=== PATIENT | female | born 1960 | race Caucasian/White ===

== ENCOUNTER → 2018-04-23 13:09 | Outpatient (CLI) | payer OTHER, SELFPAY ==
--- NOTE | 2018-04-23 | DI.US.S_ITS ---
PROCEDURE: US RENAL COMPLETE INDICATIONS: KIDNEY STONES TECHNIQUE: Real-time scanning was performed of the kidneys and bladder, with image documentation. COMPARISON: [facility], CR, XR ABDOMEN 1 VIEW, 04/17/2018, 13:38. [facility], CR, KUB XRAY (1 VIEW ABDOMEN), 11/27/2015, 13:47. [facility], US, RENAL COMPLETE, 01/15/2013, 8:43. FINDINGS: Kidneys: Kidneys are normal in size. Right kidney measures 10.6 cm long; left kidney measures 11.2 cm long. Right renal cortical thickness is 1.3 cm; left renal cortical thickness is 1.2 cm. Renal cortical echotexture is normal. No hydronephrosis. 3 mm left inferior pole nonobstructing stone. Bladder: Pre-void bladder volume is 23 mL. Post-void residual is unable to be evaluated. Pre-void images demonstrate no intraluminal masses or stones. On pre-void images, neither ureteral jets are noted with color Doppler interrogation. (Of note, ureteral jets may not be detectable in up to 25% of cases due to insufficient differences in specific gravity between ureteral and bladder urine). Miscellaneous: No free pelvic fluid. IMPRESSION: 1. 3 mm nonobstructing left renal calcification. Dictated by: Joe Renae Karthik Interpreted: Rubén Rojas MD on 04/23/2018 at 14:25 Approved by: Rubén Rojas M.D. on 04/23/2018 at 17:03
== END ==
PROVIDERS: Family Provider Student in an Organized Health Care Education/Training Program; PCP Physician Assistant Medical; Visit Provider Urology
DX: N20.0 Calculus of kidney (principal)
CPT/HCPCS: 76770

== ENCOUNTER → 2018-07-25 11:44 | Outpatient (CLI) | payer OTHER, SELFPAY ==
--- NOTE | 2018-07-25 | DI.MG.S_ITS ---
BILATERAL DIGITAL SCREENING MAMMOGRAM 3D/2D WITH CAD: 07/25/2018 CLINICAL: Routine screening. Family history of breast cancer. Comparison is made to exams dated: 12/21/2016 mammogram - [facility], 01/12/2016 mammogram, and 01/14/2014 mammogram - [facility]. The tissue of both breasts is heterogeneously dense. This may lower the sensitivity of mammography. Current study was also evaluated with a Computer Aided Detection (CAD) system. No significant masses, calcifications, or other findings are seen in either breast. There has been no significant interval change. IMPRESSION: NEGATIVE There is no mammographic evidence of malignancy. A 1 year screening mammogram is recommended. This exam was interpreted at Station ID: [id number]. NOTE: For mammograms, a report in lay terms will be sent to the patient. Approximately 15% of breast malignancies will not be visualized mammographically. In the management of a palpable breast mass, a negative mammogram must not discourage biopsy of a clinically suspicious lesion. Electronically Signed By: Reny major/arlette:07/25/2018 20:03:30 copy to: EILEEN POSEY letter sent: Normal Exam ACR BI-RADS Category 1: Negative [id number]
== END ==
PROVIDERS: PCP Naturopath; Visit Provider Physician Assistant Medical
DX: Z12.31 Encounter for screening mammogram for malignant neoplasm of breast (principal); Z80.3 Family history of malignant neoplasm of breast
CPT/HCPCS: 77063; 77067

== ENCOUNTER → 2019-01-18 14:19 | Outpatient (CLI) | payer OTHER, SELFPAY ==
--- NOTE | 2019-01-18 | DI.US.S_ITS ---
PROCEDURE: US PELVIC COMPLETE INDICATIONS: OTHER SPECIFIED ABNORMAL UTERINE AND VAGINAL BLEEDING TECHNIQUE: Real-time scanning was performed of the pelvic organs, with image documentation. Additional endovaginal scanning was necessary due to incomplete visualization of the adnexal and endometrial structures by transabdominal scanning. COMPARISON: [facility], US, US RENAL COMPLETE, 04/23/2018, 13:42. [facility], CT, IVP (ABD & PEL WWO CONTRAST), 06/26/2013, 9:58. FINDINGS: Transabdominal scanning: Limited scanning through the kidneys demonstrates normal right kidney measuring 1.0 cm in length. Left kidney measures 11.9 cm in length and there is questionable inferior calculus and mild hydronephrosis, which appear slightly progressed since 04/23/18. No pathologic free abdominal or pelvic fluid. Endovaginal scanning: Uterus: Uterus is normal in size at 4.6 x 2.2 x 3.2 cm. The endometrium measures 2 mm in combined thickness. Ovaries: Right ovary measures 1.5 x 0.8 x 1.1 cm and is unremarkable although only seen transabdominally. Left ovary measures 1.6 x 0.9 x 1.1 cm unremarkable also only seen transabdominally. IMPRESSION: No definite evidence of endometrial thickening. Mildly increased left hydronephrosis and redemonstrated left nephrolithiasis . This could be further assessed with dedicated CT KUB if clinically warranted. Dictated by: Wong Juarez M.D. on 01/18/2019 at 17:16 Approved by: Wong Juarez M.D. on 01/18/2019 at 17:20
[2019-01-18 16:04] LABS: Add Manual Diff / Slide Review NO; Basophils Absolute Auto 100 /uL (0-100); Eosinophils Absolute Auto 100 /uL (0-450); Eosinophils Percent Auto 1.7 % (2-4); Hematocrit 43.8 % (36-46); Hemoglobin 14.8 g/dL (12.0-16.0); Lymphocytes Absolute Auto 1900 /uL (1100-4500); Lymphocytes Percent Auto 31.5 % (25-40); Mean Corpuscular HGB Conc 33.9 % (30-36); Mean Corpuscular Hemoglobin 29.5 PG (26-34); Mean Corpuscular Volume 87.1 fL (80-100); Monocytes Absolute Auto 500 /uL (0-900); Monocytes Percent Auto 8.5 % (3-14); Neutrophils Absolute Auto 3400 /uL (1500-7000); Neutrophils Percent Auto 57.3 % (50-75); Platelet Count 234 X10^3/uL (150-400); Red Blood Cell Count 5.02 X10^6/uL (4.0-5.2)
[2019-01-18 16:57] LABS: Alanine Aminotransferase 21 IU/L (9-52); Albumin 4.7 g/dL (3.5-5.0); Albumin Globulin Ratio 1.7 (1.0-2.8); Alkaline Phosphatase 83 U/L (38-126); Aspartate Aminotransferase 48 IU/L (14-36); BUN Creatinine Ratio 17.5 (6-22); Bilirubin Total 0.3 mg/dL (0.2-1.3); Blood Urea Nitrogen 14 mg/dL (7-17); Calcium 10.3 mg/dL (8.4-10.2); Carbon Dioxide 32 mmol/L (22-32); Chloride 99 mmol/L (98-107); Estimated Glomerular Filt Rate > 60.0 mL/min (>60); Globulin 2.8 g/dL (1.7-4.1); Glucose 89 mg/dL (70-100); HEMOLYSIS < 15 (0-50); Potassium 4.2 mmol/L (3.4-5.1); Sodium 139 mmol/L (137-145); Total Protein 7.5 g/dL (6.3-8.2)
[2019-01-18 17:27] LABS: TSH w/ Reflex to FT4 0.52 uIU/mL (0.47-4.68)
== END ==
PROVIDERS: PCP Internal Medicine; Visit Provider Internal Medicine
DX: N93.8 Other specified abnormal uterine and vaginal bleeding (principal); N13.2 Hydronephrosis with renal and ureteral calculous obstruction; E78.00 Pure hypercholesterolemia, unspecified; I10 Essential (primary) hypertension; R39.89 Other symptoms and signs involving the genitourinary system
CPT/HCPCS: 36415; 76830; 76856; 80053; 84443; 85025

== ENCOUNTER → 2019-02-02 12:13 | Outpatient (CLI) | payer OTHER, SELFPAY ==
[2019-02-02 13:55] LABS: Alanine Aminotransferase 26 IU/L (<35); Albumin 4.8 g/dL (3.5-5.0); Aspartate Aminotransferase 46 IU/L (14-36); Calcium 10.2 mg/dL (8.4-10.2); Gamma Glutamyl Transpeptidase 23 U/L (12-43)
[2019-02-02 14:31] LABS: Ferritin 42.8 ng/mL (11.1-264)
[2019-02-02 14:32] LABS: Hepatitis B Surface Antigen NEGATIVE s/c (NEGATIVE)
[2019-02-02 14:49] LABS: Hep C Virus Ab w/Reflex Quant NEGATIVE s/c (NEGATIVE)
[2019-02-05 15:31] LABS: Hepatitis B Core Antibody Nonreactive (Nonreactive)
[2019-02-05 16:42] LABS: Parathyroid Hormone Int 19 pg/mL (14-64)
[2019-02-06 07:46] LABS: Hepatitis B Surf AB Imm QUANT < 5 mIU/mL (> 9)
== END ==
PROVIDERS: PCP Internal Medicine; Visit Provider Internal Medicine
DX: R74.0 Nonspecific elevation of levels of transaminase and lactic acid dehydrogenase [LDH] (principal); E83.52 Hypercalcemia
CPT/HCPCS: 36415; 82040; 82310; 82728; 82977; 83970; 84450; 84460; 86704; 86706; 86803; 87340

== ENCOUNTER → 2019-02-16 11:39 | Outpatient (CLI) | payer OTHER, SELFPAY ==
[2019-02-16 12:31] LABS: BUN Creatinine Ratio 15.6 (6-22); Blood Urea Nitrogen 14 mg/dL (7-17); Estimated Glomerular Filt Rate > 60.0 mL/min (>60)
== END ==
PROVIDERS: PCP Internal Medicine; Visit Provider Internal Medicine
DX: N13.30 Unspecified hydronephrosis (principal)
CPT/HCPCS: 36415; 82565; 84520

== ENCOUNTER → 2019-02-18 14:16 | Outpatient (CLI) | payer OTHER, SELFPAY ==
--- NOTE | 2019-02-18 14:23 | DI.CT.S_ITS ---
PROCEDURE: CT ABDOMEN PELVIS WO/W CON INDICATIONS: Unspecified hydronephrosis TECHNIQUE: After the administration of oral contrast, 5 mm thick sections acquired from the diaphragms to the iliac crests. After the administration of intravenous contrast, 5 mm thick sections acquired from the diaphragms to the symphysis. 5 mm thick coronal and sagittal reformats were acquired. For radiation dose reduction, the following was used: automated exposure control, adjustment of mA and/or kV according to patient size. COMPARISON: [facility], CT, IVP (ABD & PEL WWO CONTRAST), 06/26/2013, 9:58. [facility], US, US RENAL COMPLETE, 04/23/2018, 13:42. [facility], US, US PELVIC COMPLETE, 01/18/2019, 14:48. FINDINGS: Image quality: Excellent. ABDOMEN: Lung bases: Lung bases are clear. Heart size is normal. Solid organs: Liver is normal in size and enhancement. Gallbladder appears normal. Biliary system is non-dilated. Pancreas enhances normally. Spleen is normal in size and enhancement. No adrenal nodules. Both kidneys are normal in size. No right-sided hydronephrosis or nephrolithiasis. Left lower third collecting system nephrolithiasis is seen on precontrast imaging, with the largest calculus in this area measuring up to 5 mm, nonobstructive. An extrarenal pelvis and chronic hydronephrosis is present at the left kidney, chronically present and also well visualized and are very similar degree 06/26/13. 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 Bowel and peritoneum: Stomach, small and large bowel loops are normal in caliber and wall thickness. No free fluid or air. Nodes and vessels: No retroperitoneal or mesenteric adenopathy by size criteria. Aorta and inferior vena are normal in caliber. Miscellaneous: No ventral hernias. PELVIS: Genitourinary: Bladder wall thickness is normal. Miscellaneous: No inguinal hernias or adenopathy. Bones: No suspicious bony lesions. No vertebral body compression fractures. IMPRESSION: 1. Chronic mild to moderate hydronephrosis at the left kidney, with several renal calculi present within the lower third left renal collecting system each of which appears nonobstructive and the largest of which is 5 mm in diameter. The appearance given its stability over time from 06/26/[address] scanning is considered almost certainly to be a reflection of chronic congenital ureteropelvic junction stenosis. As noted, there is symmetric renal cortical enhancement both in 2014 and in the current study, and no renal cortical atrophy. 2. There are several pelvic phleboliths separate from the course of the distal ureters bilaterally. No bladder abnormality seen. Dictated by: Duane Morales M.D. on 02/18/2019 at 16:49 Approved by: Duane Morales M.D. on 02/18/2019 at 16:55
== END ==
PROVIDERS: PCP Internal Medicine; Visit Provider Internal Medicine
DX: N13.2 Hydronephrosis with renal and ureteral calculous obstruction (principal)
CPT/HCPCS: 74178; Q9967

== ENCOUNTER → 2019-05-16 15:08 | Outpatient (CLI) | payer OTHER, SELFPAY ==
--- NOTE | 2019-05-16 | DI.RAD.S_ITS ---
PROCEDURE: XR LUMBAR SPINE 2-3V INDICATIONS: coccydynia TECHNIQUE: 2 views of the lumbar spine were acquired. COMPARISON: [facility], CT, CT ABDOMEN PELVIS WO/W CON, 02/18/2019, 14:19. FINDINGS: Bones: 5 [id number] vertebrae are present. There is normal bony alignment. No vertebral body compression fractures. No suspicious bony lesions. There is degenerative disc disease, [id number] at L5-S1, and mild to moderate at L2-L3, L3-L4 and L4-L5. Moderate facet arthropathy at L4-L5 and L5-S1. Soft tissues: Overlying bowel gas pattern is normal. Calcific densities projecting to the hips bilaterally are soft tissue in origin I see on CT. IMPRESSION: Degenerative disc and facet disease in lumbar spine as described. Dictated by: Shanw Benitez M.D. on 05/16/2019 at 17:17 Approved by: Shawn Benitez M.D. on 05/16/2019 at 17:20
--- NOTE | 2019-05-16 | DI.RAD.S_ITS ---
PROCEDURE: XR SACRUM COCCYX MIN 2V INDICATIONS: FALL LANDED ON COCCYX TECHNIQUE: 3 views of the sacrum and coccyx acquired. COMPARISON: None. FINDINGS: Bones: No fractures or dislocations. No suspicious bony lesions. Soft tissues: Visualized bowel gas pattern is normal. No suspicious soft tissue densities. IMPRESSION: Normal for age, source of current pain after trauma symptoms is not seen. Please note that MR scanning provides the most accurate method for detection of nondisplaced sacral fractures or additional pelvic injuries related to sacral trauma. Dictated by: Duane Morales M.D. on 05/16/2019 at 17:07 Approved by: Daune Morales M.D. on 05/16/2019 at 17:08
== END ==
PROVIDERS: PCP Internal Medicine; Referring Provider Internal Medicine; Visit Provider Internal Medicine
DX: S30.0XXA Contusion of lower back and pelvis, initial encounter (principal); M53.3 Sacrococcygeal disorders, not elsewhere classified; M51.36 Other intervertebral disc degeneration, lumbar region; M51.37 Other intervertebral disc degeneration, lumbosacral region; M47.816 Spondylosis without myelopathy or radiculopathy, lumbar region; M47.817 Spondylosis without myelopathy or radiculopathy, lumbosacral region; W19.XXXA Unspecified fall, initial encounter
CPT/HCPCS: 72100; 72220

== ENCOUNTER → 2019-05-20 06:15 | Outpatient (CLI) | payer OTHER, SELFPAY ==
--- NOTE | 2019-05-20 | DI.MRI.S_ITS ---
PROCEDURE: MR ANGIO HEAD WO CON INDICATIONS: INJURY OF HEAD TECHNIQUE: Noncontrast axial 3-D [id number] MR angiogram, with 3-dimensional maximum intensity projection (MIP) reformats of the internal carotid arteries and posterior circulation then performed. COMPARISON: None. FINDINGS: Image quality: Excellent. Anterior circulation: Intracranial internal carotid arteries demonstrate normal size and intraluminal flow signal. The flow within the paired anterior cerebral arteries is normal and symmetric. The flow within the middle cerebral arteries is normal and symmetric. The anterior communicating artery is seen. No stenoses, occlusions, or aneurysms. Posterior circulation: Visualized portions of the vertebral arteries demonstrate normal caliber, and join to form a normal appearing basilar artery. There is a prominent right posterior communicating artery seen, with an accompanying diminutive right P1 segment. 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 The flow within the posterior cerebral arteries is normal and symmetric. No stenoses, occlusions, or aneurysms. IMPRESSION: No significant intracranial arterial abnormality is seen. 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 Dictated by: Gumaro Del Angel M.D. on 05/20/2019 at 8:19 Approved by: Gumaro Del Angel M.D. on 05/20/2019 at 8:22
--- NOTE | 2019-05-20 | DI.MRI.S_ITS ---
PROCEDURE: MR CERVICAL SPINE WO CON INDICATIONS: INJURY OF HEAD TECHNIQUE: Noncontrast sagittal T1 spin echo and T2 fast spin echo, sagittal STIR, foraminal oblique sagittal T2 fast spin echo, and axial gradient echo or T2 fast spin echo through the cervical spine. COMPARISON: None. FINDINGS: Image quality: Excellent. Alignment and Curvature: There is normal bony alignment. Bone Marrow: Marrow demonstrates normal overall signal. Spinal Cord: Visualized spinal cord has normal size and signal. No cerebellar tonsillar herniation. Paraspinous Soft Tissues: No paravertebral masses. Prevertebral soft tissues are normal in thickness. C2-C3: No canal stenosis or foraminal stenosis C3-C4: Disc desiccation and mild disc height loss. Mild uncovertebral joint hypertrophy. Mild left facet hypertrophy. No canal stenosis or significant foraminal stenosis. C4-C5: Disc desiccation and moderate disc height loss. Minimal disc bulge. No canal stenosis. Mild bilateral uncovertebral joint hypertrophy. Mild bilateral facet hypertrophy. Moderate left foraminal narrowing with mild flattening deformity of the exiting left L5 nerve root. C5-C6: Mild disc of loss. Mild posterior disc bulge. Bilateral uncovertebral joint hypertrophy. Mild bilateral facet hypertrophy. Moderate bilateral foraminal narrowing with mild flattening deformity of the exiting C6 nerve roots. C6-C7: Disc bulge. No canal stenosis or foraminal stenosis. C7-T1: No canal stenosis or foraminal stenosis. IMPRESSION: 1. Multilevel disc bulges. No canal stenosis. 2. Multilevel foraminal narrowing as described above. Dictated by: Cristo Leahy M.D. on 05/20/2019 at 8:59 Approved by: Cristo Leahy M.D. on 05/20/2019 at 9:06
== END ==
PROVIDERS: PCP Internal Medicine; Referring Provider Internal Medicine; Visit Provider Internal Medicine
DX: S09.90XA Unspecified injury of head, initial encounter (principal); M50.222 Other cervical disc displacement at C5-C6 level; M48.02 Spinal stenosis, cervical region; X58.XXXA Exposure to other specified factors, initial encounter
CPT/HCPCS: 70544; 72141

== ENCOUNTER 2020-04-06 15:37 | Emergency (ER) | payer OTHER, SELFPAY ==
[2020-04-06 15:55] VITALS: BP 131/71; PULSE 80; RESP 20; TEMP 36.8; O2SAT 98
[2020-04-06 16:40] LABS: Bacteria Urine None Seen
[2020-04-06 16:45] LABS: Add Manual Diff / Slide Review NO; Basophils Absolute Auto 0 /uL (0-100); Basophils Percent Auto 0.1 % (0-2); Eosinophils Absolute Auto 0 /uL (0-450); Hematocrit 45.1 % (36-46); Hemoglobin 15.1 g/dL (12.0-16.0); Lymphocytes Absolute Auto 600 /uL (1100-4500); Lymphocytes Percent Auto 5.6 % (25-40); Mean Corpuscular HGB Conc 33.5 % (30-36); Mean Corpuscular Hemoglobin 29.1 PG (26-34); Mean Corpuscular Volume 86.9 fL (80-100); Monocytes Absolute Auto 300 /uL (0-900); Neutrophils Absolute Auto 9600 /uL (1500-7000); Neutrophils Percent Auto 91.3 % (50-75); Platelet Count 234 X10^3/uL (150-400); Red Blood Cell Count 5.19 X10^6/uL (4.0-5.2); Red Cell Distribution Width 13.6 % (11.6-14.8); White Blood Cell Count 10.6 X10^3/uL (4.5-11.0)
[2020-04-06 16:59] LABS: Alanine Aminotransferase 27 IU/L (<35); Albumin 4.8 g/dL (3.5-5.0); Albumin Globulin Ratio 1.6 (1.0-2.8); Alkaline Phosphatase 71 U/L (38-126); Aspartate Aminotransferase 50 IU/L (14-36); BUN Creatinine Ratio 18.6 (6-22); Bilirubin Total 0.4 mg/dL (0.2-1.3); Blood Urea Nitrogen 18 mg/dL (7-17); Calcium 9.9 mg/dL (8.4-10.2); Carbon Dioxide 31 mmol/L (22-32); Chloride 99 mmol/L (98-107); Estimated Glomerular Filt Rate 58.4 mL/min (>60); Glucose 121 mg/dL (80-110); HEMOLYSIS < 15 (0-50); Lipase 120 U/L (23-300); Potassium 3.3 mmol/L (3.4-5.1); Sodium 137 mmol/L (137-145); Total Protein 7.8 g/dL (6.3-8.2)
[2020-04-06 17:08] LABS: Amorphous Sediment Urine 1+; Culture Indicated Urine Cult Not Indicated; RBC Urine 5-10/HPF (0-5/HPF); Squamous Epithelial Cell Urine 0-1 /HPF (0-5/HPF); WBC Urine 0-1/HPF (0-5/HPF)
[2020-04-06 17:13] LABS: Prothrombin Time 11.6 SECONDS (10.1-12.7)
[2020-04-06 17:15] LABS: PTT Partial Thromboplastin Tim 27 SECONDS (26.4-36.2)
[2020-04-06] MEDS: KETOROLAC 60 MG/2 ML VIAL 30 MG IV (17:27)
--- NOTE | 2020-04-06 17:30 | DI.RAD.S_ITS ---
PROCEDURE: XR KUB INDICATIONS: flank pain hx kidney stone TECHNIQUE: One view of the abdomen acquired. COMPARISON: [facility], CT, CT ABDOMEN PELVIS WO/W CON, 02/18/2019, 14:19. [facility], CR, XR LUMBAR SPINE 2-3V, 05/16/2019, 15:32. [facility], CR, KUB XRAY (1 VIEW ABDOMEN), 11/27/2015, 13:47. FINDINGS: Surgical changes and devices: None. Bowel: Bowel gas pattern is normal. Soft tissues: There are nonobstructing left-sided kidney stones, which measure up to 4 mm. No definite ureteral stones are seen. There is a left-sided pelvic phlebolith, which is stable compared to the prior plain film dated 05/16/2019. Bones: No suspicious bony lesions. IMPRESSION: No suspicious stones are seen by plain film. If clinically appropriate, please consider a dedicated follow-up noncontrast CT of the abdomen and pelvis for further evaluation. Dictated by: Gumaro Del Angel M.D. on 04/06/2020 at 16:43 Approved by: Gumaro Del Angel M.D. on 04/06/2020 at 16:44
--- NOTE | 2020-04-06 19:03 | ED.GENADULT ---
HPI - General Adult General Chief complaint: Abdominal Pain Stated complaint: Not Feeling Good, Flank/Back Pain,HX Kidney Stones Time Seen by Provider: 04/06/20 18:07 Source: patient Mode of arrival: Ambulatory Related Data Home Medications Medication Instructions Recorded Confirmed cholecalciferol (vitamin D3) 125 5,000 unit PO DAILY 07/27/18 01/17/20 mcg (5,000 unit) capsule hydrochlorothiazide 12.5 mg tablet 12.5 mg PO BID tab 07/27/18 01/17/20 melatonin 3 mg tablet 3 mg PO BEDTIME PRN 07/27/18 01/17/20 omega-3 fatty acids PO 07/27/18 01/17/20 coenzyme Q10 10 mg capsule 10 mg PO ONCE 12/10/19 01/17/20 multivitamin with minerals 1 tab PO DAILY 12/10/19 01/17/20 potassium citrate 10 mEq (1,080 10 meq PO DAILY PRN tab 12/10/19 01/17/20 mg) tablet,extended release Previous Rx's Medication Instructions Recorded triamcinolone acetonide 0.1 % 1 applictn TOP BID #15 gram 12/10/19 topical ointment Allergies Allergy/AdvReac Type Severity Reaction Status Date / Time Penicillins [PENICILLINS] Allergy Unknown Unverified 04/06/20 18:32 Patient History Medical History (Updated 01/14/20 @ 14:52 by Emilee Arizmendi) Colon polyps (~2011) Eczema Headache Hemorrhoid Herpes (~1981) Hx of renal calculi (~2009) Measles (~1965) Osteopenia (~2006) Osteoporosis (~2018) Wears glasses Surgical History (Updated 01/14/20 @ 14:52 by Emilee Arizmendi) Anesthesia History of lithotripsy Family History (Updated 01/14/20 @ 15:03 by Emilee Arizmendi) Father Prostate cancer Diabetes mellitus Mother Atrial fibrillation Cancer Dupuytren's contracture Brother History of heart transplant Diabetes mellitus Brother Dupuytren's contracture Grandfather History of heart disease Grandmother Stroke Grandfather Cancer Social History Smoking Status: Never smoker Smoking Status: Never smoker Exam Initial Vital Signs Initial Vital Signs: Vital Signs Temperature 98.3 F 04/06/20 15:55 Pulse Rate 80 04/06/20 15:55 Respiratory Rate 20 04/06/20 15:55 Blood Pressure 131/71 01/11/21 15:55 Pulse Oximetry 98 04/06/20 15:55 Course Orders Ordered: ED Orders 04/06/20 15:59 EKG-12 Lead Stat 04/06/20 16:30 Complete Blood Count AUTO DIFF Stat Comprehensive Metabolic Panel Stat Lipase Stat Partial Thromboplastin Time Stat Prothrombin Time INR Stat Urine Microscopic Stat 04/06/20 17:30 XR KUB Stat Discontinued Medications Sodium Chloride (Normal Saline 0.9%) 1,000 mls @ 1,000 mls/hr IV BOLUS ONE Stop: 04/06/20 18:10 Last Admin: 04/06/20 18:32 Dose: Not Given Documented by: GREGG Ketorolac Tromethamine (Ketorolac 60 Mg/2 Ml Vial) 30 mg IV NOW ONE Stop: 04/06/20 17:12 Last Admin: 04/06/20 17:27 Dose: 30 mg Documented by: GREGG Ondansetron HCl (Ondansetron 4 Mg/2 Ml Inj) 4 mg IV NOW ONE Stop: 04/06/20 17:12 Last Admin: 04/06/20 18:32 Dose: Not Given Documented by: GREGG Vital Signs Vital signs: Vital Signs - 8 hr 04/06/20 15:55 Temperature 98.3 F Pulse Rate 80 Respiratory Rate 20 Blood Pressure 131/71 Pulse Oximetry 98 Medical Decision Making Lab Data Result diagrams: 04/06/20 16:30 04/06/20 16:30 Labs: Lab Results 04/06/20 04/06/20 04/06/20 Range/Units 16:30 16:30 16:30 WBC 10.6 (4.5-11.0) X10^3/uL RBC 5.19 (4.0-5.2) X10^6/uL Hgb 15.1 (12.0-16.0) g/dL Hct 45.1 (36-46) % MCV 86.9 (80-100) fL MCH 29.1 (26-34) PG MCHC 33.5 (30-36) % RDW 13.6 (11.6-14.8) % Plt Count 234 (150-400) X10^3/uL Neut % (Auto) 91.3 H (50-75) % Lymph % (Auto) 5.6 L (25-40) % [place] % (Auto) 3.0 (3-14) % Eos % (Auto) 0.0 L (2-4) % Baso % (Auto) 0.1 (0-2) % Neut # (Auto) 9600 H (2874-9704) /uL Lymph # (Auto) 600 L (5607-3726) /uL [place] # (Auto) 300 (0-900) /uL Eos # (Auto) 0 (0-450) /uL Baso # (Auto) 0 (0-100) /uL PT 11.6 (10.1-12.7) SECONDS INR 1.0 (0.9-1.3) APTT 27 (26.4-36.2) SECONDS Sodium 137 (137-145) mmol/L Potassium 3.3 L (3.4-5.1) mmol/L Chloride 99 (98-107) mmol/L Carbon Dioxide 31 (22-32) mmol/L BUN 18 H (7-17) mg/dL Creatinine 0.97 (0.52-1.04) mg/dL Estimated GFR 58.4 L (>60) mL/min BUN/Creatinine Ratio 18.6 (6-22) Glucose 121 H (80-110) mg/dL Calcium 9.9 (8.4-10.2) mg/dL Total Bilirubin 0.4 (0.2-1.3) mg/dL AST 50 H (14-36) IU/L ALT 27 (<35) IU/L Alkaline Phosphatase 71 (38-126) U/L Total Protein 7.8 (6.3-8.2) g/dL Albumin 4.8 (3.5-5.0) g/dL Globulin 3.0 (1.7-4.1) g/dL Albumin/Globulin Ratio 1.6 (1.0-2.8) Lipase 120 (23-300) U/L Urine RBC (0-5/HPF) Urine WBC (0-5/HPF) Ur Squamous Epith Cells (0-5/HPF) Amorphous Sediment Urine Bacteria (None) Ur Culture Indicated? 04/06/20 Range/Units 16:30 WBC (4.5-11.0) X10^3/uL RBC (4.0-5.2) X10^6/uL Hgb (12.0-16.0) g/dL Hct (36-46) % MCV (80-100) fL MCH (26-34) PG MCHC (30-36) % RDW (11.6-14.8) % Plt Count (150-400) X10^3/uL Neut % (Auto) (50-75) % Lymph % (Auto) (25-40) % [place] % (Auto) (3-14) % Eos % (Auto) (2-4) % Baso % (Auto) (0-2) % Neut # (Auto) (0535-9962) /uL Lymph # (Auto) (2407-6559) /uL [place] # (Auto) (0-900) /uL Eos # (Auto) (0-450) /uL Baso # (Auto) (0-100) /uL PT (10.1-12.7) SECONDS INR (0.9-1.3) APTT (26.4-36.2) SECONDS Sodium (137-145) mmol/L Potassium (3.4-5.1) mmol/L Chloride (98-107) mmol/L Carbon Dioxide (22-32) mmol/L BUN (7-17) mg/dL Creatinine (0.52-1.04) mg/dL Estimated GFR (>60) mL/min BUN/Creatinine Ratio (6-22) Glucose (80-110) mg/dL Calcium (8.4-10.2) mg/dL Total Bilirubin (0.2-1.3) mg/dL AST (14-36) IU/L ALT (<35) IU/L Alkaline Phosphatase (38-126) U/L Total Protein (6.3-8.2) g/dL Albumin (3.5-5.0) g/dL Globulin (1.7-4.1) g/dL Albumin/Globulin Ratio (1.0-2.8) Lipase (23-300) U/L Urine RBC 5-10/hpf H (0-5/HPF) Urine WBC 0-1/hpf (0-5/HPF) Ur Squamous Epith Cells 0-1 /hpf (0-5/HPF) Amorphous Sediment 1+ Urine Bacteria None seen (None) Ur Culture Indicated? Cult not indicated Urine Dip Bedside Urine Glucose Negative Bedside Urine Bilirubin - Negative Bedside Urine Ketone - Negative Urine Specific [place] 1.020 Bedside Urine Occult Blood ++ Bedside Urine pH 7.0 Bedside Urine Protein - Negative Bedside Urine Urobilinogen - Negative Bedside Urine Nitrite - Negative Bedside Urine Leukocytes - Negative Esterase Point of care testing: Urine Dip Bedside Urine Glucose Negative Bedside Urine Bilirubin - Negative Bedside Urine Ketone - Negative Urine Specific [place] 1.020 Bedside Urine Occult Blood ++ Bedside Urine pH 7.0 Bedside Urine Protein - Negative Bedside Urine Urobilinogen - Negative Bedside Urine Nitrite - Negative Bedside Urine Leukocytes - Negative Esterase Discharge Plan Departure Prescriptions: No Action potassium citrate 10 mEq (1,080 mg) tablet extended release 10 meq PO DAILY PRNRF: 0 multivitamin with minerals [Hair,Skin and Nails] Tablet 1 tab PO DAILY RF: 0 coenzyme Q10 [Co Q-10] 10 mg capsule 10 mg PO ONCE RF: 0 triamcinolone acetonide 0.1 % ointment 1 applictn TOP BID Qty: 15 RF: 2 hydrochlorothiazide 12.5 mg tablet 12.5 mg PO BID RF: 0 cholecalciferol (vitamin D3) 5,000 unit capsule 5,000 unit PO DAILY RF: 0 melatonin 3 mg tablet 3 mg PO BEDTIME PRNRF: 0 omega-3 fatty acids PO RF: 0
--- NOTE | 2020-04-06 19:03 | ED.GENADULT ---
HPI - General Adult General Chief complaint: Abdominal Pain Stated complaint: Not Feeling Good, Flank/Back Pain,HX Kidney Stones Time Seen by Provider: 04/06/20 18:07 Source: patient Mode of arrival: Ambulatory Limitations: no limitations History of Present Illness HPI narrative: Patient is a 60-year-old female here for evaluation of chills and fatigue and left-sided flank pain. The chills and fatigue been for the past 24 hours. She has not had no objective fevers. No nausea vomiting. No change in urine habits. No change in bowel habits. She does have a history of kidney stones. Is followed by urology. She denies any rashes. Related Data Home Medications Medication Instructions Recorded Confirmed cholecalciferol (vitamin D3) 125 5,000 unit PO DAILY 07/27/18 01/17/20 mcg (5,000 unit) capsule hydrochlorothiazide 12.5 mg tablet 12.5 mg PO BID tab 07/27/18 01/17/20 melatonin 3 mg tablet 3 mg PO BEDTIME PRN 07/27/18 01/17/20 omega-3 fatty acids PO 07/27/18 01/17/20 coenzyme Q10 10 mg capsule 10 mg PO ONCE 12/10/19 01/17/20 multivitamin with minerals 1 tab PO DAILY 12/10/19 01/17/20 potassium citrate 10 mEq (1,080 10 meq PO DAILY PRN tab 12/10/19 01/17/20 mg) tablet,extended release Previous Rx's Medication Instructions Recorded triamcinolone acetonide 0.1 % 1 applictn TOP BID #15 gram 12/10/19 topical ointment Allergies Allergy/AdvReac Type Severity Reaction Status Date / Time Penicillins [PENICILLINS] Allergy Unknown Unverified 04/06/20 18:32 Review of Systems Constitutional Constitutional: Reports chills, Reports fatigue and Denies fever(s) Cardiovascular Cardiovascular: Denies chest pain and Denies dyspnea Respiratory Respiratory: Denies dyspnea Gastrointestinal Gastrointestinal: Denies change in bowel habits, Denies nausea and Denies vomiting Comments: Left-sided flank pain Genitourinary Genitourinary: Denies hematuria, Denies dysuria and Reports flank pain Genitourinary: Denies hematuria, Denies dysuria and Reports flank pain Musculoskeletal Musculoskeletal: Denies arthralgias and Denies myalgias Integumentary/Breasts Skin/Breast: Denies lesions and Denies rash Neurologic Neurologic: Denies behavioral changes Psychiatric Psychiatric: Denies behavioral changes Endocrine Endocrine: Reports fatigue Hematologic/Lymphatic Hematologic/Lymphatic: Denies easy bleeding and Denies easy bruising Allergic/Immunologic Allergic/Immunologic: Denies urticaria Patient History Medical History Colon polyps (~2011) Eczema Headache Hemorrhoid Herpes (~1981) Hx of renal calculi (~2009) Measles (~1965) Osteopenia (~2006) Osteoporosis (~2019) Wears glasses Surgical History (Updated 01/14/20 @ 14:52 by Emilee Arizmendi) Anesthesia History of lithotripsy Family History (Updated 01/14/20 @ 15:03 by mEilee Arizmendi) Father Prostate cancer Diabetes mellitus Mother Atrial fibrillation Cancer Dupuytren's contracture Brother History of heart transplant Diabetes mellitus Brother Dupuytren's contracture Grandfather History of heart disease Grandmother Stroke Grandfather Cancer Social History Smoking Status: Never smoker Smoking Status: Never smoker Exam Initial Vital Signs Initial Vital Signs: Vital Signs Temperature 98.3 F 04/06/20 15:55 Pulse Rate 80 04/06/20 15:55 Respiratory Rate 20 04/06/20 15:55 Blood Pressure 131/71 04/06/20 15:55 Pulse Oximetry 98 04/06/20 15:55 Const General: cooperative and comfortable Limitations: mental status not altered HENMT Head: normal to inspection and normocephalic Resp Effort & Inspection: normal respiratory effort Auscultation: clear to auscultation bilaterally Cardio Rate: regular rate Rhythm: regular rhythm GI Inspection: non-distended Palpation: soft Back/Spine/Pelvis Back: CVA tenderness left Skin Lesions: no lesions Rashes: no rashes Extrem General: capillary refill normal Psych Appearance: grossly normal and well kempt Course Orders Ordered: ED Orders 04/06/20 15:59 EKG-12 Lead Stat 04/06/20 16:30 Complete Blood Count AUTO DIFF Stat Comprehensive Metabolic Panel Stat Lipase Stat Partial Thromboplastin Time Stat Prothrombin Time INR Stat Urine Microscopic Stat 04/06/20 17:30 XR KUB Stat Discontinued Medications Sodium Chloride (Normal Saline 0.9%) 1,000 mls @ 1,000 mls/hr IV BOLUS ONE Stop: 04/06/20 18:10 Last Admin: 04/06/20 18:32 Dose: Not Given Documented by: SIERRAONER Ketorolac Tromethamine (Ketorolac 60 Mg/2 Ml Vial) 30 mg IV NOW ONE Stop: 04/06/20 17:12 Last Admin: 04/06/20 17:27 Dose: 30 mg Documented by: SIERRAONER Ondansetron HCl (Ondansetron 4 Mg/2 Ml Inj) 4 mg IV NOW ONE Stop: 04/06/20 17:12 Last Admin: 04/06/20 18:32 Dose: Not Given Documented by: SIERRAONER Vital Signs Vital signs: Vital Signs - 8 hr 04/06/20 15:55 Temperature 98.3 F Pulse Rate 80 Respiratory Rate 20 Blood Pressure 131/71 Pulse Oximetry 98 Medical Decision Making Lab Data Lab results reviewed: Yes I reviewed the patient's lab results. Result diagrams: 04/06/20 16:30 04/06/20 16:30 Labs: Lab Results 04/06/20 04/06/20 04/06/20 Range/Units 16:30 16:30 16:30 WBC 10.6 (4.5-11.0) X10^3/uL RBC 5.19 (4.0-5.2) X10^6/uL Hgb 15.1 (12.0-16.0) g/dL Hct 45.1 (36-46) % MCV 86.9 (80-100) fL MCH 29.1 (26-34) PG MCHC 33.5 (30-36) % RDW 13.6 (11.6-14.8) % Plt Count 234 (150-400) X10^3/uL Neut % (Auto) 91.3 H (50-75) % Lymph % (Auto) 5.6 L (25-40) % Harding % (Auto) 3.0 (3-14) % Eos % (Auto) 0.0 L (2-4) % Baso % (Auto) 0.1 (0-2) % Neut # (Auto) 9600 H (5181-1447) /uL Lymph # (Auto) 600 L (8843-5390) /uL Harding # (Auto) 300 (0-900) /uL Eos # (Auto) 0 (0-450) /uL Baso # (Auto) 0 (0-100) /uL PT 11.6 (10.1-12.7) SECONDS INR 1.0 (0.9-1.3) APTT 27 (26.4-36.2) SECONDS Sodium 137 (137-145) mmol/L Potassium 3.3 L (3.4-5.1) mmol/L Chloride 99 (98-107) mmol/L Carbon Dioxide 31 (22-32) mmol/L BUN 18 H (7-17) mg/dL Creatinine 0.97 (0.52-1.04) mg/dL Estimated GFR 58.4 L (>60) mL/min BUN/Creatinine Ratio 18.6 (6-22) Glucose 121 H (80-110) mg/dL Calcium 9.9 (8.4-10.2) mg/dL Total Bilirubin 0.4 (0.2-1.3) mg/dL AST 50 H (14-36) IU/L ALT 27 (<35) IU/L Alkaline Phosphatase 71 (38-126) U/L Total Protein 7.8 (6.3-8.2) g/dL Albumin 4.8 (3.5-5.0) g/dL Globulin 3.0 (1.7-4.1) g/dL Albumin/Globulin Ratio 1.6 (1.0-2.8) Lipase 120 (23-300) U/L Urine RBC (0-5/HPF) Urine WBC (0-5/HPF) Ur Squamous Epith Cells (0-5/HPF) Amorphous Sediment Urine Bacteria (None) Ur Culture Indicated? 04/06/20 Range/Units 16:30 WBC (4.5-11.0) X10^3/uL RBC (4.0-5.2) X10^6/uL Hgb (12.0-16.0) g/dL Hct (36-46) % MCV (80-100) fL MCH (26-34) PG MCHC (30-36) % RDW (11.6-14.8) % Plt Count (150-400) X10^3/uL Neut % (Auto) (50-75) % Lymph % (Auto) (25-40) % Harding % (Auto) (3-14) % Eos % (Auto) (2-4) % Baso % (Auto) (0-2) % Neut # (Auto) (3391-6375) /uL Lymph # (Auto) (9272-9787) /uL Harding # (Auto) (0-900) /uL Eos # (Auto) (0-450) /uL Baso # (Auto) (0-100) /uL PT (10.1-12.7) SECONDS INR (0.9-1.3) APTT (26.4-36.2) SECONDS Sodium (137-145) mmol/L Potassium (3.4-5.1) mmol/L Chloride (98-107) mmol/L Carbon Dioxide (22-32) mmol/L BUN (7-17) mg/dL Creatinine (0.52-1.04) mg/dL Estimated GFR (>60) mL/min BUN/Creatinine Ratio (6-22) Glucose (80-110) mg/dL Calcium (8.4-10.2) mg/dL Total Bilirubin (0.2-1.3) mg/dL AST (14-36) IU/L ALT (<35) IU/L Alkaline Phosphatase (38-126) U/L Total Protein (6.3-8.2) g/dL Albumin (3.5-5.0) g/dL Globulin (1.7-4.1) g/dL Albumin/Globulin Ratio (1.0-2.8) Lipase (23-300) U/L Urine RBC 5-10/hpf H (0-5/HPF) Urine WBC 0-1/hpf (0-5/HPF) Ur Squamous Epith Cells 0-1 /hpf (0-5/HPF) Amorphous Sediment 1+ Urine Bacteria None seen (None) Ur Culture Indicated? Cult not indicated Urine Dip Bedside Urine Glucose Negative Bedside Urine Bilirubin - Negative Bedside Urine Ketone - Negative Urine Specific Sheldon 1.020 Bedside Urine Occult Blood ++ Bedside Urine pH 7.0 Bedside Urine Protein - Negative Bedside Urine Urobilinogen - Negative Bedside Urine Nitrite - Negative Bedside Urine Leukocytes - Negative Esterase Point of care testing: Urine Dip Bedside Urine Glucose Negative Bedside Urine Bilirubin - Negative Bedside Urine Ketone - Negative Urine Specific Sheldon 1.020 Bedside Urine Occult Blood ++ Bedside Urine pH 7.0 Bedside Urine Protein - Negative Bedside Urine Urobilinogen - Negative Bedside Urine Nitrite - Negative Bedside Urine Leukocytes - Negative Esterase Imaging Data Chest x-ray: Radiologist's Impression: [facility] [place] [id number] ReportSigned Patient: Shalonda Lennon LMR#: [id number]: 9Acct:[id number]/Sex: 60 / FDate of Service: 04/06/20Loc: EDAccession Number: [id number] Procedure: XR KUB Ordering Provider: Nancy Weldon D.O. PROCEDURE: XR KUB INDICATIONS: flank pain hx kidney stone TECHNIQUE: One view of the abdomen acquired. COMPARISON: [facility], CT, CT ABDOMEN PELVIS WO/W CON, 02/18/2019, 14:19. [facility], CR, XR LUMBAR SPINE 2-3V, 05/16/2019, 15:32. [facility], CR, KUB XRAY (1 VIEW ABDOMEN), 11/27/2015, 13:47. FINDINGS: Surgical changes and devices: None. Bowel: Bowel gas pattern is normal. Soft tissues: There are nonobstructing left-sided kidney stones, which measure up to 4 mm. No definite ureteral stones are seen. There is a left-sided pelvic phlebolith, which is stable compared to the prior plain film dated 05/16/2019. Bones: No suspicious bony lesions. IMPRESSION: No suspicious stones are seen by plain film. If clinically appropriate, please consider a dedicated follow-up noncontrast CT of the abdomen and pelvis for further evaluation. Dictated by: Gumaro Del Angel M.D. on 04/06/2020 at 16:43 Approved by: Gumaro Del Angel M.D. on 04/06/2020 at 16:44 MDM Narrative Medical decision making narrative: Urinalysis has blood however no signs of an infection. The x-rays do show 4 mm left-sided kidney stone without any other urgent or surgical issues. Her kidney functions unremarkable. No indication for antibiotics. We will hold on a CT scan for now as she states that she is scheduled to see her urologist to discuss further CT scanning here in the next couple days. Feel patient is safe for discharge home. She was given return precautions and follow-up instructions. She expressed understanding and agreement. Discharge Plan Departure Patient Disposition: Home Clinical Impression: Acute left flank pain, Hematuria Instructions: DI for Hematuria Activity Restrictions/Additional Instructions: Continue all of your medications as directed. Also recommend you contact your urologist for a follow-up. Return to the emergency department for any new or worsening symptoms Prescriptions: No Action potassium citrate 10 mEq (1,080 mg) tablet extended release 10 meq PO DAILY PRNRF: 0 multivitamin with minerals [Hair,Skin and Nails] Tablet 1 tab PO DAILY RF: 0 coenzyme Q10 [Co Q-10] 10 mg capsule 10 mg PO ONCE RF: 0 triamcinolone acetonide 0.1 % ointment 1 applictn TOP BID Qty: 15 RF: 2 hydrochlorothiazide 12.5 mg tablet 12.5 mg PO BID RF: 0 cholecalciferol (vitamin D3) 5,000 unit capsule 5,000 unit PO DAILY RF: 0 melatonin 3 mg tablet 3 mg PO BEDTIME PRNRF: 0 omega-3 fatty acids PO RF: 0 Referrals: Kiley Boles MD [Primary Care Provider] -
== END 2020-04-06 19:29 | disposition home or self-care (01) ==
PROVIDERS: Emergency Medicine; Emergency Provider Emergency Medicine; PCP Family Medicine
DX: R10.9 Unspecified abdominal pain (principal); R31.9 Hematuria, unspecified; Z87.442 Personal history of urinary calculi
CPT/HCPCS: 36415; 74018; 80053; 81003; 81015; 83690; 85025; 85610; 85730; 93005; 96374; 99283; 99284; J1885

== ENCOUNTER → 2020-06-02 17:19 | Outpatient (CLI) | payer OTHER, SELFPAY ==
--- NOTE | 2020-06-02 17:20 | DI.MG.S_ITS ---
BILATERAL DIGITAL SCREENING MAMMOGRAM 3D/2D WITH CAD: 06/02/2020 CLINICAL: Routine screening. Family history of breast cancer. Comparison is made to exams dated: 07/25/2018 mammogram - [facility], 12/21/2016 mammogram - [facility], 01/19/2016 mammogram, and 01/12/2016 mammogram - [facility]. The tissue of both breasts is heterogeneously dense. This may lower the sensitivity of mammography. Current study was also evaluated with a Computer Aided Detection (CAD) system. There are benign calcifications in both breasts. There also is a biopsy clip in the left breast. No significant masses, calcifications, or other findings are seen in either breast. There has been no significant interval change. IMPRESSION: BENIGN There is no mammographic evidence of malignancy. A 1 year screening mammogram is recommended. This exam was interpreted at Station ID: [id number]. NOTE: For mammograms, a report in lay terms will be sent to the patient. Approximately 15% of breast malignancies will not be visualized mammographically. In the management of a palpable breast mass, a negative mammogram must not discourage biopsy of a clinically suspicious lesion. Electronically Signed By: Kameron levy/arlette:06/03/2020 07:50:31 copy to: EILEEN POSEY letter sent: Normal Exam ACR BI-RADS Category 2: Benign Finding(s) 3342F
== END ==
PROVIDERS: PCP Family Medicine; Referring Provider Family Medicine; Visit Provider Family Medicine
DX: Z12.31 Encounter for screening mammogram for malignant neoplasm of breast (principal); Z80.3 Family history of malignant neoplasm of breast
CPT/HCPCS: 77063; 77067

== ENCOUNTER → 2021-02-26 10:31 | Outpatient (CLI) | payer OTHER, SELFPAY ==
[2021-02-26 11:52] LABS: Add Manual Diff / Slide Review NO; Basophils Absolute Auto 0 /uL (0-100); Basophils Percent Auto 0.9 % (0-2); Eosinophils Absolute Auto 200 /uL (0-450); Eosinophils Percent Auto 4.4 % (2-4); Hematocrit 43.2 % (36-46); Hemoglobin 14.8 g/dL (12.0-16.0); Lymphocytes Absolute Auto 1200 /uL (1100-4500); Mean Corpuscular HGB Conc 34.2 % (30-36); Mean Corpuscular Hemoglobin 29.5 PG (26-34); Mean Corpuscular Volume 86.2 fL (80-100); Monocytes Absolute Auto 300 /uL (0-900); Monocytes Percent Auto 8.1 % (3-14); Neutrophils Absolute Auto 2100 /uL (1500-7000); Neutrophils Percent Auto 54.6 % (50-75); Platelet Count 215 X10^3/uL (150-400); Red Blood Cell Count 5.02 X10^6/uL (4.0-5.2); Red Cell Distribution Width 13.4 % (11.6-14.8); White Blood Cell Count 3.8 X10^3/uL (4.5-11.0)
[2021-02-26 12:03] LABS: Alanine Aminotransferase 21 IU/L (<35); Albumin 4.4 g/dL (3.5-5.0); Albumin Globulin Ratio 1.6 (1.0-2.8); Alkaline Phosphatase 56 U/L (38-126); Aspartate Aminotransferase 41 IU/L (14-36); BUN Creatinine Ratio 18.1 (6-22); Bilirubin Total 0.6 mg/dL (0.2-1.3); Blood Urea Nitrogen 15 mg/dL (7-17); Calcium 10.1 mg/dL (8.4-10.2); Carbon Dioxide 34 mmol/L (22-32); Chloride 100 mmol/L (98-107); Cholesterol 206 mg/dL (140-199); Estimated Glomerular Filt Rate > 60.0 mL/min (>60); Globulin 2.7 g/dL (1.7-4.1); Glucose 94 mg/dL (80-110); HDL Cholesterol 55 mg/dL (40-60); HEMOLYSIS < 15 (0-50); LDL Cholesterol Calculated 127 mg/dL (<100); Sodium 141 mmol/L (137-145); Total Protein 7.1 g/dL (6.3-8.2); Triglycerides 118 mg/dL (35-150)
[2021-02-26 12:15] LABS: Potassium 3.3 mmol/L (3.4-5.1)
[2021-02-26 12:32] LABS: Thyroid Stimulating Hormone 2.56 uIU/mL (0.47-4.68)
[2021-02-28 09:04] LABS: Insulin Level Total 12.5 uIU/mL (2.6-24.9)
== END ==
PROVIDERS: PCP Naturopath; Referring Provider Naturopath; Visit Provider Naturopath
DX: Z00.00 Encounter for general adult medical examination without abnormal findings (principal); R94.5 Abnormal results of liver function studies; R53.83 Other fatigue
CPT/HCPCS: 36415; 80053; 80061; 83525; 84443; 85025

== ENCOUNTER → 2021-06-08 10:13 | Outpatient (CLI) | payer OTHER, SELFPAY ==
[2021-06-08 11:35] LABS: Add Manual Diff / Slide Review NO; Basophils Absolute Auto 0 /uL (0-100); Basophils Percent Auto 0.7 % (0-2); Eosinophils Absolute Auto 100 /uL (0-450); Eosinophils Percent Auto 2.7 % (2-4); Hematocrit 43.9 % (36-46); Hemoglobin 14.9 g/dL (12.0-16.0); Lymphocytes Absolute Auto 1500 /uL (1100-4500); Lymphocytes Percent Auto 35.7 % (25-40); Mean Corpuscular Hemoglobin 29.2 PG (26-34); Monocytes Absolute Auto 300 /uL (0-900); Monocytes Percent Auto 6.1 % (3-14); Neutrophils Absolute Auto 2400 /uL (1500-7000); Neutrophils Percent Auto 54.8 % (50-75); Platelet Count 201 X10^3/uL (150-400); Red Cell Distribution Width 13.6 % (11.6-14.8); White Blood Cell Count 4.3 X10^3/uL (4.5-11.0)
[2021-06-08 13:16] LABS: Free T3, Triiodothyronine Free 3.24 pg/mL (2.77-5.27); Free T4, Direct Thyroxine 1.15 ng/dL (0.78-2.19)
[2021-06-08 13:30] LABS: Thyroid Stimulating Hormone 2.48 uIU/mL (0.47-4.68)
[2021-06-09 10:51] LABS: Thyroid Peroxidase Antibodies <8 IU/mL (0-34)
== END ==
PROVIDERS: PCP Naturopath; Referring Provider Naturopath; Visit Provider Naturopath
DX: D72.818 Other decreased white blood cell count (principal); R53.83 Other fatigue
CPT/HCPCS: 36415; 84439; 84443; 84481; 85025; 86376

== ENCOUNTER → 2021-07-13 11:06 | Outpatient (CLI) | payer OTHER, SELFPAY ==
--- NOTE | 2021-07-13 11:07 | DI.RAD.S_ITS ---
PROCEDURE: XR KNEE LT 3V INDICATIONS: left knee pain TECHNIQUE: 3 views of the knee were acquired. COMPARISON: None. FINDINGS: Bones: No fractures or dislocations. No suspicious bony lesions. Mild osteoarthritic degenerative changes noted in all 3 compartments of the left knee. Soft tissues: No joint effusion. No suspicious soft tissue calcifications. IMPRESSION: Mild left knee tricompartmental osteoarthritis. Dictated by: Natalie Davey MD, PhD on 07/13/2021 at 14:54 Approved by: Natalie Davey MD, PhD on 07/13/2021 at 14:54
== END ==
PROVIDERS: PCP Naturopath; Referring Provider Family Medicine; Visit Provider Family Medicine
DX: M25.562 Pain in left knee (principal); M17.12 Unilateral primary osteoarthritis, left knee
CPT/HCPCS: 73562

== ENCOUNTER → 2021-09-28 15:05 | Outpatient (CLI) | payer OTHER, SELFPAY ==
--- NOTE | 2021-09-28 | DI.MG.S_ITS ---
BILATERAL DIGITAL SCREENING MAMMOGRAM 3D/2D WITH CAD: 09/28/2021 CLINICAL: Routine screening. Family history of breast cancer. Comparison is made to exams dated: 06/02/2020 mammogram, 07/25/2018 mammogram, 01/12/2016 mammogram - [facility], and 12/21/2016 mammogram - [facility]. The tissue of both breasts is heterogeneously dense. This may lower the sensitivity of mammography. Current study was also evaluated with a Computer Aided Detection (CAD) system. There are benign calcifications in both breasts. There also is a biopsy clip in the left breast. No significant masses, calcifications, or other findings are seen in either breast. There has been no significant interval change. IMPRESSION: BENIGN There is no mammographic evidence of malignancy. A 1 year screening mammogram is recommended. Based on Tyrer-Cuzick model (a risk assessment model), the patient's lifetime risk is 23.0% and her 10 year risk is 10.5%. If a patient has an elevated risk, a more comprehensive evaluation should be considered and/or a referral to a genetic counselor. The [place] [employer], [employer], and NCCN Guidelines advise the consideration of Breast MRI as an adjunct to screening mammography in patients whose Lifetime risk to develop breast cancer is 20% or higher. This exam was interpreted at Station ID: [id number]. NOTE: For mammograms, a report in lay terms will be sent to the patient. Approximately 15% of breast malignancies will not be visualized mammographically. In the management of a palpable breast mass, a negative mammogram must not discourage biopsy of a clinically suspicious lesion. Electronically Signed By: Jose Roberto sinclair/arlette:09/29/2021 08:36:19 copy to: EILEEN POSEY letter sent: Normal Exam ACR BI-RADS Category 2: Benign Finding(s) 3342F
== END ==
PROVIDERS: PCP Family Medicine; Referring Provider Naturopath; Visit Provider Naturopath
DX: Z12.31 Encounter for screening mammogram for malignant neoplasm of breast (principal); Z80.3 Family history of malignant neoplasm of breast
CPT/HCPCS: 77063; 77067

== ENCOUNTER → 2021-10-13 11:45 | Outpatient (CLI) | payer OTHER, SELFPAY ==
[2021-10-13 12:48] LABS: COVID19 -Nasal RAPID Negative (Negative)
== END ==
PROVIDERS: PCP Family Medicine; Visit Provider Surgery
DX: Z01.812 Encounter for preprocedural laboratory examination (principal); Z20.822 Contact with and (suspected) exposure to COVID-19
CPT/HCPCS: 87635; C9803

== ENCOUNTER 2021-10-14 11:29 | Day surgery (SDC) | payer OTHER, SELFPAY ==
[2021-10-14 12:04] VITALS: BP 131/83; PULSE 77; RESP 16; TEMP 36.6; O2SAT 97
[2021-10-14 12:13] VITALS: BP 131/83; TEMP 36.6
[2021-10-14] MEDS: LACTATED RINGERS 1,000 ML 200 ML IV (12:22)
--- NOTE | 2021-10-14 13:02 | PM.HP.1 ---
History of Present Illness History of Present Illness Date Patient Seen: 10/14/21 Time Patient Seen: 13:02 Chief complaint: SDC Narrative: The patient presents for colorectal screening. Most recent colonoscopy 7 years ago demonstrated benign polyps. No personal or family history of colon cancer. On further history denies any recent gastrointestinal symptoms. No nausea, vomiting, abdominal pain, loss of appetite, unexplained weight loss, change in bowel habits, diarrhea, or melena. She does have hemorrhoids and has had a few episodes painless bright red blood per rectum which she attributes to this. Patient History Medical History Colon polyps (~2011) Eczema Headache Hemorrhoid Herpes (~1981) Hx of renal calculi (~2009) Measles (~1965) Osteopenia (~2006) Osteoporosis (~2018) Wears glasses Surgical History Anesthesia History of lithotripsy Family & Social History Family History Father Prostate cancer Diabetes mellitus Mother Atrial fibrillation Cancer Dupuytren's contracture Brother History of heart transplant Diabetes mellitus Brother Dupuytren's contracture Grandfather History of heart disease Grandmother Stroke Grandfather Cancer Social History: household members spouse Tobacco & Substance use: Smoking Status Never smoker alcohol intake frequency a few times a month Substance Use Type does not use Meds Home Medications and Allergies Home Medications Medication Instructions Recorded Confirmed Type cholecalciferol (vitamin D3) 125 5,000 unit PO DAILY 07/27/18 10/14/21 History mcg (5,000 unit) capsule hydrochlorothiazide 12.5 mg tablet 25 mg PO DAILY 07/27/18 10/14/21 History melatonin 3 mg tablet 3 mg PO BEDTIME PRN Sleep 07/27/18 10/14/21 History omega-3 fatty acids [Fish Oil 1 tab PO DAILY 07/27/18 10/14/21 History Concentrate] coenzyme Q10 10 mg capsule (Co 10 mg PO ONCE 12/10/19 10/14/21 History Q-10) multivitamin with minerals 1 tab PO DAILY 12/10/19 10/14/21 History (Hair,Skin and Nails tablet) potassium citrate 10 mEq (1,080 10 meq PO DAILY 12/10/19 10/14/21 History mg) tablet,extended release triamcinolone acetonide 0.1 % 1 applictn topical BID #15 grams 12/10/19 10/14/21 Rx topical ointment sodium,potassium,mag sulfates 17.5 See Rx Instructions PO .COMPLEX 09/15/21 10/14/21 Rx gram-3.13 gram-1.6 gram oral soln #354 mL (Suprep Bowel Prep Kit) Allergies Allergy/AdvReac Type Severity Reaction Status Date / Time Penicillins [PENICILLINS] Allergy Unknown Unverified 10/04/21 13:33 Exam Vital Signs (past 8 hours): - 10/14/21 12:04 10/14/21 12:13 Temperature 97.9 F 97.9 F Pulse Rate 77 Respiratory Rate 16 Blood Pressure 131/83 131/83 Pulse Oximetry 97 Oxygen Delivery Method Room Air Oxygen Delivery Method Room Air Narrative Exam Narrative: General adult woman alert oriented no acute distress Chest nonlabored respiration Abdomen soft nontender nondistended Assessment & Plan Assessment & Plan narrative: The patient requires colorectal screening and colonoscopy is recommended. Technical details were discussed. Risks, benefits, alternatives explained. Risks including but not limited to myocardial infarction, aspiration, bleeding, pain, missed lesion, incomplete examination, need for further radiographic studies, colonic perforation, and need for major abdominal surgery were discussed. All questions were answered to their satisfaction, and they are in agreement with this plan. Time Spent With Patient Critical Care time: I spent a total of [] minutes of critical care time on this patient's care today; this time is exclusive of procedural time.
[2021-10-14] MEDS: MIDAZOLAM 5 MG/5 ML VIAL IV (13:14)
[2021-10-14] MEDS: fentaNYL 250 MCG/5 ML INJ 150 MCG IV (13:14)
--- NOTE | 2021-10-14 13:26 | P.OP.COLON_ITS ---
Operative Date/Time/Diagnoses Date of procedure: 10/14/21 Time of procedure: 13:26 Pre-op diagnosis: Screening Post-op diagnosis: same Procedure & Clinicians Study performed: Colonoscopy Same procedure as scheduled: Yes Indications: Screening Surgeon: Ethan Bolanos Procedure Notes Procedure in detail: Medications: Conscious sedation using 5 mg IV midazolam and 150mcg IV of fentanyl The history and physical was performed/updated and the patient is ASA class is 2. The procedure was discussed in detail with the patient. Potential risks complications including infection, bleeding, missed diagnosis, perforation, need for surgery, and were explained. Their questions were answered and informed consent was obtained. Patient was brought to the procedure room and placed standard monitoring equipment. The patient's vital signs were monitored continuously throughout the entire procedure. Prior to starting time-out was performed. The patient was placed in the left lateral recumbent position. Procedural sedation was administ ered. Examination began with a thorough inspection of the perianal area there was no evidence of fissures, fistulae, external hemorrhoids or cutaneous malignancy. The colonoscopy scope was then placed into the anal canal and was advanced to the cecum, which was identified by the ileocecal valve, the appendiceal orifice and the confluence of the taenia. The scope was then slowly withdrawn examining colon thoroughly in all directions, irrigating it of any residual stool. FINDINGS 1. No masses polyps or inflammation 2. Internal hemorrhoids-mild The patient tolerated the procedure well. They will be discharged once criteria are met. The prep was of good/excellent quality. The withdrawl time was 6minutes. The sedation time was 17 minutes. Specimen(s): none sent Complications: none Impression: Normal colonoscopy Post-procedure Recommendations: Colonoscopy in 10 years and High fiber diet Disposition: same day surgery
[2021-10-14 13:30] VITALS: BP 119/76; PULSE 75; RESP 14; TEMP 35.7; O2SAT 98
[2021-10-14 13:35] VITALS: BP 114/71; PULSE 71; RESP 13; O2SAT 95
[2021-10-14 13:50] VITALS: BP 110/70; PULSE 80; RESP 16; TEMP 36.3; O2SAT 98
== END 2021-10-14 14:01 | disposition home or self-care (01) ==
PROVIDERS: PCP Family Medicine; Referring Provider Surgery; Visit Provider Surgery
PROC: 0DJD8ZZ Inspection of Lower Intestinal Tract, Via Natural or Artificial Opening Endoscopic (ICD-10-PCS; CPT 45378; principal; 2021-10-14 13:30)
DX: Z12.11 Encounter for screening for malignant neoplasm of colon (principal); K64.8 Other hemorrhoids; Z86.010 Personal history of colon polyps
CPT/HCPCS: G0105; 99152; J2250; J3010

== ENCOUNTER → 2022-02-14 11:02 | Outpatient (CLI) | payer OTHER, SELFPAY ==
[2022-02-14 11:55] LABS: Add Manual Diff / Slide Review NO; Basophils Absolute Auto 0 /uL (0-100); Basophils Percent Auto 0.8 % (0-2); Eosinophils Absolute Auto 100 /uL (0-450); Eosinophils Percent Auto 2.2 % (2-4); Hematocrit 41.9 % (36-46); Hemoglobin 14.5 g/dL (12.0-16.0); Lymphocytes Absolute Auto 1100 /uL (1100-4500); Lymphocytes Percent Auto 30.5 % (25-40); Mean Corpuscular HGB Conc 34.6 % (30-36); Mean Corpuscular Hemoglobin 29.8 PG (26-34); Monocytes Absolute Auto 300 /uL (0-900); Monocytes Percent Auto 8.5 % (3-14); Neutrophils Absolute Auto 2000 /uL (1500-7000); Platelet Count 188 X10^3/uL (150-400); Red Blood Cell Count 4.88 X10^6/uL (4.0-5.2); Red Cell Distribution Width 13.4 % (11.6-14.8); White Blood Cell Count 3.5 X10^3/uL (4.5-11.0)
[2022-02-14 12:16] LABS: Alanine Aminotransferase 25 IU/L (<35); Albumin 4.3 g/dL (3.5-5.0); Albumin Globulin Ratio 1.4 (1.0-2.8); Alkaline Phosphatase 68 U/L (38-126); Aspartate Aminotransferase 41 IU/L (14-36); BUN Creatinine Ratio 15.9 (6-22); Bilirubin Total 0.6 mg/dL (0.2-1.3); Blood Urea Nitrogen 14 mg/dL (7-17); Calcium 9.7 mg/dL (8.4-10.2); Carbon Dioxide 30 mmol/L (22-32); Chloride 101 mmol/L (98-107); Cholesterol 214 mg/dL (140-199); Estimated Glomerular Filt Rate > 60 mL/min (>60); Glucose 91 mg/dL (80-110); HDL Cholesterol 48 mg/dL (40-60); HEMOLYSIS < 15 (0-50); LDL Cholesterol Calculated 149 mg/dL (<100); Potassium 3.5 mmol/L (3.4-5.1); Sodium 139 mmol/L (137-145); Total Protein 7.3 g/dL (6.3-8.2); Triglycerides 87 mg/dL (35-150)
== END ==
PROVIDERS: PCP Family Medicine; Referring Provider Naturopath; Visit Provider Naturopath
DX: Z00.00 Encounter for general adult medical examination without abnormal findings (principal); L30.9 Dermatitis, unspecified; M81.0 Age-related osteoporosis without current pathological fracture; Z13.220 Encounter for screening for lipoid disorders
CPT/HCPCS: 36415; 80053; 80061; 85025

== ENCOUNTER → 2022-08-09 09:19 | Outpatient (CLI) | payer OTHER, SELFPAY ==
[2022-08-09 10:23] LABS: Add Manual Diff / Slide Review NO; Basophils Absolute Auto 0 /uL (0-100); Basophils Percent Auto 0.8 % (0-2); Eosinophils Absolute Auto 100 /uL (0-450); Eosinophils Percent Auto 2.9 % (2-4); Hematocrit 41.2 % (36-46); Lymphocytes Absolute Auto 1400 /uL (1100-4500); Lymphocytes Percent Auto 31.7 % (25-40); Mean Corpuscular HGB Conc 33.9 % (30-36); Mean Corpuscular Hemoglobin 29.2 PG (26-34); Mean Corpuscular Volume 86.1 fL (80-100); Monocytes Absolute Auto 300 /uL (0-900); Monocytes Percent Auto 7.7 % (3-14); Neutrophils Absolute Auto 2500 /uL (1500-7000); Neutrophils Percent Auto 56.9 % (50-75); Platelet Count 210 X10^3/uL (150-400); Red Blood Cell Count 4.78 X10^6/uL (4.0-5.2); Red Cell Distribution Width 13.4 % (11.6-14.8); White Blood Cell Count 4.4 X10^3/uL (4.5-11.0)
== END ==
PROVIDERS: PCP Family Medicine; Referring Provider Naturopath; Visit Provider Naturopath
DX: D72.818 Other decreased white blood cell count (principal)
CPT/HCPCS: 36415; 85025

== ENCOUNTER → 2022-09-05 15:13 | Outpatient (CLI) | payer OTHER, SELFPAY ==
--- NOTE | 2022-09-05 | DI.US.S_ITS ---
PROCEDURE: US RENAL COMPLETE INDICATIONS: CALCULUS OF KIDNEY TECHNIQUE: Real-time scanning was performed of the kidneys and bladder, with image documentation. COMPARISON: [facility], , US RENAL COMPLETE, 04/23/2018, 13:42. FINDINGS: Kidneys: Kidneys are normal in size. Right kidney measures 10.1 cm long; left kidney measures 10.8 cm long. Right renal cortical thickness is 1.8 cm; left renal cortical thickness is 2.3 cm. Renal cortical echotexture is normal. Moderate left-sided hydronephrosis In the left kidney, several echogenic foci which posterior shadowing noted, largest measures 3 mm No suspicious solid mass lesions. Bladder: Pre-void bladder volume is 264 mL. Post-void residual is 11 mL. Pre-void images demonstrate no intraluminal masses or stones. On pre-void images, bilateral ureteral jets are noted with color Doppler interrogation. (Of note, ureteral jets may not be detectable in up to 25% of cases due to insufficient differences in specific gravity between ureteral and bladder urine). Miscellaneous: No free pelvic fluid. IMPRESSION: Moderate left hydronephrosis 3 mm nonobstructing left renal calculi Approved by: Bc Bailey M.D. on 09/06/2022 at 17:09
== END ==
PROVIDERS: PCP Family Medicine; Referring Provider Physician Assistant Medical; Visit Provider Physician Assistant Medical
DX: N13.30 Unspecified hydronephrosis (principal); N20.0 Calculus of kidney
CPT/HCPCS: 76770

== ENCOUNTER → 2023-05-06 12:43 | Outpatient (CLI) | payer OTHER, SELFPAY ==
--- NOTE | 2023-05-06 12:44 | DI.MG.S_ITS ---
BILATERAL DIGITAL SCREENING MAMMOGRAM 3D/2D WITH CAD: 05/06/2023 CLINICAL: Routine screening. Family history of breast cancer. Comparison is made to exams dated: 09/28/2021 mammogram, 06/02/2020 mammogram, and 07/25/2018 mammogram - . Both breasts are heterogeneously dense, which may obscure small masses (category c / 51-75% glandular tissue). Current study was also evaluated with a Computer Aided Detection (CAD) system. There are benign calcifications in both breasts. There also is a biopsy clip in the left breast. No significant masses, calcifications, or other findings are seen in either breast. There has been no significant interval change. IMPRESSION: BENIGN There is no mammographic evidence of malignancy. A 1 year screening mammogram is recommended. Based on Tyrer-Cuzick model (a risk assessment model), the patient's lifetime risk is 21.7% and her 10 year risk is 10.5%. If a patient has an elevated risk, a more comprehensive evaluation should be considered and/or a referral to a genetic counselor. The [place], [employer], and NCCN Guidelines advise the consideration of Breast MRI as an adjunct to screening mammography in patients whose Lifetime risk to develop breast cancer is 20% or higher. This exam was interpreted at Station ID: [id number]. NOTE: For mammograms, a report in lay terms will be sent to the patient. Approximately 15% of breast malignancies will not be visualized mammographically. In the management of a palpable breast mass, a negative mammogram must not discourage biopsy of a clinically suspicious lesion. Electronically Signed By: Fransico lacy/arlette:05/08/2023 07:36:52 copy to: EILEEN POSEY letter sent: Normal Exam ACR BI-RADS Category 2: Benign Finding(s) 3342F
== END ==
LOC: MAMMO 12:43
PROVIDERS: PCP Family Medicine; Referring Provider Family Medicine; Visit Provider Family Medicine
DX: Z12.31 Encounter for screening mammogram for malignant neoplasm of breast (principal); Z80.3 Family history of malignant neoplasm of breast; R92.333 Mammographic heterogeneous density, bilateral breasts
CPT/HCPCS: 77063; 77067

== ENCOUNTER → 2024-01-04 15:49 | Outpatient (CLI) | payer MEDICARE, OTHER, SELFPAY ==
--- NOTE | 2024-01-04 15:54 | DI.US.S_ITS ---
PROCEDURE: US RENAL COMPLETE INDICATIONS: LEFT KIDNEY STONE TECHNIQUE: Real-time scanning was performed of the kidneys and bladder, with image documentation. COMPARISON: [facility], CT, CT ABDOMEN PELVIS WO/W CON, 02/18/2019, 14:19. [facility], US, US RENAL COMPLETE, 09/05/2022, 15:23. FINDINGS: Kidneys: Kidneys are normal in size. Right kidney measures 9.9 cm long; left kidney measures 11.3 cm long. Right renal cortical thickness is 1.2 cm; left renal cortical thickness is 1.2 cm. Renal cortical echotexture is normal. No suspicious solid mass lesions. On the right, there is trace hydronephrosis versus pelviectasis. On the left, there is moderate hydronephrosis, with a dilated proximal left ureter. Two stones are seen within the proximal ureter, which do not appear to be obstructing. There is a nonobstructing right-sided kidney stone, 4 mm. Nonobstructing left-sided kidney stones are seen, measuring up to 4 mm. Bladder: Pre-void bladder volume is 161 mL. Post-void residual is 8 mL. Pre-void images demonstrate no intraluminal masses or stones. On pre-void images, both ureteral jets are noted with color Doppler interrogation. (Of note, ureteral jets may not be detectable in up to 25% of cases due to insufficient differences in specific gravity between ureteral and bladder urine). Miscellaneous: No free pelvic fluid. IMPRESSION: Moderate left-sided hydronephrosis can again be seen, with nonobstructing stones seen within the dilated proximal left ureter. Bilateral nonobstructing kidney stones are seen. Trace postvoid residual, 8 cc. Dictated by: Gumaro Del Angel M.D. on 01/04/2024 at 17:48 Approved by: Gumaro Del Angel M.D. on 01/04/2024 at 17:52
== END ==
PROVIDERS: PCP Family Medicine; Referring Provider Physician Assistant Medical; Visit Provider Physician Assistant Medical
DX: N13.30 Unspecified hydronephrosis (principal); N20.0 Calculus of kidney
CPT/HCPCS: 76770

== ENCOUNTER → 2024-03-14 15:06 | Outpatient (CLI) | payer MEDICARE, OTHER, SELFPAY ==
--- NOTE | 2024-03-14 15:07 | DI.MRI.S_ITS ---
PROCEDURE: MR KNEE LT WO CON INDICATIONS: bilateral primary osteoarthritis of knee (left) TECHNIQUE: Noncontrast sagittal PD fast spin echo and T2 fast spin echo with fat saturation, sagittal 3-D FLASH with fat saturation; coronal T1 spin echo and PD fast spin echo with fat saturation, and axial PD fast spin echo with fat saturation through the knee. COMPARISON: [facility] [place], CR, XR KNEE ARTHRITIC SERIES BI, 01/04/2024, 14:47. FINDINGS: Image quality: Excellent. Bones: Re-identified 0.9 x 1.3 x 2.0 cm ovoid, well-defined metaphyseal lesion in the distal femur along the medial intercondylar notch (5/11) with internal chondroid matrix and mild endosteal scalloping (/10). No periosteal reaction or extraosseous soft tissue extension. Mild marrow edema is present at the periphery of the medial tibial plateau (01/13). There is a small subchondral cyst at the posterior-central tibial plateau (01/16). The bone marrow signal is otherwise normal. There is no acute fracture or dislocation. Joints: There is a small knee joint effusion. There is mild knee osteoarthritis, predominantly in the medial compartment. Milton's cyst: Moderate Milton's cyst measuring 11 cm in maximal dimension (01/24). No perifascial edema. Menisci: There is a complex tear of the body and posterior horn of the medial meniscus with extension toward the posterior root attachment and 4 mm of meniscal body extrusion into the medial gutter (01/10-). There is a complex tear of the posterior horn of the lateral meniscus which extends toward the posterior root attachment (01/16). There is no lateral meniscal body extrusion. Cruciate ligaments: The anterior cruciate ligament is normal. The posterior cruciate ligament is normal. Collateral ligaments: There is a high-grade partial-thickness tear of the tibial collateral ligament at the femoral attachment site (01/14) with mild periligamentous edema. The lateral collateral ligament complex is normal. Popliteus Muscle/Tendon: The popliteus muscle and tendon are normal. Extensor mechanism: There is mild intermediate signal and thickening of the quadriceps tendon. The patellar tendon is normal. The medial and lateral patellar retinacular attachments are normal. Articular cartilage: Partial thickness chondral loss is present at the lateral patellofemoral compartment (5/14). Multifocal areas of near full thickness chondral loss are present throughout the central and posterior medial compartment (10/20), as well as the nonweightbearing femoral condyles (7/24; 7/9). Partial-thickness chondral loss is present at the posterior-central lateral compartment (10/22). Other: No other acute findings. IMPRESSION: 1. Complex tear of the body and posterior horn of the medial meniscus with 4 mm of meniscal body extrusion. 2. Complex tear of the posterior horn of the lateral meniscus. 3. High-grade partial thickness tear of the tibial collateral ligament at the femoral attachment site. 4. Distal femoral 2.0 cm lesion, likely representing a low-grade chondromatous lesion such as an enchondroma. 5. Mild knee osteoarthritis with small joint effusion, associated marrow edema/subchondral cyst formation, and articular cartilage defects. 6. Moderate Milton's cyst without evidence of leakage. 7. Mild quadriceps tendinosis. Dictated by: Daniel Carrillo M.D. on 03/15/2024 at 16:57 Approved by: Daniel Carrillo M.D. on 03/15/2024 at 17:12
== END ==
LOC: MRI 15:06
PROVIDERS: Family Provider Family Medicine; PCP Family Medicine; Referring Provider Orthopaedic Surgery Adult Reconstructive Orthopaedic Surgery; Visit Provider Orthopaedic Surgery Adult Reconstructive Orthopaedic Surgery
DX: S83.232A Complex tear of medial meniscus, current injury, left knee, initial encounter (principal); S83.271A Complex tear of lateral meniscus, current injury, right knee, initial encounter; M71.22 Synovial cyst of popliteal space [Baker], left knee; M17.0 Bilateral primary osteoarthritis of knee; M25.462 Effusion, left knee; S83.412A Sprain of medial collateral ligament of left knee, initial encounter; M89.9 Disorder of bone, unspecified
CPT/HCPCS: 73721

== ENCOUNTER 2024-04-09 14:30 | Outpatient (RCR) | payer MEDICARE, OTHER, SELFPAY ==
--- NOTE | 2024-01-11 13:44 | PT.OIE ---
Current Diagnoses Pain in right knee (01/11/24) Pain in left knee (01/11/24) Soft tissue disorder, unspecified (01/11/24) Difficulty in walking, not elsewhere classified (01/11/24) Weakness (01/11/24) Past Medical History (Last Reviewed 10/14/21 @ 13:03 by Ethan Bolanos MD) Colon polyps (~2011) Eczema Headache Hemorrhoid Herpes (~1981) Hx of renal calculi (~2009) Measles (~1965) Osteopenia (~2006) Osteoporosis (~2019) Wears glasses Past Surgical History (Last Reviewed 10/14/21 @ 13:03 by Ethan Bolanos MD) Anesthesia History of lithotripsy Visit Care Team Role Provider Type Kiley Boles MD Family Provider Physician Primary Care Provider Specialty: Family Practice Address: [address] [place] [address], [id number] Email: [email or web address] Bc Barker MD Attending Provider Physician Referring Provider Specialty: Orthopedics Orthopedic Surgery Address: [address] [place] [address], [id number] Email: [email or web address] Physical Therapy Initial Evaluation PT-OP-A Visit Information Start: 01/10/24 15:52 Freq: Status: Active Protocol: Document 01/11/24 13:44 [facility] (Rec: 01/11/24 14:40 [facility] [id number]) Out-Patient Physical Therapy Visit Information Visit Information Visit Type Initial Evaluation Visit Start Time 13:44 Visit Stop Time 15:35 Visit Number 1 Number of INSTRUMENT TECHNOLOGIST Visits 0 Evaluation Information Evaluation Date 01/11/24 PT-OP-B Current Condition Start: 01/10/24 15:52 Freq: Status: Active Protocol: Document 01/11/24 13:44 [facility]AK (Rec: 01/11/24 14:40 [facility] [id number]) Current Condition History of Current Condition Onset Date August 2023 Current Complaints kathryn knee pain left greater than right History of Current Condition 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 30 years ago hurt left knee skiing downhill , wasn't treated. Now walks [address] at [place] 1 day per week 3 1/2 miles, other days walking downhill to [facility], then uphill. In August of this year was late to meet and decided to run, and it was downhill, has not felt well since then. Most recently hiking her left knee feels unstable. Now pain starts bottom of kneecap, moves around often to top of kneecap. Not able to take long walks right now due to pain and instabilityStates squatting causes the worst pain. Neighbor who is a PT gave her 45 degree wall squats and short arc quads. States she is horribly bad at stretching. Has history of plantar fascitis Prior Treatments and Tests x-rays; medial compartment Future Testing and Treatments Planned none at this time Treatment Goals Patient/Caregiver Goals minimize pain, and be able to return to walking 3 1/2 miles per day and all other distances without difficulty Current Functional Impairments (Reported) Functional Limitations- ADL's painful Functional Limitations- Mobility/Gait limited distances, feeling of instability PT-OP-C Subjective Start: 01/10/24 15:52 Freq: Status: Active Protocol: Document 01/11/24 13:44 [facility] (Rec: 01/15/24 11:08 [facility] [id number]) OP-PT Pain Assessment Location kathryn knees Intensity 6 Description Aching,Tender,Tightness Frequency Frequent Pain Aggravating Factors Activity Pain Alleviating Factors Inactivity Home Pain Medication Use Pain Medications Used Yes Pain Behaviors Pain Behaviors Facial Grimacing,Guarding, Wincing PT-OP-D Balance Start: 01/10/24 15:52 Freq: Status: Active Protocol: Document 01/11/24 13:44 [facility] (Rec: 01/15/24 11:08 [facility] [id number]) OP-PT Balance Assessment Sitting Balance Static Sitting Balance Ability Normal Dynamic Sitting Balance Ability Normal Standing Balance Static Standing Balance Ability Normal Dynamic Standing Balance Ability Normal Michel Fall Scale Copyright Permission PT-OP-G Mobility & Gait Start: 01/10/24 15:52 Freq: Status: Active Protocol: Document 01/11/24 13:44 [facility] (Rec: 01/15/24 11:08 [facility] [id number]) OP Gait Assessment Gait Gait Assistance Required: Independent Able to Maintain Weight Bearing Status Yes During Gait Assistive Devices Assistive Device None Gait Deviations General Gait Pattern Antalgic Factors Limiting Gait Function Factors Limiting Gait Function Pain Comments Gait Comments swelling Stair Climbing Evaluation Evaluation Level of Assist On Stairs Independent Devices Stair Climbing Assistive Devices Left Railing,Right Railing Technique/Endurance Stair Climbing Direction Ascend and Descend Stair Climbing Technique Step to Step PT-OP-H Neuro Start: 01/10/24 15:52 Freq: Status: Active Protocol: Document 01/11/24 13:44 [facility] (Rec: 01/15/24 11:08 [facility] [id number]) Sensation Evaluation Gross Sensation Gross Sensation WNL PT-OP-J Posture/Palpation/Skin Start: 01/10/24 15:52 Freq: Status: Active Protocol: Document 01/11/24 13:44 [facility] (Rec: 01/15/24 11:08 [facility] [id number]) Posture Evaluation Position Standing Pelvis Posture Anteriorly Tilted Knee Posture (L) Genu Valgus,(R) Genu Valgus Patellar Posture (L) Laterally Tilted,(R) Laterally Tilted Ankle/Foot Posture (L) Pronated Foot Arch (L) Low Arch PT-OP-K Range of Motion Start: 01/10/24 15:52 Freq: Status: Active Protocol: Document 01/11/24 13:44 [facility] (Rec: 01/15/24 11:08 [facility] [id number]) Knee Goniometric Range of Motion Knee Left Flexion Active (degrees) 110 Extension Active (degrees) 5 Right Knee ROM WFL Yes Knee ROM Limitations Knee ROM Limitations Pain,Swelling Ankle and Foot Goniometric Range of Motion Ankle and Foot kathryn Dorsiflexion with Knee Flexed 5 Dorsiflexion with Knee Extended 0 Ankle and Foot ROM Limitations ROM Limitations Soft Tissue Tightness PT-OP-L Special Tests Start: 01/10/24 15:52 Freq: Status: Active Protocol: Document 01/11/24 13:44 [facility] (Rec: 01/15/24 11:08 [facility] [id number]) Special Tests Knee Special Tests Patellar Grind Test Test Results positive kathryn Valgus- 25 Degrees Test Results + laxity left vs right Anterior Draw Test Results + laxity left vs right PT-OP-M Strength Start: 01/10/24 15:52 Freq: Status: Active Protocol: Document 01/11/24 13:44 [facility] (Rec: 01/15/24 11:08 [facility] [id number]) Hip Strength Hip Manual Muscle Testing kathryn Flexion (L2) 4 Good Extension (S1) 4 Good Abduction 4 Good Adduction 4 Good External Rotation 4 Good Internal Rotation 4 Good Knee Strength Knee Manual Muscle Testing Left Flexion (S2) 4- Good- Extension (L3) 4- Good- Right Flexion (S2) 4+ Good+ Extension (L3) 4+ Good+ Ankle/Foot Strength Ankle and Foot Manual Muscle Testing Right Dorsiflexion (L4) 4+ Good+ Plantarflexion (S1) 4+ Good+ Left Dorsiflexion (L4) 4 Good Plantarflexion (S1) 4- Good- PT-OP-Q Treatments Start: 01/10/24 15:52 Freq: Status: Active Protocol: Document 01/11/24 13:44 [facility] (Rec: 01/15/24 11:08 [facility] [id number]) Manual Therapy Treatment Consent Patient gave verbal consent for manual Yes treatment Taping left knee Treatment Focus patellar positioning, edema reduction Type of Tape Kinesio Tape Comments 1 Y strip base medial left knee , with tails sup and inf patella crossed lateral to patella to facil medial glide 75% stretch 2 fan strips for edema reduction left knee paper off tension Self-Care/Home Management Treatment Education Patient Education Home Exercise Program,Pain Management Other Education edema reduction PT-OP-R Modalities Start: 01/10/24 15:52 Freq: Status: Active Protocol: Document 01/11/24 13:44 [facility] (Rec: 01/15/24 11:08 [facility] [id number]) Hot Pack/Cold Pack Treatment Cold Pack Location kathryn knees Patient Position Hooklying Patient Tolerance Good Comments legs elevated. PT-OP-T Assessment and Plan Start: 01/10/24 15:52 Freq: Status: Active Protocol: Document 01/11/24 13:44 [facility] (Rec: 01/11/24 14:40 [facility] [id number]) Physical Therapy Assessment Rehab Potential Rehabilitation Potential Good Evaluation Complexity Number of Personal Factors/Comorbidities 1-2 Number of Body Systems Impaired 3 Clinical Presentation at Evaluation Evolving Impairments Impairments Activity Tolerance,Edema,Pain, ROM,Strength Goals Four Impairment strength and flexibility impairments LE's left greater than right Short Term Goal (STG) Patient to be instructed in HEP for purposes of LE strengthening and flexibility STG Duration 02/11/24 Penitentiary Goal (LTG) Patient to be independent and compliant with HEP and demonstrate flexiblity WNL and strength 5/5 kathryn LE's to allow her to return to prior level of functio LTG Duration 03/12/24 Three Impairment swelling left knee Patcher Bowling Ball Goal (LTG) decrease swelling left knee to within 1 cm circumferential measurement as compared to right to promote improved right knee function LTG Duration 03/12/24 Two Impairment LEFS (lower extremity functional scale) 76% Short Term Goal (STG) Improve LEFS to at least 85% as measure of improved knee function and activity tolerance STG Duration 02/11/24 Penitentiary Goal (LTG) Improve LEFS to at least 90% as measure of improved knee function and activity tolerance LTG Duration 03/12/24 One Impairment knee pain left greater than right as high as 7/10 Short Term Goal (STG) Decrease pain to no greater than 4/10 with all usual activities STG Duration 02/11/24 Penitentiary Goal (LTG) Decrease pain to no greater than 2/10 with all usual activities including walking on level surfaces and uneven surfaces moving from sit to stand LTG Duration 03/12/24 Assessment Summary Assessment Patient presents to PT with function-limiting pain bilateral knees left greater than right with significant swelling left knee, but no redness, numbness, or tingling . x-rays 2 1/2 years ago showed mild left knee tricompartmental arthritis. Patient reports recent x-ray showed mostly arthritis on the inside of her knee. Patient reports worst pain with moving from sit to stand, squatting, kneeling, walking on incline. Evaluation reveals excess pronation left foot, genu valgus left, swelling left knee bao sup and infrapatellar, ligamentous laxity left knee, weakness in ankle platarflexion, knee flexion, and hip extension, exess lateral patellar positioning and glide kathryn left greater than right . Feel she would benefit from physical therapy to decrease her pain and swelling, improve her strength and flexibility and help return her to her prior level of function which included walking up to 4 miles per day without pain. Physical Therapy Plan Frequency and Duration Frequency of Treatment 2x/Week Duration of treatment (weeks) 8 Plan of Care Start Date 01/11/24 Plan of Care End Date 03/12/24 Therapeutic Interventions Therapeutic Interventions Gait Training,Home Exercise Program,Manual Therapy, Neuromuscular Re-education, Patient/Caregiver Education, Self-Care/Home Management,Soft Tissue Mobilization,Taping, Therapeutic Activities, Therapeutic Exercises Modalities Cold Pack/Ice Massage,Electric Stimulation,Hot Packs, Ultrasound Next Visit Focus/Plan Next Note Type Treatment Note Next Visit Plan ASsess response to KT tape and HEP. Trial shuttle leg press , closed chain strengthening as tolerated. gastroc stretching. Continue and/or modify KT tape as indicated.
--- NOTE | 2024-01-11 13:44 | PT.OPPOC ---
Physical, Occupational & Speech Therapy At [facility] Current Diagnoses Pain in right knee (01/11/24) Pain in left knee (01/11/24) Soft tissue disorder, unspecified (01/11/24) Difficulty in walking, not elsewhere classified (01/11/24) Weakness (01/11/24) Visit Care Team Role Provider Type Kiley Boles MD Family Provider Physician Primary Care Provider Specialty: Family Practice Address: [address] [place] [address], [facility] [place], [address] Email: [email or web address] Bc Barker MD Attending Provider Physician Referring Provider Specialty: Orthopedics Orthopedic Surgery Address: [address] [place] [address], [id number] Email: [email or web address] Plan Of Care PT-OP-B Current Condition Start: 01/10/24 15:52 Freq: Status: Active Protocol: Document 01/11/24 13:44 [facility] (Rec: 01/11/24 14:40 [facility] [id number]) Current Condition History of Current Condition Onset Date August 2023 Current Complaints kathryn knee pain left greater than right History of Current Condition 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 30 years ago hurt left knee skiing downhill , wasn't treated. Now walks [address] at [place] 1 day per week 3 1/2 miles, other days walking downhill to [facility], then uphill. In August of this year was late to meet and decided to run, and it was downhill, has not felt well since then. Most recently hiking her left knee feels unstable. Now pain starts bottom of kneecap, moves around often to top of kneecap. Not able to take long walks right now due to pain and instabilityStates squatting causes the worst pain. Neighbor who is a PT gave her 45 degree wall squats and short arc quads. States she is horribly bad at stretching. Has history of plantar fascitis Prior Treatments and Tests x-rays; medial compartment Future Testing and Treatments Planned none at this time Treatment Goals Patient/Caregiver Goals minimize pain, and be able to return to walking 3 1/2 miles per day and all other distances without difficulty Current Functional Impairments (Reported) Functional Limitations- ADL's painful Functional Limitations- Mobility/Gait limited distances, feeling of instability PT-OP-T Assessment and Plan Start: 01/10/24 15:52 Freq: Status: Active Protocol: Document 01/11/24 13:44 [facility] (Rec: 01/11/24 14:40 [facility] [id number]) Physical Therapy Assessment Rehab Potential Rehabilitation Potential Good Evaluation Complexity Number of Personal Factors/Comorbidities 1-2 Number of Body Systems Impaired 3 Clinical Presentation at Evaluation Evolving Impairments Impairments Activity Tolerance,Edema,Pain, ROM,Strength Goals Four Impairment strength and flexibility impairments LE's left greater than right Short Term Goal (STG) Patient to be instructed in HEP for purposes of LE strengthening and flexibility STG Duration 02/11/24 Prosthetic Lab Technician Goal (LTG) Patient to be independent and compliant with HEP and demonstrate flexiblity WNL and strength 5/5 kathryn LE's to allow her to return to prior level of functio LTG Duration 03/12/24 Three Impairment swelling left knee Prosthetic Lab Technician Goal (LTG) decrease swelling left knee to within 1 cm circumferential measurement as compared to right to promote improved right knee function LTG Duration 03/12/24 Two Impairment LEFS (lower extremity functional scale) 76% Short Term Goal (STG) Improve LEFS to at least 85% as measure of improved knee function and activity tolerance STG Duration 02/11/24 Prosthetic Lab Technician Goal (LTG) Improve LEFS to at least 90% as measure of improved knee function and activity tolerance LTG Duration 03/12/24 One Impairment knee pain left greater than right as high as 7/10 Short Term Goal (STG) Decrease pain to no greater than 4/10 with all usual activities STG Duration 02/11/24 Prosthetic Lab Technician Goal (LTG) Decrease pain to no greater than 2/10 with all usual activities including walking on level surfaces and uneven surfaces moving from sit to stand LTG Duration 03/12/24 Assessment Summary Assessment Patient presents to PT with function-limiting pain bilateral knees left greater than right with significant swelling left knee, but no redness, numbness, or tingling . x-rays 2 1/2 years ago showed mild left knee tricompartmental arthritis. Patient reports recent x-ray showed mostly arthritis on the inside of her knee. Patient reports worst pain with moving from sit to stand, squatting, kneeling, walking on incline. Evaluation reveals excess pronation left foot, genu valgus left, swelling left knee bao sup and infrapatellar, ligamentous laxity left knee, weakness in ankle platarflexion, knee flexion, and hip extension, exess lateral patellar positioning and glide kathryn left greater than right . Feel she would benefit from physical therapy to decrease her pain and swelling, improve her strength and flexibility and help return her to her prior level of function which included walking up to 4 miles per day without pain. Physical Therapy Plan Frequency and Duration Frequency of Treatment 2x/Week Duration of treatment (weeks) 8 Plan of Care Start Date 01/11/24 Plan of Care End Date 03/12/24 Therapeutic Interventions Therapeutic Interventions Gait Training,Home Exercise Program,Manual Therapy, Neuromuscular Re-education, Patient/Caregiver Education, Self-Care/Home Management,Soft Tissue Mobilization,Taping, Therapeutic Activities, Therapeutic Exercises Modalities Cold Pack/Ice Massage,Electric Stimulation,Hot Packs, Ultrasound Next Visit Focus/Plan Next Note Type Treatment Note Next Visit Plan ASsess response to KT tape and HEP. Trial shuttle leg press , closed chain strengthening as tolerated. gastroc stretching. Continue and/or modify KT tape as indicated. Plan of Care Dates Plan of Care Start Date 01/11/24 Plan of Care End Date 03/12/24 Electronically Signed by: Nisha Sy, PT 01/15/24 [id number] If you are in agreement with this Plan of Care, please return a signed and dated copy. I have reviewed this Plan of Care and certify that the skilled therapy services above are required to meet the patient?s needs. Physician Signature Date Printed Name and Credentials Clinical Instructor Signature Printed Name and Credentials
--- NOTE | 2024-01-31 16:02 | PT.OTN ---
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 30 years ago hurt left knee skiing downhill , wasn't treated. Now walks [address] at [place] 1 day per week 3 1/2 miles, other days walking downhill to [facility], then uphill. In August of this year was late to meet and decided to run, and it was downhill, has not felt well since then. Most recently hiking her left knee feels unstable. Now pain starts bottom of kneecap, moves around often to top of kneecap. Not able to take long walks right now due to pain and instabilityStates squatting causes the worst pain. Neighbor who is a PT gave her 45 degree wall squats and short arc quads. States she is horribly bad at stretching. Has history of plantar fascitis Prior Treatments and Tests x-rays; medial compartment Future Testing and Treatments Planned none at this time PT-OP-C Subjective Start: 01/10/24 15:52 Freq: Status: Active Protocol: Document 01/31/24 13:51 SAK (Rec: 01/31/24 14:38 [facility] [id number]) OP-PT Subjective Patient Comments Patient Comments states didn't think tape helpful, but after took off could feel the difference. Has been inconsistent with HEP . Notices it feels better if doesn't walk but doesn't want to walk. PT-OP-D Balance Start: 01/10/24 15:52 Freq: Status: Active Protocol: Document 01/11/24 13:44 SAK (Rec: 01/15/24 11:08 [facility] [id number]) OP-PT Balance Assessment Sitting Balance Static Sitting Balance Ability Normal Dynamic Sitting Balance Ability Normal Standing Balance Static Standing Balance Ability Normal Dynamic Standing Balance Ability Normal Michel Fall Scale Copyright Permission PT-OP-G Mobility & Gait Start: 01/10/24 15:52 Freq: Status: Active Protocol: Document 01/11/24 13:44 SAK (Rec: 01/15/24 11:08 [facility] [id number]) OP Gait Assessment Gait Gait Assistance Required: Independent Able to Maintain Weight Bearing Status Yes During Gait Assistive Devices Assistive Device None Gait Deviations General Gait Pattern Antalgic Factors Limiting Gait Function Factors Limiting Gait Function Pain Comments Gait Comments swelling Stair Climbing Evaluation Evaluation Level of Assist On Stairs Independent Devices Stair Climbing Assistive Devices Left Railing,Right Railing Technique/Endurance Stair Climbing Direction Ascend and Descend Stair Climbing Technique Step to Step PT-OP-H Neuro Start: 01/10/24 15:52 Freq: Status: Active Protocol: Document 01/11/24 13:44 [facility] (Rec: 01/15/24 11:08 [facility] [id number]) Sensation Evaluation Gross Sensation Gross Sensation WNL PT-OP-J Posture/Palpation/Skin Start: 01/10/24 15:52 Freq: Status: Active Protocol: Document 01/11/24 13:44 [facility] (Rec: 01/15/24 11:08 [facility] [id number]) Posture Evaluation Position Standing Pelvis Posture Anteriorly Tilted Knee Posture (L) Genu Valgus,(R) Genu Valgus Patellar Posture (L) Laterally Tilted,(R) Laterally Tilted Ankle/Foot Posture (L) Pronated Foot Arch (L) Low Arch PT-OP-K Range of Motion Start: 01/10/24 15:52 Freq: Status: Active Protocol: Document 01/11/24 13:44 SAK (Rec: 01/15/24 11:08 [facility] [id number]) Knee Goniometric Range of Motion Knee Left Flexion Active (degrees) 110 Extension Active (degrees) 5 Right Knee ROM WFL Yes Knee ROM Limitations Knee ROM Limitations Pain,Swelling Ankle and Foot Goniometric Range of Motion Ankle and Foot kathryn Dorsiflexion with Knee Flexed 5 Dorsiflexion with Knee Extended 0 Ankle and Foot ROM Limitations ROM Limitations Soft Tissue Tightness PT-OP-L Special Tests Start: 01/10/24 15:52 Freq: Status: Active Protocol: Document 01/11/24 13:44 [facility] (Rec: 01/15/24 11:08 [facility] [id number]) Special Tests Knee Special Tests Patellar Grind Test Test Results positive kathryn Valgus- 25 Degrees Test Results + laxity left vs right Anterior Draw Test Results + laxity left vs right PT-OP-M Strength Start: 01/10/24 15:52 Freq: Status: Active Protocol: Document 01/11/24 13:44 [facility] (Rec: 01/15/24 11:08 [facility] [id number]) Hip Strength Hip Manual Muscle Testing kathryn Flexion (L2) 4 Good Extension (S1) 4 Good Abduction 4 Good Adduction 4 Good External Rotation 4 Good Internal Rotation 4 Good Knee Strength Knee Manual Muscle Testing Left Flexion (S2) 4- Good- Extension (L3) 4- Good- Right Flexion (S2) 4+ Good+ Extension (L3) 4+ Good+ Ankle/Foot Strength Ankle and Foot Manual Muscle Testing Right Dorsiflexion (L4) 4+ Good+ Plantarflexion (S1) 4+ Good+ Left Dorsiflexion (L4) 4 Good Plantarflexion (S1) 4- Good- PT-OP-Q Treatments Start: 01/10/24 15:52 Freq: Status: Active Protocol: Document 01/31/24 13:51 [facility] (Rec: 01/31/24 14:38 [facility] [id number]) Cardio Equipment Recumbent Bicycle Duration (Minutes) 7 Resistance 4 Seat Position 5 Therapeutic Exercises Supine Exercises ITB stretch Equipment Used strap Reps/Minutes 2x30 Comments reports felt more posteriorly SLR Reps/Minutes 10x Prone Exercises hip ext Reps/Minutes 10x Comments pillow under hips, cues for core activation, no back arching Sidelying Exercises hip ad Reps/Minutes 10x Comments option for pillow to support top leg bent forward at 90/90 hip ab Reps/Minutes 10x Comments cues for LE's parallel Sitting Exercises hamstring curl Resistance L2 TB Reps/Minutes 10x5 Standing Exercises gastroc stretch Reps/Minutes 2x30 Comments stair, lunge heel raises Reps/Minutes 10x5, eccentric lowering Gait Training Gait Activity step up Surface 4 stair, railing Distance/Duration 5x Treatment Focus gluteal activation to dec quad stress Comments c/o knee pain try next time after taping, consider box in front of mirror to assess knee alingment Manual Therapy Treatment Consent Patient gave verbal consent for manual Yes treatment Taping left knee Treatment Focus patellar positioning, edema reduction Type of Tape Kinesio Tape Comments 1 Y strip base medial left knee , with tails sup and inf patella crossed lateral to patella to facil medial glide 75% stretch 2 fan strips for edema reduction left knee paper off tension Self-Care/Home Management Treatment Education Patient Education Home Exercise Program,Pain Management Other Education self massage with rolling pin, massage sticks on quad, ITB PT-OP-R Modalities Start: 01/10/24 15:52 Freq: Status: Active Protocol: Document 01/11/24 13:44 [facility] (Rec: 01/15/24 11:08 [facility] [id number]) Hot Pack/Cold Pack Treatment Cold Pack Location kathryn knees Patient Position Hooklying Patient Tolerance Good Comments legs elevated. PT-OP-T Assessment and Plan Start: 01/10/24 15:52 Freq: Status: Active Protocol: Document 01/31/24 13:51 SAK (Rec: 01/31/24 14:38 [facility] [id number]) Physical Therapy Assessment Impairments Impairments Activity Tolerance,Edema,Pain, ROM,Strength Goals Four Impairment strength and flexibility impairments LE's left greater than right Short Term Goal (STG) Patient to be instructed in HEP for purposes of LE strengthening and flexibility STG Duration 02/11/24 Fpc Goal (LTG) Patient to be independent and compliant with HEP and demonstrate flexiblity WNL and strength 5/5 kathryn LE's to allow her to return to prior level of functio LTG Duration 03/12/24 Three Impairment swelling left knee Fpc Goal (LTG) decrease swelling left knee to within 1 cm circumferential measurement as compared to right to promote improved right knee function LTG Duration 03/12/24 Two Impairment LEFS (lower extremity functional scale) 76% Short Term Goal (STG) Improve LEFS to at least 85% as measure of improved knee function and activity tolerance STG Duration 02/11/24 Fpc Goal (LTG) Improve LEFS to at least 90% as measure of improved knee function and activity tolerance LTG Duration 03/12/24 One Impairment knee pain left greater than right as high as 7/10 Short Term Goal (STG) Decrease pain to no greater than 4/10 with all usual activities STG Duration 02/11/24 Plate Preparer Goal (LTG) Decrease pain to no greater than 2/10 with all usual activities including walking on level surfaces and uneven surfaces moving from sit to stand LTG Duration 03/12/24 Assessment Summary Assessment Patient reported dec pain with KT tape. HEP compliance inconsistent. Pain with step ups but done prior to KT tape; will want to try after and with mirror for visual feedback. Liked recumbant exercise bike. Encouraged cross training instead of daily walks, consider ex bike, pool. Physical Therapy Plan Frequency and Duration Frequency of Treatment 2x/Week Duration of treatment (weeks) 8 Plan of Care Start Date 01/11/24 Plan of Care End Date 03/12/24 Therapeutic Interventions Therapeutic Interventions Gait Training,Home Exercise Program,Manual Therapy, Neuromuscular Re-education, Patient/Caregiver Education, Self-Care/Home Management,Soft Tissue Mobilization,Taping, Therapeutic Activities, Therapeutic Exercises Modalities Cold Pack/Ice Massage,Electric Stimulation,Hot Packs, Ultrasound Next Visit Focus/Plan Next Note Type Treatment Note Next Visit Plan Progress time and resistance on recumbant ex bike, encourage circular motion. Trial step-ups 4 in front of mirror, also shallow squats for alignment and correct muscle activation.
--- NOTE | 2024-02-06 16:11 | PT.OTN ---
Current Diagnoses Pain in right knee (02/06/24) Pain in left knee (02/06/24) Soft tissue disorder, unspecified (02/06/24) Difficulty in walking, not elsewhere classified (02/06/24) Weakness (02/06/24) Physical Therapy Treatment Note PT-OP-A Visit Information Start: 01/10/24 15:52 Freq: Status: Active Protocol: Document 02/06/24 13:01 [facility] (Rec: 02/06/24 13:47 [facility] [id number]) Out-Patient Physical Therapy Visit Information Visit Information Visit Start Time 13:01 Visit Stop Time 13:56 Visit Number 3 Evaluation Information Evaluation Date 01/11/24 PT-OP-B Current Condition Start: 01/10/24 15:52 Freq: Status: Active Protocol: Document 02/06/24 13:01 [facility] (Rec: 02/06/24 13:47 [facility] [id number]) Current Condition History of Current Condition Onset Date August 2023 Current Complaints kathryn knee pain left greater than right History of Current Condition 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 30 years ago hurt left knee skiing downhill , wasn't treated. Now walks [address] at [place] 1 day per week 3 1/2 miles, other days walking downhill to [facility], then uphill. In August of this year was late to meet and decided to run, and it was downhill, has not felt well since then. Most recently hiking her left knee feels unstable. Now pain starts bottom of kneecap, moves around often to top of kneecap. Not able to take long walks right now due to pain and instabilityStates squatting causes the worst pain. Neighbor who is a PT gave her 45 degree wall squats and short arc quads. States she is horribly bad at stretching. Has history of plantar fascitis Prior Treatments and Tests x-rays; medial compartment Future Testing and Treatments Planned none at this time Treatment Goals Patient/Caregiver Goals minimize pain, and be able to return to walking 3 1/2 miles per day and all other distances without difficulty Current Functional Impairments (Reported) Functional Limitations- ADL's painful Functional Limitations- Mobility/Gait limited distances, feeling of instability PT-OP-C Subjective Start: 01/10/24 15:52 Freq: Status: Active Protocol: Document 02/06/24 13:01 [facility] (Rec: 02/06/24 13:47 [facility] [id number]) OP-PT Subjective Patient Comments Patient Comments Had to take a couple mental health days, noticed less knee pain. Walked on Monday. Heel raises hurt ball of foot R (states fur nailer told her she has a longer bone on that foot, not to do heel raises). Likes KT tape. PT-OP-D Balance Start: 01/10/24 15:52 Freq: Status: Active Protocol: Document 01/11/24 13:44 [facility] (Rec: 01/15/24 11:08 [facility] [id number]) OP-PT Balance Assessment Sitting Balance Static Sitting Balance Ability Normal Dynamic Sitting Balance Ability Normal Standing Balance Static Standing Balance Ability Normal Dynamic Standing Balance Ability Normal Michel Fall Scale Copyright Permission PT-OP-G Mobility & Gait Start: 01/10/24 15:52 Freq: Status: Active Protocol: Document 01/11/24 13:44 [facility] (Rec: 01/15/24 11:08 [facility] [id number]) OP Gait Assessment Gait Gait Assistance Required: Independent Able to Maintain Weight Bearing Status Yes During Gait Assistive Devices Assistive Device None Gait Deviations General Gait Pattern Antalgic Factors Limiting Gait Function Factors Limiting Gait Function Pain Comments Gait Comments swelling Stair Climbing Evaluation Evaluation Level of Assist On Stairs Independent Devices Stair Climbing Assistive Devices Left Railing,Right Railing Technique/Endurance Stair Climbing Direction Ascend and Descend Stair Climbing Technique Step to Step PT-OP-H Neuro Start: 01/10/24 15:52 Freq: Status: Active Protocol: Document 01/11/24 13:44 [facility] (Rec: 01/15/24 11:08 [facility] [id number]) Sensation Evaluation Gross Sensation Gross Sensation WNL PT-OP-J Posture/Palpation/Skin Start: 01/10/24 15:52 Freq: Status: Active Protocol: Document 01/11/24 13:44 [facility] (Rec: 01/15/24 11:08 [facility] [id number]) Posture Evaluation Position Standing Pelvis Posture Anteriorly Tilted Knee Posture (L) Genu Valgus,(R) Genu Valgus Patellar Posture (L) Laterally Tilted,(R) Laterally Tilted Ankle/Foot Posture (L) Pronated Foot Arch (L) Low Arch PT-OP-K Range of Motion Start: 01/10/24 15:52 Freq: Status: Active Protocol: Document 01/11/24 13:44 [facility] (Rec: 01/15/24 11:08 [facility] [id number]) Knee Goniometric Range of Motion Knee Left Flexion Active (degrees) 110 Extension Active (degrees) 5 Right Knee ROM WFL Yes Knee ROM Limitations Knee ROM Limitations Pain,Swelling Ankle and Foot Goniometric Range of Motion Ankle and Foot kathryn Dorsiflexion with Knee Flexed 5 Dorsiflexion with Knee Extended 0 Ankle and Foot ROM Limitations ROM Limitations Soft Tissue Tightness PT-OP-L Special Tests Start: 01/10/24 15:52 Freq: Status: Active Protocol: Document 01/11/24 13:44 [facility] (Rec: 01/15/24 11:08 [facility] [id number]) Special Tests Knee Special Tests Patellar Grind Test Test Results positive kathryn Valgus- 25 Degrees Test Results + laxity left vs right Anterior Draw Test Results + laxity left vs right PT-OP-M Strength Start: 01/10/24 15:52 Freq: Status: Active Protocol: Document 01/11/24 13:44 [facility] (Rec: 01/15/24 11:08 [facility] [id number]) Hip Strength Hip Manual Muscle Testing akthryn Flexion (L2) 4 Good Extension (S1) 4 Good Abduction 4 Good Adduction 4 Good External Rotation 4 Good Internal Rotation 4 Good Knee Strength Knee Manual Muscle Testing Left Flexion (S2) 4- Good- Extension (L3) 4- Good- Right Flexion (S2) 4+ Good+ Extension (L3) 4+ Good+ Ankle/Foot Strength Ankle and Foot Manual Muscle Testing Right Dorsiflexion (L4) 4+ Good+ Plantarflexion (S1) 4+ Good+ Left Dorsiflexion (L4) 4 Good Plantarflexion (S1) 4- Good- PT-OP-Q Treatments Start: 01/10/24 15:52 Freq: Status: Active Protocol: Document 02/06/24 13:01 [facility] (Rec: 02/06/24 13:47 [facility] [id number]) Cardio Equipment Recumbent Bicycle Duration (Minutes) 7 Resistance 4 Seat Position 5 Other cues for neutral LE's Therapeutic Exercises Supine Exercises single leg bridge Comments painful left knee ITB stretch Supine Exercise Name HEP SLR Supine Exercise Name HEP Prone Exercises hip ext Prone Exercise Name HEP Sidelying Exercises hip ad Sidelying Exercise Name HEP hip ab Sidelying Exercise Name HEP Sitting Exercises hamstring curl Sitting Exercise Name added to HEP Resistance L2 TB Reps/Minutes 10x5 Standing Exercises fwd/back Standing Exercise Name monster walk Equipment Used L2 TB ankles Comments added to HEP sidestepping Resistance L2 TB ankles Reps/Minutes 5 ft x 2 kathryn Comments added to HEP Squat Equipment Used L2 TB distal thighs Reps/Minutes 10x2 Comments added to HEP Gait Training Gait Activity step up Comments retry next session after KT tape, analyze alignment Manual Therapy Treatment Taping left knee Treatment Focus patellar positioning, edema reduction Type of Tape Kinesio Tape Comments 1 Y strip base medial left knee , with tails sup and inf patella crossed lateral to patella to facil medial glide 75% stretch 2 fan strips for edema reduction left knee paper off tension Self-Care/Home Management Treatment Education Patient Education Home Exercise Program,Pain Management PT-OP-R Modalities Start: 01/10/24 15:52 Freq: Status: Active Protocol: Document 01/11/24 13:44 [facility] (Rec: 01/15/24 11:08 [facility] [id number]) Hot Pack/Cold Pack Treatment Cold Pack Location kathryn knees Patient Position Hooklying Patient Tolerance Good Comments legs elevated. PT-OP-T Assessment and Plan Start: 01/10/24 15:52 Freq: Status: Active Protocol: Document 02/06/24 13:01 [facility] (Rec: 02/06/24 16:10 [facility] [id number]) Physical Therapy Assessment Goals Four Impairment strength and flexibility impairments LE's left greater than right Short Term Goal (STG) Patient to be instructed in HEP for purposes of LE strengthening and flexibility STG Duration 02/11/24 Jail Goal (LTG) Patient to be independent and compliant with HEP and demonstrate flexiblity WNL and strength 5/5 kathryn LE's to allow her to return to prior level of functio LTG Duration 03/12/24 Three Impairment swelling left knee Infertility Nurse Goal (LTG) decrease swelling left knee to within 1 cm circumferential measurement as compared to right to promote improved right knee function LTG Duration 03/12/24 Two Impairment LEFS (lower extremity functional scale) 76% Short Term Goal (STG) Improve LEFS to at least 85% as measure of improved knee function and activity tolerance STG Duration 02/11/24 Jail Goal (LTG) Improve LEFS to at least 90% as measure of improved knee function and activity tolerance LTG Duration 03/12/24 One Impairment knee pain left greater than right as high as 7/10 Short Term Goal (STG) Decrease pain to no greater than 4/10 with all usual activities STG Duration 02/11/24 Jail Goal (LTG) Decrease pain to no greater than 2/10 with all usual activities including walking on level surfaces and uneven surfaces moving from sit to stand LTG Duration 03/12/24 Assessment Summary Assessment Patient reported noticing some less pain especially when has KT tape; squatting to use public restroom less painful. Needed mod cues and mirror for visual feedback to watch knee tracking during squat, demonstrated improved understanding. Updated [facility] Physical Therapy Plan Frequency and Duration Frequency of Treatment 2x/Week Duration of treatment (weeks) 8 Plan of Care Start Date 01/11/24 Plan of Care End Date 03/12/24 Therapeutic Interventions Therapeutic Interventions Gait Training,Home Exercise Program,Manual Therapy, Neuromuscular Re-education, Patient/Caregiver Education, Self-Care/Home Management,Soft Tissue Mobilization,Taping, Therapeutic Activities, Therapeutic Exercises Modalities Cold Pack/Ice Massage,Electric Stimulation,Hot Packs, Ultrasound Next Visit Focus/Plan Next Note Type Treatment Note Next Visit Plan Trial step-ups 4 in front of mirror. Review squats.
--- NOTE | 2024-02-09 16:37 | PT.OTN ---
Current Diagnoses Pain in right knee (02/09/24) Pain in left knee (02/09/24) Soft tissue disorder, unspecified (02/09/24) Difficulty in walking, not elsewhere classified (02/09/24) Weakness (02/09/24) Physical Therapy Treatment Note PT-OP-A Visit Information Start: 01/10/24 15:52 Freq: Status: Active Protocol: Document 02/09/24 12:58 AB (Rec: 02/09/24 16:36 AB [id number]) Out-Patient Physical Therapy Visit Information Visit Information Visit Type Treatment Note Visit Start Time 14:31 Visit Stop Time 15:16 Visit Number 4 Number of INSULATION AND FLOORING ASSEMBLER Visits 1 Evaluation Information Evaluation Date 01/11/24 PT-OP-B Current Condition Start: 01/10/24 15:52 Freq: Status: Active Protocol: Document 02/06/24 13:01 SAK (Rec: 02/06/24 13:47 SAK [id number]) Current Condition History of Current Condition Onset Date August 2023 Current Complaints kathryn knee pain left greater than right History of Current Condition 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 30 years ago hurt left knee skiing downhill , wasn't treated. Now walks [address] at [place] 1 day per week 3 1/2 miles, other days walking downhill to [facility], then uphill. In August of this year was late to meet and decided to run, and it was downhill, has not felt well since then. Most recently hiking her left knee feels unstable. Now pain starts bottom of kneecap, moves around often to top of kneecap. Not able to take long walks right now due to pain and instabilityStates squatting causes the worst pain. Neighbor who is a PT gave her 45 degree wall squats and short arc quads. States she is horribly bad at stretching. Has history of plantar fascitis Prior Treatments and Tests x-rays; medial compartment Future Testing and Treatments Planned none at this time Treatment Goals Patient/Caregiver Goals minimize pain, and be able to return to walking 3 1/2 miles per day and all other distances without difficulty Current Functional Impairments (Reported) Functional Limitations- ADL's painful Functional Limitations- Mobility/Gait limited distances, feeling of instability PT-OP-C Subjective Start: 01/10/24 15:52 Freq: Status: Active Protocol: Document 02/09/24 12:58 AB (Rec: 02/09/24 16:36 AB [id number]) OP-PT Subjective Patient Comments Patient Comments Patient reports she is the same, maybe a tiny bit worse. Patient reports she did the exercises every day but one. Patient reports she feels she is jammming the opposite knee into the floor with prone hip extension. Patient reports the ball of her foot hurt post after her walk today so she didn't do the heel lift. Patient rates knee pain 07/04 start of session. PT-OP-D Balance Start: 01/10/24 15:52 Freq: Status: Active Protocol: Document 01/11/24 13:44 SAK (Rec: 01/15/24 11:08 [facility] [id number]) OP-PT Balance Assessment Sitting Balance Static Sitting Balance Ability Normal Dynamic Sitting Balance Ability Normal Standing Balance Static Standing Balance Ability Normal Dynamic Standing Balance Ability Normal Michel Fall Scale Copyright Permission PT-OP-G Mobility & Gait Start: 01/10/24 15:52 Freq: Status: Active Protocol: Document 01/11/24 13:44 SAK (Rec: 01/15/24 11:08 [facility] [id number]) OP Gait Assessment Gait Gait Assistance Required: Independent Able to Maintain Weight Bearing Status Yes During Gait Assistive Devices Assistive Device None Gait Deviations General Gait Pattern Antalgic Factors Limiting Gait Function Factors Limiting Gait Function Pain Comments Gait Comments swelling Stair Climbing Evaluation Evaluation Level of Assist On Stairs Independent Devices Stair Climbing Assistive Devices Left Railing,Right Railing Technique/Endurance Stair Climbing Direction Ascend and Descend Stair Climbing Technique Step to Step PT-OP-H Neuro Start: 01/10/24 15:52 Freq: Status: Active Protocol: Document 01/11/24 13:44 SAK (Rec: 01/15/24 11:08 SAK [id number]) Sensation Evaluation Gross Sensation Gross Sensation WNL PT-OP-J Posture/Palpation/Skin Start: 01/10/24 15:52 Freq: Status: Active Protocol: Document 01/11/24 13:44 SAK (Rec: 01/15/24 11:08 SAK [id number]) Posture Evaluation Position Standing Pelvis Posture Anteriorly Tilted Knee Posture (L) Genu Valgus,(R) Genu Valgus Patellar Posture (L) Laterally Tilted,(R) Laterally Tilted Ankle/Foot Posture (L) Pronated Foot Arch (L) Low Arch PT-OP-K Range of Motion Start: 01/10/24 15:52 Freq: Status: Active Protocol: Document 01/11/24 13:44 [facility] (Rec: 01/15/24 11:08 [facility] [id number]) Knee Goniometric Range of Motion Knee Left Flexion Active (degrees) 110 Extension Active (degrees) 5 Right Knee ROM WFL Yes Knee ROM Limitations Knee ROM Limitations Pain,Swelling Ankle and Foot Goniometric Range of Motion Ankle and Foot kathryn Dorsiflexion with Knee Flexed 5 Dorsiflexion with Knee Extended 0 Ankle and Foot ROM Limitations ROM Limitations Soft Tissue Tightness PT-OP-L Special Tests Start: 01/10/24 15:52 Freq: Status: Active Protocol: Document 01/11/24 13:44 [facility] (Rec: 01/15/24 11:08 [facility] [id number]) Special Tests Knee Special Tests Patellar Grind Test Test Results positive kathryn Valgus- 25 Degrees Test Results + laxity left vs right Anterior Draw Test Results + laxity left vs right PT-OP-M Strength Start: 01/10/24 15:52 Freq: Status: Active Protocol: Document 01/11/24 13:44 [facility] (Rec: 01/15/24 11:08 [facility] [id number]) Hip Strength Hip Manual Muscle Testing kathryn Flexion (L2) 4 Good Extension (S1) 4 Good Abduction 4 Good Adduction 4 Good External Rotation 4 Good Internal Rotation 4 Good Knee Strength Knee Manual Muscle Testing Left Flexion (S2) 4- Good- Extension (L3) 4- Good- Right Flexion (S2) 4+ Good+ Extension (L3) 4+ Good+ Ankle/Foot Strength Ankle and Foot Manual Muscle Testing Right Dorsiflexion (L4) 4+ Good+ Plantarflexion (S1) 4+ Good+ Left Dorsiflexion (L4) 4 Good Plantarflexion (S1) 4- Good- PT-OP-Q Treatments Start: 01/10/24 15:52 Freq: Status: Active Protocol: Document 02/09/24 12:58 AB (Rec: 02/09/24 16:36 AB [id number]) Therapeutic Exercises Supine Exercises Modified Theodore stretch Supine Exercise Name HEP Side bilateral Reps/Minutes one minute each LE X2 Comments verbal cues Prone Exercises hip ext Prone Exercise Name HEP Reps/Minutes X3X2 right LE then X 10 each LE Comments initiated without pillow then with 2 pillows Standing Exercises sit to stand Side bilateral Reps/Minutes X3 X 3 Comments Patient ed use of self tactile cues for hip hinge glute med activation Standing Exercise Name at wall Side bilateral Equipment Used HEP Reps/Minutes one minute Comments verbal and visual cues step up Standing Exercise Name 4 inch step up Side left Reps/Minutes X7 Comments Patient comments she feels it in her knee Therapeutic Activity Therapeutic Activity stairs Reps/Minutes 4 six inch stairs X 2 Comments Verbal and visual cues for less quad dominant pattern descending and to activate gluteal muscles when ascending . Patient ed to have a slight crease at hips for hills also. Manual Therapy Treatment Consent Patient gave verbal consent for manual Yes treatment Soft Tissue Mobilization left knee Body Location for swelling Mobilization Type Other Intensity/Depth Moderate Body Position Hooklying Comments LE elevated above heart Taping left knee Treatment Focus unload fat pad Type of Tape Kinesio Tape Comments bilateral I stip peripatellarmedial and lat each knee PT-OP-R Modalities Start: 01/10/24 15:52 Freq: Status: Active Protocol: Document 01/11/24 13:44 SAK (Rec: 01/15/24 11:08 SAK [id number]) Hot Pack/Cold Pack Treatment Cold Pack Location kathryn knees Patient Position Hooklying Patient Tolerance Good Comments legs elevated. PT-OP-T Assessment and Plan Start: 01/10/24 15:52 Freq: Status: Active Protocol: Document 02/09/24 12:58 AB (Rec: 02/09/24 16:36 AB [id number]) Physical Therapy Assessment Goals Four Impairment strength and flexibility impairments LE's left greater than right Short Term Goal (STG) Patient to be instructed in HEP for purposes of LE strengthening and flexibility STG Duration 02/11/24 Care Home Goal (LTG) Patient to be independent and compliant with HEP and demonstrate flexiblity WNL and strength 5/5 kathryn LE's to allow her to return to prior level of functio LTG Duration 03/12/24 Three Impairment swelling left knee Staff Physician Goal (LTG) decrease swelling left knee to within 1 cm circumferential measurement as compared to right to promote improved right knee function LTG Duration 03/12/24 Two Impairment LEFS (lower extremity functional scale) 76% Short Term Goal (STG) Improve LEFS to at least 85% as measure of improved knee function and activity tolerance STG Duration 02/11/24 Care Home Goal (LTG) Improve LEFS to at least 90% as measure of improved knee function and activity tolerance LTG Duration 03/12/24 One Impairment knee pain left greater than right as high as 7/10 Short Term Goal (STG) Decrease pain to no greater than 4/10 with all usual activities STG Duration 02/11/24 Care Home Goal (LTG) Decrease pain to no greater than 2/10 with all usual activities including walking on level surfaces and uneven surfaces moving from sit to stand LTG Duration 03/12/24 Assessment Summary Assessment Patient rates left knee pain 3 /10 end of session, able to descend stairs with a less quad dominant pattern, but reports of increased pain persists. Shalonda reports pain is a little less post hip hinge instruction during sit to stand, but persists. Physical Therapy Plan Frequency and Duration Frequency of Treatment 2x/Week Duration of treatment (weeks) 8 Plan of Care Start Date 01/11/24 Plan of Care End Date 03/12/24 Next Visit Focus/Plan Next Note Type Treatment Note Next Visit Plan Revisit step-ups 4 in front of mirror. Review squats.
--- NOTE | 2024-02-12 15:28 | PT.OTN ---
Current Diagnoses Pain in right knee (02/12/24) Pain in left knee (02/12/24) Soft tissue disorder, unspecified (02/12/24) Difficulty in walking, not elsewhere classified (02/12/24) Weakness (02/12/24) Physical Therapy Treatment Note PT-OP-A Visit Information Start: 01/10/24 15:52 Freq: Status: Active Protocol: Document 02/12/24 14:29 AB (Rec: 02/12/24 15:28 AB [id number]) Out-Patient Physical Therapy Visit Information Visit Information Visit Type Treatment Note Visit Note [id number] Access code Visit Start Time 14:33 Visit Stop Time 15:16 Visit Number 5 Number of MILK VENDOR Visits 1 Evaluation Information Evaluation Date 01/11/24 PT-OP-B Current Condition Start: 01/10/24 15:52 Freq: Status: Active Protocol: Document 02/06/24 13:01 SAK (Rec: 02/06/24 13:47 SAK [id number]) Current Condition History of Current Condition Onset Date August 2023 Current Complaints kathryn knee pain left greater than right History of Current Condition 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 30 years ago hurt left knee skiing downhill , wasn't treated. Now walks [address] at [place] 1 day per week 3 1/2 miles, other days walking downhill to [facility], then uphill. In August of this year was late to meet and decided to run, and it was downhill, has not felt well since then. Most recently hiking her left knee feels unstable. Now pain starts bottom of kneecap, moves around often to top of kneecap. Not able to take long walks right now due to pain and instabilityStates squatting causes the worst pain. Neighbor who is a PT gave her 45 degree wall squats and short arc quads. States she is horribly bad at stretching. Has history of plantar fascitis Prior Treatments and Tests x-rays; medial compartment Future Testing and Treatments Planned none at this time Treatment Goals Patient/Caregiver Goals minimize pain, and be able to return to walking 3 1/2 miles per day and all other distances without difficulty Current Functional Impairments (Reported) Functional Limitations- ADL's painful Functional Limitations- Mobility/Gait limited distances, feeling of instability PT-OP-C Subjective Start: 01/10/24 15:52 Freq: Status: Active Protocol: Document 02/12/24 14:29 AB (Rec: 02/12/24 15:28 AB [id number]) OP-PT Subjective Patient Comments Patient Comments Patient reports Monday night knees felt like she was hit with a hammer. Patient reports she did her exercises already today, except didn't to much of the heel raises. Patient reports she did a power walk today. Shalonda rates pain 3/ 10 L>R start of session. PT-OP-D Balance Start: 01/10/24 15:52 Freq: Status: Active Protocol: Document 01/11/24 13:44 SAK (Rec: 01/15/24 11:08 [facility] [id number]) OP-PT Balance Assessment Sitting Balance Static Sitting Balance Ability Normal Dynamic Sitting Balance Ability Normal Standing Balance Static Standing Balance Ability Normal Dynamic Standing Balance Ability Normal Michel Fall Scale Copyright Permission PT-OP-G Mobility & Gait Start: 01/10/24 15:52 Freq: Status: Active Protocol: Document 01/11/24 13:44 SAK (Rec: 01/15/24 11:08 [facility] [id number]) OP Gait Assessment Gait Gait Assistance Required: Independent Able to Maintain Weight Bearing Status Yes During Gait Assistive Devices Assistive Device None Gait Deviations General Gait Pattern Antalgic Factors Limiting Gait Function Factors Limiting Gait Function Pain Comments Gait Comments swelling Stair Climbing Evaluation Evaluation Level of Assist On Stairs Independent Devices Stair Climbing Assistive Devices Left Railing,Right Railing Technique/Endurance Stair Climbing Direction Ascend and Descend Stair Climbing Technique Step to Step PT-OP-H Neuro Start: 01/10/24 15:52 Freq: Status: Active Protocol: Document 01/11/24 13:44 SAK (Rec: 01/15/24 11:08 [facility] [id number]) Sensation Evaluation Gross Sensation Gross Sensation WNL PT-OP-J Posture/Palpation/Skin Start: 01/10/24 15:52 Freq: Status: Active Protocol: Document 01/11/24 13:44 SAK (Rec: 01/15/24 11:08 [facility] [id number]) Posture Evaluation Position Standing Pelvis Posture Anteriorly Tilted Knee Posture (L) Genu Valgus,(R) Genu Valgus Patellar Posture (L) Laterally Tilted,(R) Laterally Tilted Ankle/Foot Posture (L) Pronated Foot Arch (L) Low Arch PT-OP-K Range of Motion Start: 01/10/24 15:52 Freq: Status: Active Protocol: Document 01/11/24 13:44 [facility] (Rec: 01/15/24 11:08 [facility] [id number]) Knee Goniometric Range of Motion Knee Left Flexion Active (degrees) 110 Extension Active (degrees) 5 Right Knee ROM WFL Yes Knee ROM Limitations Knee ROM Limitations Pain,Swelling Ankle and Foot Goniometric Range of Motion Ankle and Foot kathryn Dorsiflexion with Knee Flexed 5 Dorsiflexion with Knee Extended 0 Ankle and Foot ROM Limitations ROM Limitations Soft Tissue Tightness PT-OP-L Special Tests Start: 01/10/24 15:52 Freq: Status: Active Protocol: Document 01/11/24 13:44 [facility] (Rec: 01/15/24 11:08 [facility] [id number]) Special Tests Knee Special Tests Patellar Grind Test Test Results positive kathryn Valgus- 25 Degrees Test Results + laxity left vs right Anterior Draw Test Results + laxity left vs right PT-OP-M Strength Start: 01/10/24 15:52 Freq: Status: Active Protocol: Document 01/11/24 13:44 [facility] (Rec: 01/15/24 11:08 [facility] [id number]) Hip Strength Hip Manual Muscle Testing kathryn Flexion (L2) 4 Good Extension (S1) 4 Good Abduction 4 Good Adduction 4 Good External Rotation 4 Good Internal Rotation 4 Good Knee Strength Knee Manual Muscle Testing Left Flexion (S2) 4- Good- Extension (L3) 4- Good- Right Flexion (S2) 4+ Good+ Extension (L3) 4+ Good+ Ankle/Foot Strength Ankle and Foot Manual Muscle Testing Right Dorsiflexion (L4) 4+ Good+ Plantarflexion (S1) 4+ Good+ Left Dorsiflexion (L4) 4 Good Plantarflexion (S1) 4- Good- PT-OP-Q Treatments Start: 01/10/24 15:52 Freq: Status: Active Protocol: Document 02/12/24 14:29 AB (Rec: 02/12/24 15:28 AB [id number]) Therapeutic Exercises Supine Exercises Modified Theodore stretch Supine Exercise Name HEP Side bilateral Reps/Minutes one minute each LE X2 with AROM knee flexion X 10 during stretch Comments Verbal cues Standing Exercises step up Standing Exercise Name 4 inch step up Side left Reps/Minutes X15 each LE Comments monitored for pain heel raises Reps/Minutes X15, eccentric lowering Comments Verbal cues to lower slowly Manual Therapy Treatment Consent Patient gave verbal consent for manual Yes treatment Soft Tissue Mobilization left knee Body Location for swelling Mobilization Type Other Intensity/Depth Moderate Body Position Hooklying Comments LE elevated above heart Taping left knee Treatment Focus unload fat pad patellar positioning, edema reduction Type of Tape Kinesio Tape Comments 1 Y strip base medial left knee , with tails sup and inf patella crossed lateral to patella to facil medial glide 75% stretch bilateral I stip peripatellarmedial and lat each knee [ End ] PT-OP-R Modalities Start: 01/10/24 15:52 Freq: Status: Active Protocol: Document 01/11/24 13:44 SAK (Rec: 01/15/24 11:08 SAK [id number]) Hot Pack/Cold Pack Treatment Cold Pack Location kathryn knees Patient Position Hooklying Patient Tolerance Good Comments legs elevated. PT-OP-T Assessment and Plan Start: 01/10/24 15:52 Freq: Status: Active Protocol: Document 02/12/24 14:29 AB (Rec: 02/12/24 15:28 AB [id number]) Physical Therapy Assessment Goals Four Impairment strength and flexibility impairments LE's left greater than right Short Term Goal (STG) Patient to be instructed in HEP for purposes of LE strengthening and flexibility STG Duration 02/11/24 [facility]iary Goal (LTG) Patient to be independent and compliant with HEP and demonstrate flexiblity WNL and strength 5/5 kathryn LE's to allow her to return to prior level of functio LTG Duration 03/12/24 Three Impairment swelling left knee Office Engineer Goal (LTG) decrease swelling left knee to within 1 cm circumferential measurement as compared to right to promote improved right knee function LTG Duration 03/12/24 Two Impairment LEFS (lower extremity functional scale) 76% Short Term Goal (STG) Improve LEFS to at least 85% as measure of improved knee function and activity tolerance STG Duration 02/11/24 Office Engineer Goal (LTG) Improve LEFS to at least 90% as measure of improved knee function and activity tolerance LTG Duration 03/12/24 One Impairment knee pain left greater than right as high as 7/10 Short Term Goal (STG) Decrease pain to no greater than 4/10 with all usual activities STG Duration 02/11/24 Penitentiary Goal (LTG) Decrease pain to no greater than 2/10 with all usual activities including walking on level surfaces and uneven surfaces moving from sit to stand LTG Duration 03/12/24 Assessment Summary Assessment Patient rates left knee pain . 5/10 end of session. Improved justice to step ups this session on 4 inch step. Physical Therapy Plan Frequency and Duration Frequency of Treatment 2x/Week Duration of treatment (weeks) 8 Plan of Care Start Date 01/11/24 Plan of Care End Date 03/12/24 Next Visit Focus/Plan Next Note Type Treatment Note Next Visit Plan Revisit step-ups 4 in front of mirror/ possibly lateral Review squats. Possibly assess balance, progress side step/ monster walk with band as able
--- NOTE | 2024-02-15 16:28 | PT.OTN ---
Current Diagnoses Pain in right knee (02/15/24) Pain in left knee (02/15/24) Soft tissue disorder, unspecified (02/15/24) Difficulty in walking, not elsewhere classified (02/15/24) Weakness (02/15/24) Physical Therapy Treatment Note PT-OP-A Visit Information Start: 01/10/24 15:52 Freq: Status: Active Protocol: Document 02/15/24 11:59 AB (Rec: 02/15/24 16:28 AB [id number]) Out-Patient Physical Therapy Visit Information Visit Information Visit Type Treatment Note Visit Note [id number] Access code Visit Start Time 14:33 Visit Stop Time 15:17 Visit Number 6 Number of HIGH DENSITY FINISHING OPERATOR Visits 3 Evaluation Information Evaluation Date 01/11/24 PT-OP-B Current Condition Start: 01/10/24 15:52 Freq: Status: Active Protocol: Document 02/06/24 13:01 SAK (Rec: 02/06/24 13:47 SAK [id number]) Current Condition History of Current Condition Onset Date August 2023 Current Complaints kathryn knee pain left greater than right History of Current Condition 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 30 years ago hurt left knee skiing downhill , wasn't treated. Now walks [address] at [place] 1 day per week 3 1/2 miles, other days walking downhill to [facility], then uphill. In August of this year was late to meet and decided to run, and it was downhill, has not felt well since then. Most recently hiking her left knee feels unstable. Now pain starts bottom of kneecap, moves around often to top of kneecap. Not able to take long walks right now due to pain and instabilityStates squatting causes the worst pain. Neighbor who is a PT gave her 45 degree wall squats and short arc quads. States she is horribly bad at stretching. Has history of plantar fascitis Prior Treatments and Tests x-rays; medial compartment Future Testing and Treatments Planned none at this time Treatment Goals Patient/Caregiver Goals minimize pain, and be able to return to walking 3 1/2 miles per day and all other distances without difficulty Current Functional Impairments (Reported) Functional Limitations- ADL's painful Functional Limitations- Mobility/Gait limited distances, feeling of instability PT-OP-C Subjective Start: 01/10/24 15:52 Freq: Status: Active Protocol: Document 02/15/24 11:59 AB (Rec: 02/15/24 16:28 AB [id number]) OP-PT Subjective Patient Comments Patient Comments Patient [place] pain post. Patient reports she is between better and the same, comments kneeling is painful. Patient rates pain 3/ 10 post knee in quadruped. with rock back to heels pain is top of knee cap to quad. SLS 15+ seconds with ipsilateral trunk sidebend left>R ( without UE use. PT-OP-D Balance Start: 01/10/24 15:52 Freq: Status: Active Protocol: Document 01/11/24 13:44 SAK (Rec: 01/15/24 11:08 [facility] [id number]) OP-PT Balance Assessment Sitting Balance Static Sitting Balance Ability Normal Dynamic Sitting Balance Ability Normal Standing Balance Static Standing Balance Ability Normal Dynamic Standing Balance Ability Normal Michel Fall Scale Copyright Permission PT-OP-G Mobility & Gait Start: 01/10/24 15:52 Freq: Status: Active Protocol: Document 01/11/24 13:44 SAK (Rec: 01/15/24 11:08 SAK [id number]) OP Gait Assessment Gait Gait Assistance Required: Independent Able to Maintain Weight Bearing Status Yes During Gait Assistive Devices Assistive Device None Gait Deviations General Gait Pattern Antalgic Factors Limiting Gait Function Factors Limiting Gait Function Pain Comments Gait Comments swelling Stair Climbing Evaluation Evaluation Level of Assist On Stairs Independent Devices Stair Climbing Assistive Devices Left Railing,Right Railing Technique/Endurance Stair Climbing Direction Ascend and Descend Stair Climbing Technique Step to Step PT-OP-H Neuro Start: 01/10/24 15:52 Freq: Status: Active Protocol: Document 01/11/24 13:44 SAK (Rec: 01/15/24 11:08 SAK [id number]) Sensation Evaluation Gross Sensation Gross Sensation WNL PT-OP-J Posture/Palpation/Skin Start: 01/10/24 15:52 Freq: Status: Active Protocol: Document 01/11/24 13:44 SAK (Rec: 01/15/24 11:08 SAK [id number]) Posture Evaluation Position Standing Pelvis Posture Anteriorly Tilted Knee Posture (L) Genu Valgus,(R) Genu Valgus Patellar Posture (L) Laterally Tilted,(R) Laterally Tilted Ankle/Foot Posture (L) Pronated Foot Arch (L) Low Arch PT-OP-K Range of Motion Start: 01/10/24 15:52 Freq: Status: Active Protocol: Document 01/11/24 13:44 [facility] (Rec: 01/15/24 11:08 [facility] [id number]) Knee Goniometric Range of Motion Knee Left Flexion Active (degrees) 110 Extension Active (degrees) 5 Right Knee ROM WFL Yes Knee ROM Limitations Knee ROM Limitations Pain,Swelling Ankle and Foot Goniometric Range of Motion Ankle and Foot kathryn Dorsiflexion with Knee Flexed 5 Dorsiflexion with Knee Extended 0 Ankle and Foot ROM Limitations ROM Limitations Soft Tissue Tightness PT-OP-L Special Tests Start: 01/10/24 15:52 Freq: Status: Active Protocol: Document 01/11/24 13:44 [facility] (Rec: 01/15/24 11:08 [facility] [id number]) Special Tests Knee Special Tests Patellar Grind Test Test Results positive kathryn Valgus- 25 Degrees Test Results + laxity left vs right Anterior Draw Test Results + laxity left vs right PT-OP-M Strength Start: 01/10/24 15:52 Freq: Status: Active Protocol: Document 01/11/24 13:44 [facility] (Rec: 01/15/24 11:08 [facility] [id number]) Hip Strength Hip Manual Muscle Testing kathryn Flexion (L2) 4 Good Extension (S1) 4 Good Abduction 4 Good Adduction 4 Good External Rotation 4 Good Internal Rotation 4 Good Knee Strength Knee Manual Muscle Testing Left Flexion (S2) 4- Good- Extension (L3) 4- Good- Right Flexion (S2) 4+ Good+ Extension (L3) 4+ Good+ Ankle/Foot Strength Ankle and Foot Manual Muscle Testing Right Dorsiflexion (L4) 4+ Good+ Plantarflexion (S1) 4+ Good+ Left Dorsiflexion (L4) 4 Good Plantarflexion (S1) 4- Good- PT-OP-Q Treatments Start: 01/10/24 15:52 Freq: Status: Active Protocol: Document 02/15/24 11:59 AB (Rec: 02/15/24 16:28 AB [id number]) Therapeutic Exercises Supine Exercises hamstring stretch Side bilateral Reps/Minutes 60 sec each LE Comments verbal cues Sidelying Exercises hip ad Sidelying Exercise Name HEP hip ab Sidelying Exercise Name HEP Resistance level one band Reps/Minutes X10 Standing Exercises glute med activation Standing Exercise Name at wall Side bilateral Equipment Used HEP Reps/Minutes one minute Comments verbal and visual cues fwd/back Standing Exercise Name monster walk Equipment Used L2 TB ankles Reps/Minutes 3 minutes Comments added to HEP Squat Standing Exercise Name Verbal cues to squat to depth that does not increase pain Equipment Used L3 TB distal thighs Reps/Minutes 10x2 Comments added to HEP Therapeutic Activity Therapeutic Activity kneeling Name quadruped and high kneeling Reps/Minutes X3 Comments Trials start, and post manual techniques. Patient with high kneeling and sitting on feet persists. Manual Therapy Treatment Consent Patient gave verbal consent for manual Yes treatment Soft Tissue Mobilization left knee Body Location for swelling Mobilization Type Other Intensity/Depth Moderate Body Position Hooklying Comments LE elevated above heart also superfical Verbal cues for breathing from diaphragm PT-OP-R Modalities Start: 01/10/24 15:52 Freq: Status: Active Protocol: Document 01/11/24 13:44 SAK (Rec: 01/15/24 11:08 SAK [id number]) Hot Pack/Cold Pack Treatment Cold Pack Location kathryn knees Patient Position Hooklying Patient Tolerance Good Comments legs elevated. PT-OP-T Assessment and Plan Start: 01/10/24 15:52 Freq: Status: Active Protocol: Document 02/15/24 11:59 AB (Rec: 02/15/24 16:28 AB [id number]) Physical Therapy Assessment Goals Four Impairment strength and flexibility impairments LE's left greater than right Short Term Goal (STG) Patient to be instructed in HEP for purposes of LE strengthening and flexibility STG Duration 02/11/24 Package Designer Goal (LTG) Patient to be independent and compliant with HEP and demonstrate flexiblity WNL and strength 5/5 kathryn LE's to allow her to return to prior level of functio LTG Duration 03/12/24 Three Impairment swelling left knee Package Designer Goal (LTG) decrease swelling left knee to within 1 cm circumferential measurement as compared to right to promote improved right knee function LTG Duration 03/12/24 Two Impairment LEFS (lower extremity functional scale) 76% Short Term Goal (STG) Improve LEFS to at least 85% as measure of improved knee function and activity tolerance STG Duration 02/11/24 Care Home Goal (LTG) Improve LEFS to at least 90% as measure of improved knee function and activity tolerance LTG Duration 03/12/24 One Impairment knee pain left greater than right as high as 7/10 Short Term Goal (STG) Decrease pain to no greater than 4/10 with all usual activities STG Duration 02/11/24 Care Home Goal (LTG) Decrease pain to no greater than 2/10 with all usual activities including walking on level surfaces and uneven surfaces moving from sit to stand LTG Duration 03/12/24 Assessment Summary Assessment Patricial rates right knee pain 4/10 end of session, continues to complain of pain in high kneeling to sitting on feet position. Physical Therapy Plan Frequency and Duration Frequency of Treatment 2x/Week Duration of treatment (weeks) 8 Plan of Care Start Date 01/11/24 Plan of Care End Date 03/12/24 Therapeutic Interventions Therapeutic Interventions Gait Training,Home Exercise Program,Manual Therapy, Neuromuscular Re-education, Patient/Caregiver Education, Self-Care/Home Management,Soft Tissue Mobilization,Taping, Therapeutic Activities, Therapeutic Exercises Modalities Cold Pack/Ice Massage,Electric Stimulation,Hot Packs, Ultrasound Next Visit Focus/Plan Next Note Type Treatment Note Next Visit Plan Revisit step-ups 4 in front of mirror/ possibly lateral Review squats/assess depth justice . Possibly assess balance, progress side step/monster walk with band as able
--- NOTE | 2024-02-20 16:17 | PT.OTN ---
Current Diagnoses Pain in right knee (02/20/24) Pain in left knee (02/20/24) Soft tissue disorder, unspecified (02/20/24) Difficulty in walking, not elsewhere classified (02/20/24) Weakness (02/20/24) Physical Therapy Treatment Note PT-OP-A Visit Information Start: 01/10/24 15:52 Freq: Status: Active Protocol: Document 02/20/24 11:32 SAK (Rec: 02/20/24 12:31 [facility] [id number]) Out-Patient Physical Therapy Visit Information Visit Information Visit Type Treatment Note Visit Start Time 11:32 Visit Stop Time 12:25 Visit Number 7 Number of MAIL HANDLER EQUIPMENT OPERATOR Visits 0 Evaluation Information Evaluation Date 01/11/24 PT-OP-B Current Condition Start: 01/10/24 15:52 Freq: Status: Active Protocol: Document 02/06/24 13:01 SAK (Rec: 02/06/24 13:47 [facility] [id number]) Current Condition History of Current Condition Onset Date August 2023 Current Complaints kathryn knee pain left greater than right History of Current Condition 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 30 years ago hurt left knee skiing downhill , wasn't treated. Now walks [address] [place] 1 day per week 3 1/2 miles, other days walking downhill to [facility], then uphill. In August of this year was late to meet and decided to run, and it was downhill, has not felt well since then. Most recently hiking her left knee feels unstable. Now pain starts bottom of kneecap, moves around often to top of kneecap. Not able to take long walks right now due to pain and instabilityStates squatting causes the worst pain. Neighbor who is a PT gave her 45 degree wall squats and short arc quads. States she is horribly bad at stretching. Has history of plantar fascitis Prior Treatments and Tests x-rays; medial compartment Future Testing and Treatments Planned none at this time Treatment Goals Patient/Caregiver Goals minimize pain, and be able to return to walking 3 1/2 miles per day and all other distances without difficulty Current Functional Impairments (Reported) Functional Limitations- ADL's painful Functional Limitations- Mobility/Gait limited distances, feeling of instability PT-OP-C Subjective Start: 01/10/24 15:52 Freq: Status: Active Protocol: Document 02/20/24 11:32 SAK (Rec: 02/20/24 12:31 [facility] [id number]) OP-PT Subjective Patient Comments Patient Comments Didn't walk over weekend, hasnt yet today. Got on her knees on folded mat to clean the floor and reports increase in pain. Thinks tape helpful . Cracking and popping not so much. Has used some ice. Just got a recumbant bike PT-OP-D Balance Start: 01/10/24 15:52 Freq: Status: Active Protocol: Document 01/11/24 13:44 SAK (Rec: 01/15/24 11:08 [facility] [id number]) OP-PT Balance Assessment Sitting Balance Static Sitting Balance Ability Normal Dynamic Sitting Balance Ability Normal Standing Balance Static Standing Balance Ability Normal Dynamic Standing Balance Ability Normal Michel Fall Scale Copyright Permission PT-OP-G Mobility & Gait Start: 01/10/24 15:52 Freq: Status: Active Protocol: Document 01/11/24 13:44 [facility] (Rec: 01/15/24 11:08 [facility] [id number]) OP Gait Assessment Gait Gait Assistance Required: Independent Able to Maintain Weight Bearing Status Yes During Gait Assistive Devices Assistive Device None Gait Deviations General Gait Pattern Antalgic Factors Limiting Gait Function Factors Limiting Gait Function Pain Comments Gait Comments swelling Stair Climbing Evaluation Evaluation Level of Assist On Stairs Independent Devices Stair Climbing Assistive Devices Left Railing,Right Railing Technique/Endurance Stair Climbing Direction Ascend and Descend Stair Climbing Technique Step to Step PT-OP-H Neuro Start: 01/10/24 15:52 Freq: Status: Active Protocol: Document 01/11/24 13:44 SAK (Rec: 01/15/24 11:08 [facility] [id number]) Sensation Evaluation Gross Sensation Gross Sensation WNL PT-OP-J Posture/Palpation/Skin Start: 01/10/24 15:52 Freq: Status: Active Protocol: Document 01/11/24 13:44 SAK (Rec: 01/15/24 11:08 [facility] [id number]) Posture Evaluation Position Standing Pelvis Posture Anteriorly Tilted Knee Posture (L) Genu Valgus,(R) Genu Valgus Patellar Posture (L) Laterally Tilted,(R) Laterally Tilted Ankle/Foot Posture (L) Pronated Foot Arch (L) Low Arch PT-OP-K Range of Motion Start: 01/10/24 15:52 Freq: Status: Active Protocol: Document 01/11/24 13:44 [facility] (Rec: 01/15/24 11:08 [facility] [id number]) Knee Goniometric Range of Motion Knee Left Flexion Active (degrees) 110 Extension Active (degrees) 5 Right Knee ROM WFL Yes Knee ROM Limitations Knee ROM Limitations Pain,Swelling Ankle and Foot Goniometric Range of Motion Ankle and Foot kathryn Dorsiflexion with Knee Flexed 5 Dorsiflexion with Knee Extended 0 Ankle and Foot ROM Limitations ROM Limitations Soft Tissue Tightness PT-OP-L Special Tests Start: 01/10/24 15:52 Freq: Status: Active Protocol: Document 01/11/24 13:44 [facility] (Rec: 01/15/24 11:08 [facility] [id number]) Special Tests Knee Special Tests Patellar Grind Test Test Results positive kathryn Valgus- 25 Degrees Test Results + laxity left vs right Anterior Draw Test Results + laxity left vs right PT-OP-M Strength Start: 01/10/24 15:52 Freq: Status: Active Protocol: Document 01/11/24 13:44 [facility] (Rec: 01/15/24 11:08 [facility] [id number]) Hip Strength Hip Manual Muscle Testing kathryn Flexion (L2) 4 Good Extension (S1) 4 Good Abduction 4 Good Adduction 4 Good External Rotation 4 Good Internal Rotation 4 Good Knee Strength Knee Manual Muscle Testing Left Flexion (S2) 4- Good- Extension (L3) 4- Good- Right Flexion (S2) 4+ Good+ Extension (L3) 4+ Good+ Ankle/Foot Strength Ankle and Foot Manual Muscle Testing Right Dorsiflexion (L4) 4+ Good+ Plantarflexion (S1) 4+ Good+ Left Dorsiflexion (L4) 4 Good Plantarflexion (S1) 4- Good- PT-OP-Q Treatments Start: 01/10/24 15:52 Freq: Status: Active Protocol: Document 02/20/24 11:32 SAK (Rec: 02/20/24 12:31 [facility] [id number]) Gym Equipment Shuttle Recovery Unilateral Squats Resistance 25 Reps/Time 5x, some distal quad pain left Bilateral Squats Details cues for LE alignment, some distal quad pain left Resistance 50 Reps/Time 10x Therapeutic Exercises Supine Exercises bridge Equipment Used ball between knees Reps/Minutes 10x SAQ Resistance 2# Reps/Minutes 10x SLR Supine Exercise Name HEP review Reps/Minutes 10x Standing Exercises sit to stand Standing Exercise Name chair squad Side bilateral Reps/Minutes 5x Comments trial with ball between knees, inc pain Manual Therapy Treatment Soft Tissue Mobilization left knee Body Location distal quad left Mobilization Type Instrument Assisted,Myofascial Release,Strumming Intensity/Depth Deep Body Position Hooklying Comments massage roller (Theraband) Taping left knee Treatment Focus improve patellar glide, dec pain Type of Tape Kinesiotape Comments 1 Y strip base medial left knee , with tails sup and inf patella crossed lateral to patella to facil medial glide 75% stretch 2 Y strips inf and distal patella with tails med and lat patella [ End ] PT-OP-R Modalities Start: 01/10/24 15:52 Freq: Status: Active Protocol: Document 02/20/24 11:32 [facility] (Rec: 02/20/24 15:48 [facility] [id number]) Hot Pack/Cold Pack Treatment Cold Pack Location kathryn knees Patient Position Hooklying Patient Tolerance Good Comments legs elevated. PT-OP-T Assessment and Plan Start: 01/10/24 15:52 Freq: Status: Active Protocol: Document 02/20/24 11:32 SAK (Rec: 02/20/24 12:31 [facility] [id number]) Physical Therapy Assessment Goals Four Impairment strength and flexibility impairments LE's left greater than right Short Term Goal (STG) Patient to be instructed in HEP for purposes of LE strengthening and flexibility 02/20/24: goal met, ongoing progression STG Duration goal met Small Business Sales Representative Goal (LTG) Patient to be independent and compliant with HEP and demonstrate flexiblity WNL and strength 5/5 kathryn LE's to allow her to return to prior level of functio LTG Duration 03/12/24 Three Impairment swelling left knee Retirement Goal (LTG) decrease swelling left knee to within 1 cm circumferential measurement as compared to right to promote improved right knee function 02/20/24: min goal progress LTG Duration 03/12/24 Two Impairment LEFS (lower extremity functional scale) 76% Short Term Goal (STG) Improve LEFS to at least 85% as measure of improved knee function and activity tolerance 02/20/24: no significant progress STG Duration 02/11/24 Small Business Sales Representative Goal (LTG) Improve LEFS to at least 90% as measure of improved knee function and activity tolerance LTG Duration 03/12/24 One Impairment knee pain left greater than right as high as 7/10 Short Term Goal (STG) Decrease pain to no greater than 4/10 with all usual activities 02/20/24: min goal progress STG Duration 02/11/24 Small Business Sales Representative Goal (LTG) Decrease pain to no greater than 2/10 with all usual activities including walking on level surfaces and uneven surfaces moving from sit to stand LTG Duration 03/12/24 Assessment Summary Assessment Patient pain inconsistent, min improvement in pain level, feel she may benefit from further imaging. She is going to request an MRI from physician. Pain can vary from 0-7/10. She is consistent with HEP. We did update HEP with SAQ and bridge with ball between knees. She has tightness distal quads, deep tissue mobilization performed. Encourage ice after exercise . Physical Therapy Plan Frequency and Duration Frequency of Treatment 2x/Week Duration of treatment (weeks) 8 Plan of Care Start Date 01/11/24 Plan of Care End Date 03/12/24 Therapeutic Interventions Therapeutic Interventions Gait Training,Home Exercise Program,Manual Therapy, Neuromuscular Re-education, Patient/Caregiver Education, Self-Care/Home Management,Soft Tissue Mobilization,Taping, Therapeutic Activities, Therapeutic Exercises Modalities Cold Pack/Ice Massage,Electric Stimulation,Hot Packs, Ultrasound Next Visit Focus/Plan Next Note Type Treatment Note Next Visit Plan Revisit step-ups 4 in front of mirror/ possibly lateral Review squats/assess depth justice . Progress side step/monster walk with band as able, add to HEP. Check prox and distal tib/fib mobility
--- NOTE | 2024-02-28 12:00 | PT.OTN ---
Current Diagnoses Pain in right knee (02/28/24) Pain in left knee (02/28/24) Soft tissue disorder, unspecified (02/28/24) Difficulty in walking, not elsewhere classified (02/28/24) Weakness (02/28/24) Physical Therapy Treatment Note PT-OP-A Visit Information Start: 01/10/24 15:52 Freq: Status: Active Protocol: Document 02/28/24 10:47 AB (Rec: 02/28/24 12:00 AB [id number]) Out-Patient Physical Therapy Visit Information Visit Information Visit Type Treatment Note Visit Note [email or web address] Access code Visit Start Time 10:49 Visit Stop Time 11:42 Visit Number 8 Number of STAFF OCCUPATIONAL THERAPIST Visits 1 Evaluation Information Evaluation Date 01/11/24 PT-OP-B Current Condition Start: 01/10/24 15:52 Freq: Status: Active Protocol: Document 02/06/24 13:01 SAK (Rec: 02/06/24 13:47 SAK [id number]) Current Condition History of Current Condition Onset Date August 2023 Current Complaints kathryn knee pain left greater than right History of Current Condition 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 30 years ago hurt left knee skiing downhill , wasn't treated. Now walks [address] at [place] 1 day per week 3 1/2 miles, other days walking downhill to [facility], then uphill. In August of this year was late to meet and decided to run, and it was downhill, has not felt well since then. Most recently hiking her left knee feels unstable. Now pain starts bottom of kneecap, moves around often to top of kneecap. Not able to take long walks right now due to pain and instabilityStates squatting causes the worst pain. Neighbor who is a PT gave her 45 degree wall squats and short arc quads. States she is horribly bad at stretching. Has history of plantar fascitis Prior Treatments and Tests x-rays; medial compartment Future Testing and Treatments Planned none at this time Treatment Goals Patient/Caregiver Goals minimize pain, and be able to return to walking 3 1/2 miles per day and all other distances without difficulty Current Functional Impairments (Reported) Functional Limitations- ADL's painful Functional Limitations- Mobility/Gait limited distances, feeling of instability PT-OP-C Subjective Start: 01/10/24 15:52 Freq: Status: Active Protocol: Document 02/28/24 10:47 AB (Rec: 02/28/24 12:00 AB [id number]) OP-PT Subjective Patient Comments Patient Comments Patient reports she did her exercises only 4 days since last here due to spouse hospitalized, due to pneumonia . Patient reports she was hobbling around the hospital, also hobbling around on Monday, iced yesterday. Patient rates pain 3/10 at rest Left knee lacking 31 deg hamstring AROM measured 90/90 position, AROM knee extension supine 0 left knee with reports of pain inf patella. great toe2.5 cm to wall with knee to wall PROM body over ankle DF left ankle, right great toe 2 cm from the wall. tib stiff posteriorly distal and prox AP and PA, fib with tenderness PA proximally. Reports left knee pain at 50 deg flexion during squat. PT-OP-D Balance Start: 01/10/24 15:52 Freq: Status: Active Protocol: Document 01/11/24 13:44 SAK (Rec: 01/15/24 11:08 [facility] [id number]) OP-PT Balance Assessment Sitting Balance Static Sitting Balance Ability Normal Dynamic Sitting Balance Ability Normal Standing Balance Static Standing Balance Ability Normal Dynamic Standing Balance Ability Normal Michel Fall Scale Copyright Permission PT-OP-G Mobility & Gait Start: 01/10/24 15:52 Freq: Status: Active Protocol: Document 01/11/24 13:44 SAK (Rec: 01/15/24 11:08 [facility] [id number]) OP Gait Assessment Gait Gait Assistance Required: Independent Able to Maintain Weight Bearing Status Yes During Gait Assistive Devices Assistive Device None Gait Deviations General Gait Pattern Antalgic Factors Limiting Gait Function Factors Limiting Gait Function Pain Comments Gait Comments swelling Stair Climbing Evaluation Evaluation Level of Assist On Stairs Independent Devices Stair Climbing Assistive Devices Left Railing,Right Railing Technique/Endurance Stair Climbing Direction Ascend and Descend Stair Climbing Technique Step to Step PT-OP-H Neuro Start: 01/10/24 15:52 Freq: Status: Active Protocol: Document 01/11/24 13:44 SAK (Rec: 01/15/24 11:08 SAK [id number]) Sensation Evaluation Gross Sensation Gross Sensation WNL PT-OP-J Posture/Palpation/Skin Start: 01/10/24 15:52 Freq: Status: Active Protocol: Document 01/11/24 13:44 [facility] (Rec: 01/15/24 11:08 [facility] [id number]) Posture Evaluation Position Standing Pelvis Posture Anteriorly Tilted Knee Posture (L) Genu Valgus,(R) Genu Valgus Patellar Posture (L) Laterally Tilted,(R) Laterally Tilted Ankle/Foot Posture (L) Pronated Foot Arch (L) Low Arch PT-OP-K Range of Motion Start: 01/10/24 15:52 Freq: Status: Active Protocol: Document 01/11/24 13:44 [facility] (Rec: 01/15/24 11:08 [facility] [id number]) Knee Goniometric Range of Motion Knee Left Flexion Active (degrees) 110 Extension Active (degrees) 5 Right Knee ROM WFL Yes Knee ROM Limitations Knee ROM Limitations Pain,Swelling Ankle and Foot Goniometric Range of Motion Ankle and Foot kathryn Dorsiflexion with Knee Flexed 5 Dorsiflexion with Knee Extended 0 Ankle and Foot ROM Limitations ROM Limitations Soft Tissue Tightness PT-OP-L Special Tests Start: 01/10/24 15:52 Freq: Status: Active Protocol: Document 01/11/24 13:44 [facility] (Rec: 01/15/24 11:08 [facility] [id number]) Special Tests Knee Special Tests Patellar Grind Test Test Results positive kathryn Valgus- 25 Degrees Test Results + laxity left vs right Anterior Draw Test Results + laxity left vs right PT-OP-M Strength Start: 01/10/24 15:52 Freq: Status: Active Protocol: Document 01/11/24 13:44 [facility] (Rec: 01/15/24 11:08 [facility] [id number]) Hip Strength Hip Manual Muscle Testing kathryn Flexion (L2) 4 Good Extension (S1) 4 Good Abduction 4 Good Adduction 4 Good External Rotation 4 Good Internal Rotation 4 Good Knee Strength Knee Manual Muscle Testing Left Flexion (S2) 4- Good- Extension (L3) 4- Good- Right Flexion (S2) 4+ Good+ Extension (L3) 4+ Good+ Ankle/Foot Strength Ankle and Foot Manual Muscle Testing Right Dorsiflexion (L4) 4+ Good+ Plantarflexion (S1) 4+ Good+ Left Dorsiflexion (L4) 4 Good Plantarflexion (S1) 4- Good- PT-OP-Q Treatments Start: 01/10/24 15:52 Freq: Status: Active Protocol: Document 02/28/24 10:47 AB (Rec: 02/28/24 12:00 AB [id number]) Therapeutic Exercises Supine Exercises hamstring stretch Supine Exercise Name HEP Side bilateral Reps/Minutes 60 X2sec each LE Comments verbal cues Standing Exercises Squat Standing Exercise Name Verbal cues to squat to depth that does not increase pain Equipment Used L3 TB distal thighs Reps/Minutes 10x Comments added to HEP*previously gastroc stretch Standing Exercise Name standing at wall also soleus Side bilateral Equipment Used HEP Reps/Minutes 60 X 1 each stretch each LE Comments first trial of soleus on left not justice, justice post jt mobilzations at ankle Manual Therapy Treatment Soft Tissue Mobilization left knee Body Location distal quad left, HS and proximal calf Mobilization Type Cross-Friction,Myofascial Release,Rolling Intensity/Depth Moderate Body Position Hooklying Comments and superficial Joint Mobilizations Mulligan with movement TC Joint right TC Direction AP Grade IV Body Position Standing Reps/Duration X10 X 3 tib fib distal Direction AP and PA Grade IV Body Position Supine Reps/Duration X10 Patellar mobilizations Joint left patella Direction inf, sup, CW CCW, med and lat Grade IV Reps/Duration 5X 2 for all but CW and CCW 5X 4 Comments most restricted CCW PT-OP-R Modalities Start: 01/10/24 15:52 Freq: Status: Active Protocol: Document 02/20/24 11:32 SAK (Rec: 02/20/24 15:48 SAK [id number]) Hot Pack/Cold Pack Treatment Cold Pack Location kathryn knees Patient Position Hooklying Patient Tolerance Good Comments legs elevated. PT-OP-T Assessment and Plan Start: 01/10/24 15:52 Freq: Status: Active Protocol: Document 02/28/24 10:47 AB (Rec: 02/28/24 12:00 AB [id number]) Physical Therapy Assessment Goals Four Impairment strength and flexibility impairments LE's left greater than right Short Term Goal (STG) Patient to be instructed in HEP for purposes of LE strengthening and flexibility 02/20/24: goal met, ongoing progression STG Duration goal met Supervisor Quality Control Goal (LTG) Patient to be independent and compliant with HEP and demonstrate flexiblity WNL and strength 5/5 kathryn LE's to allow her to return to prior level of functio LTG Duration 03/12/24 Three Impairment swelling left knee Supervisor Quality Control Goal (LTG) decrease swelling left knee to within 1 cm circumferential measurement as compared to right to promote improved right knee function 02/20/24: min goal progress LTG Duration 03/12/24 Two Impairment LEFS (lower extremity functional scale) 76% Short Term Goal (STG) Improve LEFS to at least 85% as measure of improved knee function and activity tolerance 02/20/24: no significant progress STG Duration 02/11/24 Supervisor Quality Control Goal (LTG) Improve LEFS to at least 90% as measure of improved knee function and activity tolerance LTG Duration 03/12/24 One Impairment knee pain left greater than right as high as 7/10 Short Term Goal (STG) Decrease pain to no greater than 4/10 with all usual activities 02/20/24: min goal progress STG Duration 02/11/24 Supervisor Quality Control Goal (LTG) Decrease pain to no greater than 2/10 with all usual activities including walking on level surfaces and uneven surfaces moving from sit to stand LTG Duration 03/12/24 Assessment Summary Assessment Patient able to perform soleus stretch with reports of no knee pain, only sensation of stretch in calf, post TC and tib fib mobilzations. Physical Therapy Plan Frequency and Duration Frequency of Treatment 2x/Week Duration of treatment (weeks) 8 Plan of Care Start Date 01/11/24 Plan of Care End Date 03/12/24 Next Visit Focus/Plan Next Note Type Treatment Note Next Visit Plan Revisit step-ups 4 in front of mirror/ possibly lateral Reassess squats/assess depth justice. Progress side step/ monster walk with band as able , add to HEP. Possibly revisit tib/fib and TC mobs..
--- NOTE | 2024-03-01 16:33 | PT.OTN ---
Current Diagnoses Pain in right knee (03/01/24) Pain in left knee (03/01/24) Soft tissue disorder, unspecified (03/01/24) Difficulty in walking, not elsewhere classified (03/01/24) Weakness (03/01/24) Physical Therapy Treatment Note PT-OP-A Visit Information Start: 01/10/24 15:52 Freq: Status: Active Protocol: Document 03/01/24 14:35 AB (Rec: 03/01/24 16:33 AB [id number]) Out-Patient Physical Therapy Visit Information Visit Information Visit Type Treatment Note Visit Note [id number] Access code Visit Start Time 14:35 Visit Stop Time 15:13 Visit Number 9 Number of ELECTRICAL SYSTEMS DESIGNER Visits 2 Evaluation Information Evaluation Date 01/11/24 PT-OP-B Current Condition Start: 01/10/24 15:52 Freq: Status: Active Protocol: Document 02/06/24 13:01 SAK (Rec: 02/06/24 13:47 SAK [id number]) Current Condition History of Current Condition Onset Date August 2023 Current Complaints kathryn knee pain left greater than right History of Current Condition 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 30 years ago hurt left knee skiing downhill , wasn't treated. Now walks [address] at [place] 1 day per week 3 1/2 miles, other days walking downhill to [facility], then uphill. In August of this year was late to meet and decided to run, and it was downhill, has not felt well since then. Most recently hiking her left knee feels unstable. Now pain starts bottom of kneecap, moves around often to top of kneecap. Not able to take long walks right now due to pain and instabilityStates squatting causes the worst pain. Neighbor who is a PT gave her 45 degree wall squats and short arc quads. States she is horribly bad at stretching. Has history of plantar fascitis Prior Treatments and Tests x-rays; medial compartment Future Testing and Treatments Planned none at this time Treatment Goals Patient/Caregiver Goals minimize pain, and be able to return to walking 3 1/2 miles per day and all other distances without difficulty Current Functional Impairments (Reported) Functional Limitations- ADL's painful Functional Limitations- Mobility/Gait limited distances, feeling of instability PT-OP-C Subjective Start: 01/10/24 15:52 Freq: Status: Active Protocol: Document 03/01/24 14:35 AB (Rec: 03/01/24 16:33 AB [id number]) OP-PT Subjective Patient Comments Patient Comments Patient reports she hasn't been able to walk much since previous session. Patient rates knee pain 3/10 start of session. PT-OP-D Balance Start: 01/10/24 15:52 Freq: Status: Active Protocol: Document 01/11/24 13:44 SAK (Rec: 01/15/24 11:08 [facility] [id number]) OP-PT Balance Assessment Sitting Balance Static Sitting Balance Ability Normal Dynamic Sitting Balance Ability Normal Standing Balance Static Standing Balance Ability Normal Dynamic Standing Balance Ability Normal Michel Fall Scale Copyright Permission PT-OP-G Mobility & Gait Start: 01/10/24 15:52 Freq: Status: Active Protocol: Document 01/11/24 13:44 SAK (Rec: 01/15/24 11:08 [facility] [id number]) OP Gait Assessment Gait Gait Assistance Required: Independent Able to Maintain Weight Bearing Status Yes During Gait Assistive Devices Assistive Device None Gait Deviations General Gait Pattern Antalgic Factors Limiting Gait Function Factors Limiting Gait Function Pain Comments Gait Comments swelling Stair Climbing Evaluation Evaluation Level of Assist On Stairs Independent Devices Stair Climbing Assistive Devices Left Railing,Right Railing Technique/Endurance Stair Climbing Direction Ascend and Descend Stair Climbing Technique Step to Step PT-OP-H Neuro Start: 01/10/24 15:52 Freq: Status: Active Protocol: Document 01/11/24 13:44 SAK (Rec: 01/15/24 11:08 [facility] [id number]) Sensation Evaluation Gross Sensation Gross Sensation WNL PT-OP-J Posture/Palpation/Skin Start: 01/10/24 15:52 Freq: Status: Active Protocol: Document 01/11/24 13:44 SAK (Rec: 01/15/24 11:08 [facility] [id number]) Posture Evaluation Position Standing Pelvis Posture Anteriorly Tilted Knee Posture (L) Genu Valgus,(R) Genu Valgus Patellar Posture (L) Laterally Tilted,(R) Laterally Tilted Ankle/Foot Posture (L) Pronated Foot Arch (L) Low Arch PT-OP-K Range of Motion Start: 01/10/24 15:52 Freq: Status: Active Protocol: Document 01/11/24 13:44 [facility] (Rec: 01/15/24 11:08 [facility] [id number]) Knee Goniometric Range of Motion Knee Left Flexion Active (degrees) 110 Extension Active (degrees) 5 Right Knee ROM WFL Yes Knee ROM Limitations Knee ROM Limitations Pain,Swelling Ankle and Foot Goniometric Range of Motion Ankle and Foot kathryn Dorsiflexion with Knee Flexed 5 Dorsiflexion with Knee Extended 0 Ankle and Foot ROM Limitations ROM Limitations Soft Tissue Tightness PT-OP-L Special Tests Start: 01/10/24 15:52 Freq: Status: Active Protocol: Document 01/11/24 13:44 [facility] (Rec: 01/15/24 11:08 [facility] [id number]) Special Tests Knee Special Tests Patellar Grind Test Test Results positive kathryn Valgus- 25 Degrees Test Results + laxity left vs right Anterior Draw Test Results + laxity left vs right PT-OP-M Strength Start: 01/10/24 15:52 Freq: Status: Active Protocol: Document 01/11/24 13:44 [facility] (Rec: 01/15/24 11:08 [facility] [id number]) Hip Strength Hip Manual Muscle Testing kathryn Flexion (L2) 4 Good Extension (S1) 4 Good Abduction 4 Good Adduction 4 Good External Rotation 4 Good Internal Rotation 4 Good Knee Strength Knee Manual Muscle Testing Left Flexion (S2) 4- Good- Extension (L3) 4- Good- Right Flexion (S2) 4+ Good+ Extension (L3) 4+ Good+ Ankle/Foot Strength Ankle and Foot Manual Muscle Testing Right Dorsiflexion (L4) 4+ Good+ Plantarflexion (S1) 4+ Good+ Left Dorsiflexion (L4) 4 Good Plantarflexion (S1) 4- Good- PT-OP-Q Treatments Start: 01/10/24 15:52 Freq: Status: Active Protocol: Document 03/01/24 14:35 AB (Rec: 03/01/24 16:33 AB [id number]) Therapeutic Exercises Supine Exercises hamstring stretch Supine Exercise Name HEP Side bilateral Reps/Minutes 60 X2sec each LE Comments VC for toes to face IE DF Standing Exercises Squat Standing Exercise Name Verbal cues to squat to depth that does not increase pain Equipment Used L3 TB distal thighs Reps/Minutes 10x Comments Monitored for depth of justice gastroc stretch Standing Exercise Name standing at wall also soleus Side bilateral Equipment Used HEP Reps/Minutes 60 X 2 each stretch each LE heel raises Standing Exercise Name bilateral Reps/Minutes X10 Comments review, pt reports hasn't been performing due to pain after perf w/o shoes Manual Therapy Treatment Soft Tissue Mobilization left knee Body Location distal quad left, HS and proximal calf Mobilization Type Cross-Friction,Myofascial Release,Rolling Intensity/Depth Moderate Body Position Hooklying Comments and superficial prone for calf muscle distal and proximal Joint Mobilizations Mulligan with movement TC Joint right TC Direction AP Grade IV Body Position Standing Reps/Duration X10 X 3 tib fib distal Direction AP and PA Grade IV Body Position Supine Reps/Duration X10 PT-OP-R Modalities Start: 01/10/24 15:52 Freq: Status: Active Protocol: Document 02/20/24 11:32 SAK (Rec: 02/20/24 15:48 SAK [id number]) Hot Pack/Cold Pack Treatment Cold Pack Location kathryn knees Patient Position Hooklying Patient Tolerance Good Comments legs elevated. PT-OP-T Assessment and Plan Start: 01/10/24 15:52 Freq: Status: Active Protocol: Document 03/01/24 14:35 AB (Rec: 03/01/24 16:33 AB [id number]) Physical Therapy Assessment Goals Four Impairment strength and flexibility impairments LE's left greater than right Short Term Goal (STG) Patient to be instructed in HEP for purposes of LE strengthening and flexibility 02/20/24: goal met, ongoing progression STG Duration goal met Staff Nuclear Medicine Technologist Goal (LTG) Patient to be independent and compliant with HEP and demonstrate flexiblity WNL and strength 5/5 kathryn LE's to allow her to return to prior level of functio LTG Duration 03/12/24 Three Impairment swelling left knee Staff Nuclear Medicine Technologist Goal (LTG) decrease swelling left knee to within 1 cm circumferential measurement as compared to right to promote improved right knee function 02/20/24: min goal progress LTG Duration 03/12/24 Two Impairment LEFS (lower extremity functional scale) 76% Short Term Goal (STG) Improve LEFS to at least 85% as measure of improved knee function and activity tolerance 02/20/24: no significant progress STG Duration 02/11/24 Detention Goal (LTG) Improve LEFS to at least 90% as measure of improved knee function and activity tolerance LTG Duration 03/12/24 One Impairment knee pain left greater than right as high as 7/10 Short Term Goal (STG) Decrease pain to no greater than 4/10 with all usual activities 02/20/24: min goal progress STG Duration 02/11/24 Detention Goal (LTG) Decrease pain to no greater than 2/10 with all usual activities including walking on level surfaces and uneven surfaces moving from sit to stand LTG Duration 03/12/24 Assessment Summary Assessment Patient able to squat to 70 deg knee flexion when left knee pain starts per patient post manual and exercise. Trial start of previous session pain at 50 deg flexion . Physical Therapy Plan Frequency and Duration Frequency of Treatment 2x/Week Duration of treatment (weeks) 8 Plan of Care Start Date 01/11/24 Plan of Care End Date 03/12/24 Next Visit Focus/Plan Next Note Type Treatment Note Next Visit Plan Revisit step-ups 4 in front of mirror/ possibly lateral Reassess squats/assess depth justice. Progress side step/ monster walk with band as able , add to HEP. Possibly revisit tib/fib and TC mobs..
--- NOTE | 2024-03-06 14:11 | PT.OPPN ---
Current Diagnoses Pain in right knee (03/06/24) Pain in left knee (03/06/24) Soft tissue disorder, unspecified (03/06/24) Difficulty in walking, not elsewhere classified (03/06/24) Weakness (03/06/24) Physical Therapy Progress Note PT-OP-A Visit Information Start: 01/10/24 15:52 Freq: Status: Active Protocol: Document 03/06/24 10:35 SAK (Rec: 03/06/24 11:33 SAK [id number]) Out-Patient Physical Therapy Visit Information Visit Information Visit Type Treatment Note Visit Start Time 14:30 Visit Stop Time 15:25 Visit Number 10 Number of ELEMENTARY LIBRARIAN Visits 0 Evaluation Information Evaluation Date 01/11/24 PT-OP-B Current Condition Start: 01/10/24 15:52 Freq: Status: Active Protocol: Document 03/06/24 10:35 SAK (Rec: 03/06/24 11:33 SAK [id number]) Current Condition History of Current Condition Onset Date August 2023 Current Complaints kathryn knee pain left greater than right History of Current Condition 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 30 years ago hurt left knee skiing downhill , wasn't treated. Now walks [address] at [place] 1 day per week 3 1/2 miles, other days walking downhill to [facility], then uphill. In August of this year was late to meet and decided to run, and it was downhill, has not felt well since then. Most recently hiking her left knee feels unstable. Now pain starts bottom of kneecap, moves around often to top of kneecap. Not able to take long walks right now due to pain and instabilityStates squatting causes the worst pain. Neighbor who is a PT gave her 45 degree wall squats and short arc quads. States she is horribly bad at stretching. Has history of plantar fascitis Prior Treatments and Tests x-rays; medial compartment Future Testing and Treatments Planned none at this time PT-OP-C Subjective Start: 01/10/24 15:52 Freq: Status: Active Protocol: Document 03/06/24 10:35 SAK (Rec: 03/06/24 11:33 SAK [id number]) OP-PT Subjective Patient Comments Patient Comments Not sure if the manual work was helpful, states stretched calves before walking, pain worse. knee very swollen at night often Not sure if PT helpful, not sure what is setting pain off, sometimes, not much pain. Taking Tumeric . Rode exercise bike at home yesterday. To start PT pain . Hasn't heard back regarding imaging. Not sure about taping helpful. PT-OP-D Balance Start: 01/10/24 15:52 Freq: Status: Active Protocol: Document 01/11/24 13:44 [facility] (Rec: 01/15/24 11:08 [facility] [id number]) OP-PT Balance Assessment Sitting Balance Static Sitting Balance Ability Normal Dynamic Sitting Balance Ability Normal Standing Balance Static Standing Balance Ability Normal Dynamic Standing Balance Ability Normal Michel Fall Scale Copyright Permission Anand JM, Anand RM, Varghese SJ. Development of a scale to identify the fall- prone patient. Can J Aging 1989;8;366-7. Jayson Michel (2009). Preventing patient falls. (2nd ed). [place]: Guzman. PT-OP-G Mobility & Gait Start: 01/10/24 15:52 Freq: Status: Active Protocol: Document 01/11/24 13:44 SAK (Rec: 01/15/24 11:08 [facility] [id number]) OP Gait Assessment Gait Gait Assistance Required: Independent Able to Maintain Weight Bearing Status Yes During Gait Assistive Devices Assistive Device None Gait Deviations General Gait Pattern Antalgic Factors Limiting Gait Function Factors Limiting Gait Function Pain Comments Gait Comments swelling Stair Climbing Evaluation Evaluation Level of Assist On Stairs Independent Devices Stair Climbing Assistive Devices Left Railing,Right Railing Technique/Endurance Stair Climbing Direction Ascend and Descend Stair Climbing Technique Step to Step PT-OP-H Neuro Start: 01/10/24 15:52 Freq: Status: Active Protocol: Document 01/11/24 13:44 SAK (Rec: 01/15/24 11:08 [facility] [id number]) Sensation Evaluation Gross Sensation Gross Sensation WNL PT-OP-J Posture/Palpation/Skin Start: 01/10/24 15:52 Freq: Status: Active Protocol: Document 01/11/24 13:44 SAK (Rec: 01/15/24 11:08 [facility] [id number]) Posture Evaluation Position Standing Pelvis Posture Anteriorly Tilted Knee Posture (L) Genu Valgus,(R) Genu Valgus Patellar Posture (L) Laterally Tilted,(R) Laterally Tilted Ankle/Foot Posture (L) Pronated Foot Arch (L) Low Arch PT-OP-K Range of Motion Start: 01/10/24 15:52 Freq: Status: Active Protocol: Document 01/11/24 13:44 [facility] (Rec: 01/15/24 11:08 [facility] [id number]) Knee Goniometric Range of Motion Knee Measured in Degrees Left Flexion Active (degrees) 110 Extension Active (degrees) 5 Right Knee ROM WFL Yes Knee ROM Limitations Knee ROM Limitations Pain,Swelling Ankle and Foot Goniometric Range of Motion Ankle and Foot Measured in Degrees kathryn Dorsiflexion with Knee Flexed 5 Dorsiflexion with Knee Extended 0 Ankle and Foot ROM Limitations ROM Limitations Soft Tissue Tightness PT-OP-L Special Tests Start: 01/10/24 15:52 Freq: Status: Active Protocol: Document 01/11/24 13:44 [facility] (Rec: 01/15/24 11:08 [facility] [id number]) Special Tests Knee Special Tests Patellar Grind Test Test Results positive kathryn Valgus- 25 Degrees Test Results + laxity left vs right Anterior Draw Test Results + laxity left vs right PT-OP-M Strength Start: 01/10/24 15:52 Freq: Status: Active Protocol: Document 01/11/24 13:44 [facility] (Rec: 01/15/24 11:08 [facility] [id number]) Hip Strength Hip Manual Muscle Testing kathryn Flexion (L2) 4 Good Extension (S1) 4 Good Abduction 4 Good Adduction 4 Good External Rotation 4 Good Internal Rotation 4 Good Knee Strength Knee Manual Muscle Testing Left Flexion (S2) 4- Good- Extension (L3) 4- Good- Right Flexion (S2) 4+ Good+ Extension (L3) 4+ Good+ Ankle/Foot Strength Ankle and Foot Manual Muscle Testing Right Dorsiflexion (L4) 4+ Good+ Plantarflexion (S1) 4+ Good+ Left Dorsiflexion (L4) 4 Good Plantarflexion (S1) 4- Good- PT-OP-T Assessment and Plan Start: 01/10/24 15:52 Freq: Status: Active Protocol: Document 03/06/24 10:35 [facility] (Rec: 03/06/24 11:33 [facility] [id number]) Physical Therapy Assessment Goals Four Impairment strength and flexibility impairments LE's left greater than right Short Term Goal (STG) Patient to be instructed in HEP for purposes of LE strengthening and flexibility 02/20/24: goal met, ongoing progression STG Duration goal met Usp Goal (LTG) Patient to be independent and compliant with HEP and demonstrate flexiblity WNL and strength 5/5 kathryn LE's to allow her to return to prior level of functio LTG Duration 03/12/24 Three Impairment swelling left knee Usp Goal (LTG) decrease swelling left knee to within 1 cm circumferential measurement as compared to right to promote improved right knee function 02/20/24: min goal progress LTG Duration 03/12/24 Two Impairment LEFS (lower extremity functional scale) 76% Short Term Goal (STG) Improve LEFS to at least 85% as measure of improved knee function and activity tolerance 02/20/24: no significant progress STG Duration 02/11/24 Vibrating Screed Operator Goal (LTG) Improve LEFS to at least 90% as measure of improved knee function and activity tolerance LTG Duration 03/12/24 One Impairment knee pain left greater than right as high as 7/10 Short Term Goal (STG) Decrease pain to no greater than 4/10 with all usual activities 02/20/24: min goal progress STG Duration 02/11/24 Vibrating Screed Operator Goal (LTG) Decrease pain to no greater than 2/10 with all usual activities including walking on level surfaces and uneven surfaces moving from sit to stand LTG Duration 03/12/24 Physical Therapy Plan Frequency and Duration Frequency of Treatment 2x/Week Duration of treatment (weeks) 8 Plan of Care Start Date 01/11/24 Plan of Care End Date 03/12/24 Next Visit Focus/Plan Next Note Type Treatment Note Next Visit Plan Assess reponse to modified KT tape and increased attention to knee alignment and control, habits of positioning and movement. Further joint mobilizations
--- NOTE | 2024-03-06 16:02 | PT.OTN ---
Current Diagnoses Pain in right knee (03/06/24) Pain in left knee (03/06/24) Soft tissue disorder, unspecified (03/06/24) Difficulty in walking, not elsewhere classified (03/06/24) Weakness (03/06/24) Physical Therapy Treatment Note PT-OP-A Visit Information Start: 01/10/24 15:52 Freq: Status: Active Protocol: Document 03/06/24 10:35 SAK (Rec: 03/06/24 11:33 SAK [id number]) Out-Patient Physical Therapy Visit Information Visit Information Visit Type Treatment Note Visit Start Time 14:30 Visit Stop Time 15:25 Visit Number 10 Number of GUEST SERVICES REPRESENTATIVE Visits 0 Evaluation Information Evaluation Date 01/11/24 PT-OP-B Current Condition Start: 01/10/24 15:52 Freq: Status: Active Protocol: Document 03/06/24 10:35 SAK (Rec: 03/06/24 11:33 SAK [id number]) Current Condition History of Current Condition Onset Date August 2023 Current Complaints kathryn knee pain left greater than right History of Current Condition 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 30 years ago hurt left knee skiing downhill , wasn't treated. Now walks [address] at [place] 1 day per week 3 1/2 miles, other days walking downhill to [facility], then uphill. In August of this year was late to meet and decided to run, and it was downhill, has not felt well since then. Most recently hiking her left knee feels unstable. Now pain starts bottom of kneecap, moves around often to top of kneecap. Not able to take long walks right now due to pain and instabilityStates squatting causes the worst pain. Neighbor who is a PT gave her 45 degree wall squats and short arc quads. States she is horribly bad at stretching. Has history of plantar fascitis Prior Treatments and Tests x-rays; medial compartment Future Testing and Treatments Planned none at this time PT-OP-C Subjective Start: 01/10/24 15:52 Freq: Status: Active Protocol: Document 03/06/24 10:35 SAK (Rec: 03/06/24 11:33 SAK [id number]) OP-PT Subjective Patient Comments Patient Comments Not sure if the manual work was helpful, states stretched calves before walking, pain worse. knee very swollen at night often Not sure if PT helpful, not sure what is setting pain off, sometimes, not much pain. Taking Tumeric . Rode exercise bike at home yesterday. To start PT pain . Hasn't heard back regarding imaging. Not sure about taping helpful. PT-OP-D Balance Start: 01/10/24 15:52 Freq: Status: Active Protocol: Document 01/11/24 13:44 SAK (Rec: 01/15/24 11:08 [facility] [id number]) OP-PT Balance Assessment Sitting Balance Static Sitting Balance Ability Normal Dynamic Sitting Balance Ability Normal Standing Balance Static Standing Balance Ability Normal Dynamic Standing Balance Ability Normal Michel Fall Scale Copyright Permission PT-OP-G Mobility & Gait Start: 01/10/24 15:52 Freq: Status: Active Protocol: Document 01/11/24 13:44 SAK (Rec: 01/15/24 11:08 [facility] [id number]) OP Gait Assessment Gait Gait Assistance Required: Independent Able to Maintain Weight Bearing Status Yes During Gait Assistive Devices Assistive Device None Gait Deviations General Gait Pattern Antalgic Factors Limiting Gait Function Factors Limiting Gait Function Pain Comments Gait Comments swelling Stair Climbing Evaluation Evaluation Level of Assist On Stairs Independent Devices Stair Climbing Assistive Devices Left Railing,Right Railing Technique/Endurance Stair Climbing Direction Ascend and Descend Stair Climbing Technique Step to Step PT-OP-H Neuro Start: 01/10/24 15:52 Freq: Status: Active Protocol: Document 01/11/24 13:44 SAK (Rec: 01/15/24 11:08 [facility] [id number]) Sensation Evaluation Gross Sensation Gross Sensation WNL PT-OP-J Posture/Palpation/Skin Start: 01/10/24 15:52 Freq: Status: Active Protocol: Document 01/11/24 13:44 SAK (Rec: 01/15/24 11:08 [facility] [id number]) Posture Evaluation Position Standing Pelvis Posture Anteriorly Tilted Knee Posture (L) Genu Valgus,(R) Genu Valgus Patellar Posture (L) Laterally Tilted,(R) Laterally Tilted Ankle/Foot Posture (L) Pronated Foot Arch (L) Low Arch PT-OP-K Range of Motion Start: 01/10/24 15:52 Freq: Status: Active Protocol: Document 01/11/24 13:44 [facility] (Rec: 01/15/24 11:08 [facility] [id number]) Knee Goniometric Range of Motion Knee Left Flexion Active (degrees) 110 Extension Active (degrees) 5 Right Knee ROM WFL Yes Knee ROM Limitations Knee ROM Limitations Pain,Swelling Ankle and Foot Goniometric Range of Motion Ankle and Foot kathryn Dorsiflexion with Knee Flexed 5 Dorsiflexion with Knee Extended 0 Ankle and Foot ROM Limitations ROM Limitations Soft Tissue Tightness PT-OP-L Special Tests Start: 01/10/24 15:52 Freq: Status: Active Protocol: Document 01/11/24 13:44 [facility] (Rec: 01/15/24 11:08 [facility] [id number]) Special Tests Knee Special Tests Patellar Grind Test Test Results positive kathryn Valgus- 25 Degrees Test Results + laxity left vs right Anterior Draw Test Results + laxity left vs right PT-OP-M Strength Start: 01/10/24 15:52 Freq: Status: Active Protocol: Document 01/11/24 13:44 [facility] (Rec: 01/15/24 11:08 [facility] [id number]) Hip Strength Hip Manual Muscle Testing kathryn Flexion (L2) 4 Good Extension (S1) 4 Good Abduction 4 Good Adduction 4 Good External Rotation 4 Good Internal Rotation 4 Good Knee Strength Knee Manual Muscle Testing Left Flexion (S2) 4- Good- Extension (L3) 4- Good- Right Flexion (S2) 4+ Good+ Extension (L3) 4+ Good+ Ankle/Foot Strength Ankle and Foot Manual Muscle Testing Right Dorsiflexion (L4) 4+ Good+ Plantarflexion (S1) 4+ Good+ Left Dorsiflexion (L4) 4 Good Plantarflexion (S1) 4- Good- PT-OP-Q Treatments Start: 01/10/24 15:52 Freq: Status: Active Protocol: Document 03/06/24 10:35 [facility] (Rec: 03/06/24 11:33 [facility] [id number]) Therapeutic Exercises Sitting Exercises sit to stand Resistance L2 TB distal thighs Equipment Used mirror for visual feedback Reps/Minutes 10x2 Comments cues for neutral LE alignment Standing Exercises sidestepping Resistance L2 TB distal thighs Reps/Minutes 10 ft x 2 kathryn Gait Training Gait Activity step up Device Used parallel bars Level of Assistance mild UE use, mirror for visual feedback Surface 4 box Distance/Duration 10x Treatment Focus cues for knee tracking toward midline of foot, tends varus Comments much effort to correct alignment Manual Therapy Treatment Consent Patient gave verbal consent for manual Yes treatment Taping left knee Treatment Focus edema reduction Type of Tape Kinesiotape Comments 4 fan strips: 2 posterior crossing behind knee, 2 anterior crossing anerior and lateral knee (paper off tension both with 30 degree bend in knee during application [ End ] PT-OP-R Modalities Start: 01/10/24 15:52 Freq: Status: Active Protocol: Document 03/06/24 10:35 [facility] (Rec: 03/06/24 16:02 [facility] [id number]) Electric Stimulation Electric Stimulation Interferential Current (IFC) Body Location left knee Intensity 16 Target/Sweep Sweep Combined With Heat/Cold Cold Pack Comments gel ice pack under and on top of knee. KT tape after PT-OP-T Assessment and Plan Start: 01/10/24 15:52 Freq: Status: Active Protocol: Document 03/06/24 10:35 [facility] (Rec: 03/06/24 11:33 [facility] [id number]) Physical Therapy Assessment Goals Four Impairment strength and flexibility impairments LE's left greater than right Short Term Goal (STG) Patient to be instructed in HEP for purposes of LE strengthening and flexibility 02/20/24: goal met, ongoing progression STG Duration goal met Angle Roll Operator Goal (LTG) Patient to be independent and compliant with HEP and demonstrate flexiblity WNL and strength 5/5 kathryn LE's to allow her to return to prior level of functio LTG Duration 03/12/24 Three Impairment swelling left knee Angle Roll Operator Goal (LTG) decrease swelling left knee to within 1 cm circumferential measurement as compared to right to promote improved right knee function 02/20/24: min goal progress LTG Duration 03/12/24 Two Impairment LEFS (lower extremity functional scale) 76% Short Term Goal (STG) Improve LEFS to at least 85% as measure of improved knee function and activity tolerance 02/20/24: no significant progress STG Duration 02/11/24 Custodial Goal (LTG) Improve LEFS to at least 90% as measure of improved knee function and activity tolerance LTG Duration 03/12/24 One Impairment knee pain left greater than right as high as 7/10 Short Term Goal (STG) Decrease pain to no greater than 4/10 with all usual activities 02/20/24: min goal progress STG Duration 02/11/24 Angle Roll Operator Goal (LTG) Decrease pain to no greater than 2/10 with all usual activities including walking on level surfaces and uneven surfaces moving from sit to stand LTG Duration 03/12/24 Physical Therapy Plan Frequency and Duration Frequency of Treatment 2x/Week Duration of treatment (weeks) 8 Plan of Care Start Date 01/11/24 Plan of Care End Date 03/12/24 Next Visit Focus/Plan Next Note Type Treatment Note Next Visit Plan Assess reponse to modified KT tape and increased attention to knee alignment and control, habits of positioning and movement. Further joint mobilizations
--- NOTE | 2024-03-12 16:56 | PT.OTRE ---
Current Diagnoses Pain in right knee (03/12/24) Pain in left knee (03/12/24) Soft tissue disorder, unspecified (03/12/24) Difficulty in walking, not elsewhere classified (03/12/24) Weakness (03/12/24) Past Medical History (Last Reviewed 10/14/21 @ 13:03 by Ethan Bolanos MD) Colon polyps (~2011) Eczema Headache Hemorrhoid Herpes (~1981) Hx of renal calculi (~2009) Measles (~1965) Osteopenia (~2006) Osteoporosis (~2019) Wears glasses Surgical History (Last Reviewed 10/14/21 @ 13:03 by Ethan Bolanos MD) Anesthesia History of lithotripsy Visit Care Team Role Provider Type Kiley Boles MD Family Provider Physician Primary Care Provider Specialty: Family Practice Address: [address] [place] [address], [id number] Email: [email or web address] Bc Barker MD Attending Provider Physician Referring Provider Specialty: Orthopedics Orthopedic Surgery Address: [address] [place] [address], [id number] Email: [email or web address] Physical Therapy Re-Evaluation PT-OP-A Visit Information Start: 01/10/24 15:52 Freq: Status: Active Protocol: Document 03/12/24 14:30 [facility]AK (Rec: 03/12/24 15:23 [facility] [id number]) Out-Patient Physical Therapy Visit Information Visit Information Visit Type Treatment Note Visit Start Time 14:30 Visit Stop Time 15:25 Visit Number 11 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 30 years ago hurt left knee skiing downhill , wasn't treated. Now walks [address] at [place] 1 day per week 3 1/2 miles, other days walking downhill to [facility], then uphill. In August of this year was late to meet and decided to run, and it was downhill, has not felt well since then. Most recently hiking her left knee feels unstable. Now pain starts bottom of kneecap, moves around often to top of kneecap. Not able to take long walks right now due to pain and instabilityStates squatting causes the worst pain. Neighbor who is a PT gave her 45 degree wall squats and short arc quads. States she is horribly bad at stretching. Has history of plantar fascitis Prior Treatments and Tests x-rays; medial compartment Future Testing and Treatments Planned none at this time PT-OP-C Subjective Start: 01/10/24 15:52 Freq: Status: Active Protocol: Document 03/12/24 14:30 [facility] (Rec: 03/12/24 15:23 [facility] [id number]) OP-PT Subjective Patient Comments Patient Comments Hs referral for knee MRI but only for 1 knee, working to get for both. Thinks KT tape helpful. Only doing exercises given by PT except a couple weeks. Did HEP today and then walked the park. [place] pain left knee during whole walk today. Excersises of stretching calf on left cause pain. Can now squat to go to the bathroom PT-OP-D Balance Start: 01/10/24 15:52 Freq: Status: Active Protocol: Document 01/11/24 13:44 [facility] (Rec: 01/15/24 11:08 [facility] [id number]) OP-PT Balance Assessment Sitting Balance Static Sitting Balance Ability Normal Dynamic Sitting Balance Ability Normal Standing Balance Static Standing Balance Ability Normal Dynamic Standing Balance Ability Normal Michel Fall Scale Copyright Permission Anand MCQUEEN, Anand RM, Varghese SJ. Development of a scale to identify the fall- prone patient. Can J Aging 1989;8;366-7. Jayson Michel (2009). Preventing patient falls. (2nd ed). Hettinger: Guzman. PT-OP-G Mobility & Gait Start: 01/10/24 15:52 Freq: Status: Active Protocol: Document 01/11/24 13:44 [facility] (Rec: 01/15/24 11:08 [facility] [id number]) OP Gait Assessment Gait Gait Assistance Required: Independent Able to Maintain Weight Bearing Status Yes During Gait Assistive Devices Assistive Device None Gait Deviations General Gait Pattern Antalgic Factors Limiting Gait Function Factors Limiting Gait Function Pain Comments Gait Comments swelling Stair Climbing Evaluation Evaluation Level of Assist On Stairs Independent Devices Stair Climbing Assistive Devices Left Railing,Right Railing Technique/Endurance Stair Climbing Direction Ascend and Descend Stair Climbing Technique Step to Step PT-OP-H Neuro Start: 01/10/24 15:52 Freq: Status: Active Protocol: Document 01/11/24 13:44 [facility] (Rec: 01/15/24 11:08 [facility] [id number]) Sensation Evaluation Gross Sensation Gross Sensation WNL PT-OP-J Posture/Palpation/Skin Start: 01/10/24 15:52 Freq: Status: Active Protocol: Document 01/11/24 13:44 [facility] (Rec: 01/15/24 11:08 [facility] [id number]) Posture Evaluation Position Standing Pelvis Posture Anteriorly Tilted Knee Posture (L) Genu Valgus,(R) Genu Valgus Patellar Posture (L) Laterally Tilted,(R) Laterally Tilted Ankle/Foot Posture (L) Pronated Foot Arch (L) Low Arch PT-OP-K Range of Motion Start: 01/10/24 15:52 Freq: Status: Active Protocol: Document 01/11/24 13:44 [facility] (Rec: 01/15/24 11:08 [facility] [id number]) Knee Goniometric Range of Motion Knee Measured in Degrees Left Flexion Active (degrees) 110 Extension Active (degrees) 5 Right Knee ROM WFL Yes Knee ROM Limitations Knee ROM Limitations Pain,Swelling Ankle and Foot Goniometric Range of Motion Ankle and Foot Measured in Degrees kathryn Dorsiflexion with Knee Flexed 5 Dorsiflexion with Knee Extended 0 Ankle and Foot ROM Limitations ROM Limitations Soft Tissue Tightness PT-OP-L Special Tests Start: 01/10/24 15:52 Freq: Status: Active Protocol: Document 01/11/24 13:44 [facility] (Rec: 01/15/24 11:08 [facility] [id number]) Special Tests Knee Special Tests Patellar Grind Test Test Results positive kathryn Valgus- 25 Degrees Test Results + laxity left vs right Anterior Draw Test Results + laxity left vs right PT-OP-M Strength Start: 01/10/24 15:52 Freq: Status: Active Protocol: Document 01/11/24 13:44 [facility] (Rec: 01/15/24 11:08 [facility] [id number]) Hip Strength Hip Manual Muscle Testing kathryn Flexion (L2) 4 Good Extension (S1) 4 Good Abduction 4 Good Adduction 4 Good External Rotation 4 Good Internal Rotation 4 Good Knee Strength Knee Manual Muscle Testing Left Flexion (S2) 4- Good- Extension (L3) 4- Good- Right Flexion (S2) 4+ Good+ Extension (L3) 4+ Good+ Ankle/Foot Strength Ankle and Foot Manual Muscle Testing Right Dorsiflexion (L4) 4+ Good+ Plantarflexion (S1) 4+ Good+ Left Dorsiflexion (L4) 4 Good Plantarflexion (S1) 4- Good- PT-OP-Q Treatments Start: 01/10/24 15:52 Freq: Status: Active Protocol: Document 03/12/24 14:30 [facility] (Rec: 03/12/24 16:42 [facility] [id number]) Therapeutic Exercises Sidelying Exercises hip ad Sidelying Exercise Name HEP review, pillows under top leg forward Reps/Minutes 10x Standing Exercises split squat Equipment Used mirror Reps/Minutes 5x ea LE in front Comments mini Squat Standing Exercise Name Verbal cues to squat to depth that does not increase pain Equipment Used L3 TB distal thighs Reps/Minutes 10x Comments Monitored for depth of justice gastroc stretch Standing Exercise Name standing at wall also soleus Side bilateral Equipment Used HEP Reps/Minutes 30 X 2 each stretch each LE Comments encouraged gentle heel raises Standing Exercise Name Hold due to forefoot pain Therapeutic Activity Therapeutic Activity floor transfer Reps/Minutes 1x Comments through 1/2 kneeling, needs to modify for dec weightbearing left but performed independently Manual Therapy Treatment Joint Mobilizations prox tib fib Direction post Grade III Body Position Hooklying Reps/Duration 10x tib fib distal Direction AP and PA Grade IV Body Position Supine Reps/Duration X10 Taping left knee Treatment Focus edema reduction Type of Tape Kinesiotape Comments 4 fan strips: 2 posterior crossing behind knee, 2 anterior crossing anerior and lateral knee (paper off tension both with 30 degree bend in knee during application [ End ] Manual Techniques self TC Comments L2 TB anchored on treatment table and around front of ankle TC joint, forward weight shift for inc df Self-Care/Home Management Treatment Education Patient Education Home Exercise Program,Joint Protection,Pain Management Other Education Reviewed HEP, clarified sidelying adduction, added self mobilization TC with theraband ex and quad stretch. PT-OP-R Modalities Start: 01/10/24 15:52 Freq: Status: Active Protocol: Document 03/12/24 14:30 [facility]AK (Rec: 03/12/24 16:42 [facility] [id number]) Hot Pack/Cold Pack Treatment Cold Pack Location kathryn knees Patient Position Hooklying Patient Tolerance Good Comments legs elevated. PT-OP-T Assessment and Plan Start: 01/10/24 15:52 Freq: Status: Active Protocol: Document 03/12/24 14:30 [facility] (Rec: 03/12/24 15:23 [facility] [id number]) Physical Therapy Assessment Goals Four Impairment strength and flexibility impairments LE's left greater than right Short Term Goal (STG) Patient to be instructed in HEP for purposes of LE strengthening and flexibility 02/20/24: goal met, ongoing progression STG Duration goal met Atm Mechanic Goal (LTG) Patient to be independent and compliant with HEP and demonstrate flexiblity WNL and strength 5/5 kathryn LE's to allow her to return to prior level of function 03/12/24 LTG Duration 03/12/24 Three Impairment swelling left knee Atm Mechanic Goal (LTG) decrease swelling left knee to within 1 cm circumferential measurement as compared to right to promote improved right knee function 02/20/24: min goal progress 03/12/24: decreases after ice and with KT tape but not met. LTG Duration 03/12/24 Two Impairment LEFS (lower extremity functional scale) 76% Short Term Goal (STG) Improve LEFS to at least 85% as measure of improved knee function and activity tolerance 02/20/24: no significant progress STG Duration 02/11/24 Fci Goal (LTG) Improve LEFS to at least 90% as measure of improved knee function and activity tolerance 03/12/24: 65% though reporting improvement in ability to squat, get off toilet LTG Duration 03/12/24 One Impairment knee pain left greater than right as high as 7/10 Short Term Goal (STG) Decrease pain to no greater than 4/10 with all usual activities 02/20/24: min goal progress 03/12/24: reports right side varies 2-3/10, left side 3-5/ 10 with occasional spikes to 9 /10. STG Duration 02/11/24 Atm Mechanic Goal (LTG) Decrease pain to no greater than 2/10 with all usual activities including walking on level surfaces and uneven surfaces moving from sit to stand 03/12/24 LTG Duration 03/12/24 Assessment Summary Assessment Patient reported some functional improvements but frustrated by persistent pain significantly limiting her functional activities. PT focusing on strengthening, flexibility, correcting impaired mechanics and habits of positioning. She is compliant to HEP with we updated and modfied today including use of theraband at distal thighs instead of ankles for resisted monster walks. Patient demonstrated good understanding. KT tape and ice to end session with good response and PT urged patient more frequent icing at home not just when notices it is swollen. Patient will be scheduling MRI. Physical Therapy Plan Frequency and Duration Frequency of Treatment 2x/Week Duration of treatment (weeks) 8 Plan of Care Start Date 03/12/24 Plan of Care End Date 05/13/24 Next Visit Focus/Plan Next Note Type Treatment Note Next Visit Plan Consider cold laser treatment, lymphatic massage, continued ther ex with emphasis on correct biomechanics and muscle activation especially on stairs.
--- NOTE | 2024-03-12 16:57 | PT.OPPOC ---
Physical, Occupational & Speech Therapy At [facility] Current Diagnoses Pain in right knee (03/12/24) Pain in left knee (03/12/24) Soft tissue disorder, unspecified (03/12/24) Difficulty in walking, not elsewhere classified (03/12/24) Weakness (03/12/24) Visit Care Team Role Provider Type Kiley Boles MD Family Provider Physician Primary Care Provider Specialty: Family Practice Address: [address] [place] [address], [facility] [place], [address] Email: [email or web address] Bc Barker MD Attending Provider Physician Referring Provider Specialty: Orthopedics Orthopedic Surgery Address: [address] [place] [address], [address] Email: [email or web address] Plan Of Care PT-OP-B Current Condition Start: 01/10/24 15:52 Freq: Status: Active Protocol: Document 03/12/24 14:30 [facility]AK (Rec: 03/12/24 15:23 [facility] [id number]) Current Condition History of Current Condition Onset Date August 2023 Current Complaints kathryn knee pain left greater than right History of Current Condition 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 30 years ago hurt left knee skiing downhill , wasn't treated. Now walks [address] [place] 1 day per week 3 1/2 miles, other days walking downhill to [facility], then uphill. In August of this year was late to meet and decided to run, and it was downhill, has not felt well since then. Most recently hiking her left knee feels unstable. Now pain starts bottom of kneecap, moves around often to top of kneecap. Not able to take long walks right now due to pain and instabilityStates squatting causes the worst pain. Neighbor who is a PT gave her 45 degree wall squats and short arc quads. States she is horribly bad at stretching. Has history of plantar fascitis Prior Treatments and Tests x-rays; medial compartment Future Testing and Treatments Planned none at this time PT-OP-T Assessment and Plan Start: 01/10/24 15:52 Freq: Status: Active Protocol: Document 03/12/24 14:30 [facility] (Rec: 03/12/24 15:23 [facility] [id number]) Physical Therapy Assessment Goals Four Impairment strength and flexibility impairments LE's left greater than right Short Term Goal (STG) Patient to be instructed in HEP for purposes of LE strengthening and flexibility 02/20/24: goal met, ongoing progression STG Duration goal met 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 LTG Duration 03/12/24 Two Impairment LEFS (lower extremity functional scale) 76% Short Term Goal (STG) Improve LEFS to at least 85% as measure of improved knee function and activity tolerance 02/20/24: no significant progress STG Duration 02/11/24 Mica Machine Operator Goal (LTG) Improve LEFS to at least 90% as measure of improved knee function and activity tolerance 03/12/24: 65% though reporting improvement in ability to squat, get off toilet LTG Duration 03/12/24 One Impairment knee pain left greater than right as high as 7/10 Short Term Goal (STG) Decrease pain to no greater than 4/10 with all usual activities 02/20/24: min goal progress 03/12/24: reports right side varies 2-3/10, left side 3-5/ 10 with occasional spikes to 9 /10. STG Duration 02/11/24 Mica Machine Operator Goal (LTG) Decrease pain to no greater than 2/10 with all usual activities including walking on level surfaces and uneven surfaces moving from sit to stand 03/12/24 LTG Duration 03/12/24 Assessment Summary Assessment Patient reported some functional improvements but frustrated by persistent pain significantly limiting her functional activities. PT focusing on strengthening, flexibility, correcting impaired mechanics and habits of positioning. She is compliant to HEP with we updated and modfied today including use of theraband at distal thighs instead of ankles for resisted monster walks. Patient demonstrated good understanding. KT tape and ice to end session with good response and PT urged patient more frequent icing at home not just when notices it is swollen. Patient will be scheduling MRI. Physical Therapy Plan Frequency and Duration Frequency of Treatment 2x/Week Duration of treatment (weeks) 8 Plan of Care Start Date 03/12/24 Plan of Care End Date 05/13/24 Next Visit Focus/Plan Next Note Type Treatment Note Next Visit Plan Consider cold laser treatment, lymphatic massage, continued ther ex with emphasis on correct biomechanics and muscle activation especially on stairs. Plan of Care Dates Plan of Care Start Date 03/12/24 Plan of Care End Date 05/13/24 Electronically Signed by: Nisha Sy, PT 03/12/24 0168 If you are in agreement with this Plan of Care, please return a signed and dated copy. I have reviewed this Plan of Care and certify that the skilled therapy services above are required to meet the patient?s needs. Physician Signature Date Printed Name and Credentials Clinical Instructor Signature Printed Name and Credentials
--- NOTE | 2024-03-18 16:38 | PT.OTN ---
Addendum entered and electronically signed by Inez Frank 03/18/24 17:19: Also performed supine quad sets bilaterally X 10 Original Note: Current Diagnoses Pain in right knee (03/18/24) Pain in left knee (03/18/24) Soft tissue disorder, unspecified (03/18/24) Difficulty in walking, not elsewhere classified (03/18/24) Weakness (03/18/24) Physical Therapy Treatment Note PT-OP-A Visit Information Start: 01/10/24 15:52 Freq: Status: Active Protocol: Document 03/18/24 12:41 AB (Rec: 03/18/24 16:37 AB [id number]) Out-Patient Physical Therapy Visit Information Visit Information Visit Type Treatment Note Visit Start Time 13:02 Visit Stop Time 13:55 Visit Number 12 Number of SPOON MAKER Visits 1 Evaluation Information Evaluation Date 01/11/24 PT-OP-B Current Condition Start: 01/10/24 15:52 Freq: Status: Active Protocol: Document 03/12/24 14:30 SAK (Rec: 03/12/24 15:23 SAK [id number]) Current Condition History of Current Condition Onset Date August 2023 Current Complaints kathryn knee pain left greater than right History of Current Condition 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 30 years ago hurt left knee skiing downhill , wasn't treated. Now walks [address] at [place] 1 day per week 3 1/2 miles, other days walking downhill to [facility], then uphill. In August of this year was late to meet and decided to run, and it was downhill, has not felt well since then. Most recently hiking her left knee feels unstable. Now pain starts bottom of kneecap, moves around often to top of kneecap. Not able to take long walks right now due to pain and instabilityStates squatting causes the worst pain. Neighbor who is a PT gave her 45 degree wall squats and short arc quads. States she is horribly bad at stretching. Has history of plantar fascitis Prior Treatments and Tests x-rays; medial compartment Future Testing and Treatments Planned none at this time PT-OP-C Subjective Start: 01/10/24 15:52 Freq: Status: Active Protocol: Document 03/18/24 12:41 AB (Rec: 03/18/24 16:37 AB [id number]) OP-PT Subjective Patient Comments Patient Comments Patient had MRI, PT made aware , HEP to be changed to 4 way/ SLR, isometrics, manual for swelling and laser this session. Patient reports she already performed hip abd, add and ext(prone) earlier today. PT-OP-D Balance Start: 01/10/24 15:52 Freq: Status: Active Protocol: Document 01/11/24 13:44 SAK (Rec: 01/15/24 11:08 [facility] [id number]) OP-PT Balance Assessment Sitting Balance Static Sitting Balance Ability Normal Dynamic Sitting Balance Ability Normal Standing Balance Static Standing Balance Ability Normal Dynamic Standing Balance Ability Normal Michel Fall Scale Copyright Permission PT-OP-G Mobility & Gait Start: 01/10/24 15:52 Freq: Status: Active Protocol: Document 01/11/24 13:44 SAK (Rec: 01/15/24 11:08 [facility] [id number]) OP Gait Assessment Gait Gait Assistance Required: Independent Able to Maintain Weight Bearing Status Yes During Gait Assistive Devices Assistive Device None Gait Deviations General Gait Pattern Antalgic Factors Limiting Gait Function Factors Limiting Gait Function Pain Comments Gait Comments swelling Stair Climbing Evaluation Evaluation Level of Assist On Stairs Independent Devices Stair Climbing Assistive Devices Left Railing,Right Railing Technique/Endurance Stair Climbing Direction Ascend and Descend Stair Climbing Technique Step to Step PT-OP-H Neuro Start: 01/10/24 15:52 Freq: Status: Active Protocol: Document 01/11/24 13:44 SAK (Rec: 01/15/24 11:08 [facility] [id number]) Sensation Evaluation Gross Sensation Gross Sensation WNL PT-OP-J Posture/Palpation/Skin Start: 01/10/24 15:52 Freq: Status: Active Protocol: Document 01/11/24 13:44 SAK (Rec: 01/15/24 11:08 [facility] [id number]) Posture Evaluation Position Standing Pelvis Posture Anteriorly Tilted Knee Posture (L) Genu Valgus,(R) Genu Valgus Patellar Posture (L) Laterally Tilted,(R) Laterally Tilted Ankle/Foot Posture (L) Pronated Foot Arch (L) Low Arch PT-OP-K Range of Motion Start: 01/10/24 15:52 Freq: Status: Active Protocol: Document 01/11/24 13:44 SAK (Rec: 01/15/24 11:08 [facility] [id number]) Knee Goniometric Range of Motion Knee Left Flexion Active (degrees) 110 Extension Active (degrees) 5 Right Knee ROM WFL Yes Knee ROM Limitations Knee ROM Limitations Pain,Swelling Ankle and Foot Goniometric Range of Motion Ankle and Foot kathryn Dorsiflexion with Knee Flexed 5 Dorsiflexion with Knee Extended 0 Ankle and Foot ROM Limitations ROM Limitations Soft Tissue Tightness PT-OP-L Special Tests Start: 01/10/24 15:52 Freq: Status: Active Protocol: Document 01/11/24 13:44 SAK (Rec: 01/15/24 11:08 [facility] [id number]) Special Tests Knee Special Tests Patellar Grind Test Test Results positive kathryn Valgus- 25 Degrees Test Results + laxity left vs right Anterior Draw Test Results + laxity left vs right PT-OP-M Strength Start: 01/10/24 15:52 Freq: Status: Active Protocol: Document 01/11/24 13:44 [facility] (Rec: 01/15/24 11:08 [facility] [id number]) Hip Strength Hip Manual Muscle Testing kathryn Flexion (L2) 4 Good Extension (S1) 4 Good Abduction 4 Good Adduction 4 Good External Rotation 4 Good Internal Rotation 4 Good Knee Strength Knee Manual Muscle Testing Left Flexion (S2) 4- Good- Extension (L3) 4- Good- Right Flexion (S2) 4+ Good+ Extension (L3) 4+ Good+ Ankle/Foot Strength Ankle and Foot Manual Muscle Testing Right Dorsiflexion (L4) 4+ Good+ Plantarflexion (S1) 4+ Good+ Left Dorsiflexion (L4) 4 Good Plantarflexion (S1) 4- Good- PT-OP-Q Treatments Start: 01/10/24 15:52 Freq: Status: Active Protocol: Document 03/18/24 12:41 AB (Rec: 03/18/24 16:37 AB [id number]) Therapeutic Exercises Supine Exercises hamstring sets Supine Exercise Name HEP Side bilateral Reps/Minutes X15 X 2 Comments verbal cues glute sets Supine Exercise Name HEP Side bilateral Reps/Minutes X15 X 2 Comments verbal cues SLR Supine Exercise Name HEP review Side bilateral Reps/Minutes X15 Comments Verbal cues to keep knee straight and rest a moment betw reps Manual Therapy Treatment Consent Patient gave verbal consent for manual Yes treatment Soft Tissue Mobilization left knee Body Location distal quad left, HS and proximal calf Mobilization Type Cross-Friction,Manual Lymphatic Drainage,Myofascial Release,Rolling Intensity/Depth Moderate Body Position Hooklying Comments and superficial PT-OP-R Modalities Start: 01/10/24 15:52 Freq: Status: Active Protocol: Document 03/18/24 12:41 AB (Rec: 03/18/24 16:37 AB [id number]) Hot Pack/Cold Pack Treatment Cold Pack Location kathryn knees Patient Position Hooklying Patient Tolerance Good Comments legs elevated. Infrared Treatment Treatment left knee Body Position Hooklying Continuous/Pulsed chronic cont Program or Protocal 6 areas 3 med 3 lat one min each PT-OP-T Assessment and Plan Start: 01/10/24 15:52 Freq: Status: Active Protocol: Document 03/18/24 12:41 AB (Rec: 03/18/24 16:37 AB [id number]) Physical Therapy Assessment Goals Four Impairment strength and flexibility impairments LE's left greater than right Short Term Goal (STG) Patient to be instructed in HEP for purposes of LE strengthening and flexibility 02/20/24: goal met, ongoing progression STG Duration goal met Correction Goal (LTG) Patient to be independent and compliant with HEP and demonstrate flexiblity WNL and strength 5/5 kathryn LE's to allow her to return to prior level of function 03/12/24 LTG Duration 03/12/24 Three Impairment swelling left knee Correction Goal (LTG) decrease swelling left knee to within 1 cm circumferential measurement as compared to right to promote improved right knee function 02/20/24: min goal progress 03/12/24: decreases after ice and with KT tape but not met. LTG Duration 03/12/24 Two Impairment LEFS (lower extremity functional scale) 76% Short Term Goal (STG) Improve LEFS to at least 85% as measure of improved knee function and activity tolerance 02/20/24: no significant progress STG Duration 02/11/24 Cartoonist Special Effects Goal (LTG) Improve LEFS to at least 90% as measure of improved knee function and activity tolerance 03/12/24: 65% though reporting improvement in ability to squat, get off toilet LTG Duration 03/12/24 One Impairment knee pain left greater than right as high as 7/10 Short Term Goal (STG) Decrease pain to no greater than 4/10 with all usual activities 02/20/24: min goal progress 03/12/24: reports right side varies 2-3/10, left side 3-5/ 10 with occasional spikes to 9 /10. STG Duration 02/11/24 Correction Goal (LTG) Decrease pain to no greater than 2/10 with all usual activities including walking on level surfaces and uneven surfaces moving from sit to stand 03/12/24 LTG Duration 03/12/24 Assessment Summary Assessment Good return demonstration for quad and glute sets. Patient ed to only perform muscle sets , SLR, hip abd, hip abd, hip ext for HEP. Patient's HEP updated and other exercises placed in shredder, except HR which was crossed off page with the hip exercises. Physical Therapy Plan Frequency and Duration Frequency of Treatment 2x/Week Duration of treatment (weeks) 8 Plan of Care Start Date 03/12/24 Plan of Care End Date 05/13/24 Next Visit Focus/Plan Next Note Type Treatment Note Next Visit Plan Consider cold laser treatment, lymphatic massage, Review HEP
--- NOTE | 2024-04-02 11:34 | PT-OP ANOTE ---
cancelled appointment today due to taking for thorocentesis.
--- NOTE | 2024-04-05 10:46 | PT.OTN ---
Current Diagnoses Pain in right knee (04/05/24) Pain in left knee (04/05/24) Soft tissue disorder, unspecified (04/05/24) Difficulty in walking, not elsewhere classified (04/05/24) Weakness (04/05/24) Physical Therapy Treatment Note PT-OP-A Visit Information Start: 01/10/24 15:52 Freq: Status: Active Protocol: Document 04/05/24 08:13 AB (Rec: 04/05/24 10:45 AB [id number]) Out-Patient Physical Therapy Visit Information Visit Information Visit Type Treatment Note Visit Start Time 09:48 Visit Stop Time 10:40 Visit Number 13 Number of RECREATION THERAPY TEACHER Visits 2 Evaluation Information Evaluation Date 01/11/24 PT-OP-B Current Condition Start: 01/10/24 15:52 Freq: Status: Active Protocol: Document 03/12/24 14:30 SAK (Rec: 03/12/24 15:23 SAK [id number]) Current Condition History of Current Condition Onset Date August 2023 Current Complaints kathryn knee pain left greater than right History of Current Condition 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 30 years ago hurt left knee skiing downhill , wasn't treated. Now walks [address] at [place] 1 day per week 3 1/2 miles, other days walking downhill to [facility], then uphill. In August of this year was late to meet and decided to run, and it was downhill, has not felt well since then. Most recently hiking her left knee feels unstable. Now pain starts bottom of kneecap, moves around often to top of kneecap. Not able to take long walks right now due to pain and instabilityStates squatting causes the worst pain. Neighbor who is a PT gave her 45 degree wall squats and short arc quads. States she is horribly bad at stretching. Has history of plantar fascitis Prior Treatments and Tests x-rays; medial compartment Future Testing and Treatments Planned none at this time PT-OP-C Subjective Start: 01/10/24 15:52 Freq: Status: Active Protocol: Document 04/05/24 08:13 AB (Rec: 04/05/24 10:45 AB [id number]) OP-PT Subjective Patient Comments Patient Comments Patient reports when she had the CT scan of her hand it was up by here head, and has had vertigo since the morning after. Patient reports hx of vertigo, comments she is nauseous right now.Shalonda reports the knee is fine until it's not, comments she woke up screaming in pain post taking 1/2 Benadryl prior to sleep, but then it was fine. PT-OP-D Balance Start: 01/10/24 15:52 Freq: Status: Active Protocol: Document 01/11/24 13:44 SAK (Rec: 01/15/24 11:08 [facility] [id number]) OP-PT Balance Assessment Sitting Balance Static Sitting Balance Ability Normal Dynamic Sitting Balance Ability Normal Standing Balance Static Standing Balance Ability Normal Dynamic Standing Balance Ability Normal Michel Fall Scale Copyright Permission PT-OP-G Mobility & Gait Start: 01/10/24 15:52 Freq: Status: Active Protocol: Document 01/11/24 13:44 SAK (Rec: 01/15/24 11:08 [facility] [id number]) OP Gait Assessment Gait Gait Assistance Required: Independent Able to Maintain Weight Bearing Status Yes During Gait Assistive Devices Assistive Device None Gait Deviations General Gait Pattern Antalgic Factors Limiting Gait Function Factors Limiting Gait Function Pain Comments Gait Comments swelling Stair Climbing Evaluation Evaluation Level of Assist On Stairs Independent Devices Stair Climbing Assistive Devices Left Railing,Right Railing Technique/Endurance Stair Climbing Direction Ascend and Descend Stair Climbing Technique Step to Step PT-OP-H Neuro Start: 01/10/24 15:52 Freq: Status: Active Protocol: Document 01/11/24 13:44 SAK (Rec: 01/15/24 11:08 [facility] [id number]) Sensation Evaluation Gross Sensation Gross Sensation WNL PT-OP-J Posture/Palpation/Skin Start: 01/10/24 15:52 Freq: Status: Active Protocol: Document 01/11/24 13:44 SAK (Rec: 01/15/24 11:08 [facility] [id number]) Posture Evaluation Position Standing Pelvis Posture Anteriorly Tilted Knee Posture (L) Genu Valgus,(R) Genu Valgus Patellar Posture (L) Laterally Tilted,(R) Laterally Tilted Ankle/Foot Posture (L) Pronated Foot Arch (L) Low Arch PT-OP-K Range of Motion Start: 01/10/24 15:52 Freq: Status: Active Protocol: Document 01/11/24 13:44 SAK (Rec: 01/15/24 11:08 SAK [id number]) Knee Goniometric Range of Motion Knee Left Flexion Active (degrees) 110 Extension Active (degrees) 5 Right Knee ROM WFL Yes Knee ROM Limitations Knee ROM Limitations Pain,Swelling Ankle and Foot Goniometric Range of Motion Ankle and Foot kathryn Dorsiflexion with Knee Flexed 5 Dorsiflexion with Knee Extended 0 Ankle and Foot ROM Limitations ROM Limitations Soft Tissue Tightness PT-OP-L Special Tests Start: 01/10/24 15:52 Freq: Status: Active Protocol: Document 01/11/24 13:44 SAK (Rec: 01/15/24 11:08 SAK [id number]) Special Tests Knee Special Tests Patellar Grind Test Test Results positive kathryn Valgus- 25 Degrees Test Results + laxity left vs right Anterior Draw Test Results + laxity left vs right PT-OP-M Strength Start: 01/10/24 15:52 Freq: Status: Active Protocol: Document 01/11/24 13:44 [facility] (Rec: 01/15/24 11:08 [facility] [id number]) Hip Strength Hip Manual Muscle Testing kathryn Flexion (L2) 4 Good Extension (S1) 4 Good Abduction 4 Good Adduction 4 Good External Rotation 4 Good Internal Rotation 4 Good Knee Strength Knee Manual Muscle Testing Left Flexion (S2) 4- Good- Extension (L3) 4- Good- Right Flexion (S2) 4+ Good+ Extension (L3) 4+ Good+ Ankle/Foot Strength Ankle and Foot Manual Muscle Testing Right Dorsiflexion (L4) 4+ Good+ Plantarflexion (S1) 4+ Good+ Left Dorsiflexion (L4) 4 Good Plantarflexion (S1) 4- Good- PT-OP-Q Treatments Start: 01/10/24 15:52 Freq: Status: Active Protocol: Document 04/05/24 08:13 AB (Rec: 04/05/24 10:45 AB [id number]) Therapeutic Exercises Supine Exercises SLR Supine Exercise Name HEP review Side bilateral Resistance 1 lb Reps/Minutes X10 Sidelying Exercises hip ad Sidelying Exercise Name HEP review, top leg fwd Side bilateral Resistance 1# Reps/Minutes 10x hip ab Sidelying Exercise Name HEP Side bilateral Resistance 1# Reps/Minutes X10 Manual Therapy Treatment Soft Tissue Mobilization left knee Body Location L quad and hamstring Mobilization Type Cross-Friction,Manual Lymphatic Drainage,Myofascial Release,Rolling Intensity/Depth Moderate Body Position Hooklying Comments and superficial PT-OP-R Modalities Start: 01/10/24 15:52 Freq: Status: Active Protocol: Document 04/05/24 08:13 AB (Rec: 04/05/24 10:45 AB [id number]) Infrared Treatment Treatment left knee Body Position Hooklying Continuous/Pulsed chronic cont Program or Protocal 6 areas 3 med 3 lat one min each PT-OP-T Assessment and Plan Start: 01/10/24 15:52 Freq: Status: Active Protocol: Document 04/05/24 08:13 AB (Rec: 04/05/24 10:45 AB [id number]) Physical Therapy Assessment Goals Four Impairment strength and flexibility impairments LE's left greater than right Short Term Goal (STG) Patient to be instructed in HEP for purposes of LE strengthening and flexibility 02/20/24: goal met, ongoing progression STG Duration goal met Retirement Goal (LTG) Patient to be independent and compliant with HEP and demonstrate flexiblity WNL and strength 5/5 kathryn LE's to allow her to return to prior level of function 03/12/24 LTG Duration 03/12/24 Three Impairment swelling left knee Retirement Goal (LTG) decrease swelling left knee to within 1 cm circumferential measurement as compared to right to promote improved right knee function 02/20/24: min goal progress 03/12/24: decreases after ice and with KT tape but not met. LTG Duration 03/12/24 Two Impairment LEFS (lower extremity functional scale) 76% Short Term Goal (STG) Improve LEFS to at least 85% as measure of improved knee function and activity tolerance 02/20/24: no significant progress STG Duration 02/11/24 Retirement Goal (LTG) Improve LEFS to at least 90% as measure of improved knee function and activity tolerance 03/12/24: 65% though reporting improvement in ability to squat, get off toilet LTG Duration 03/12/24 One Impairment knee pain left greater than right as high as 7/10 Short Term Goal (STG) Decrease pain to no greater than 4/10 with all usual activities 02/20/24: min goal progress 03/12/24: reports right side varies 2-3/10, left side 3-5/ 10 with occasional spikes to 9 /10. STG Duration 02/11/24 Retirement Goal (LTG) Decrease pain to no greater than 2/10 with all usual activities including walking on level surfaces and uneven surfaces moving from sit to stand 03/12/24 LTG Duration 03/12/24 Assessment Summary Assessment Shalonda reports having no change in pain end of session. Of note reports not feeling dizzy post supine to sit end of session. Good justice to 1 lb weight for SLR, abd and add. Physical Therapy Plan Frequency and Duration Frequency of Treatment 2x/Week Duration of treatment (weeks) 8 Plan of Care Start Date 03/12/24 Plan of Care End Date 05/13/24 Next Visit Focus/Plan Next Note Type Treatment Note Next Visit Plan Consider cold laser treatment, lymphatic massage, Review HEP
--- NOTE | 2024-04-09 16:08 | PT.OTN ---
Current Diagnoses Pain in right knee (04/09/24) Pain in left knee (04/09/24) Soft tissue disorder, unspecified (04/09/24) Difficulty in walking, not elsewhere classified (04/09/24) Weakness (04/09/24) Physical Therapy Treatment Note PT-OP-A Visit Information Start: 01/10/24 15:52 Freq: Status: Active Protocol: Document 04/09/24 14:31 SAK (Rec: 04/09/24 15:20 [facility] [id number]) Out-Patient Physical Therapy Visit Information Visit Information Visit Type Treatment Note Visit Start Time 14:32 Visit Stop Time 15:10 Visit Number 14 Number of DECISION SCIENCE ANALYST Visits 0 Evaluation Information Evaluation Date 01/11/24 PT-OP-B Current Condition Start: 01/10/24 15:52 Freq: Status: Active Protocol: Document 04/09/24 14:31 SAK (Rec: 04/09/24 15:20 [facility] [id number]) Current Condition History of Current Condition Onset Date August 2023 Current Complaints kathryn knee pain left greater than right History of Current Condition 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 30 years ago hurt left knee skiing downhill , wasn't treated. Now walks [address] at [place] 1 day per week 3 1/2 miles, other days walking downhill to [facility], then uphill. In August of this year was late to meet and decided to run, and it was downhill, has not felt well since then. Most recently hiking her left knee feels unstable. Now pain starts bottom of kneecap, moves around often to top of kneecap. Not able to take long walks right now due to pain and instabilityStates squatting causes the worst pain. Neighbor who is a PT gave her 45 degree wall squats and short arc quads. States she is horribly bad at stretching. Has history of plantar fascitis Prior Treatments and Tests x-rays; medial compartment Future Testing and Treatments Planned none at this time PT-OP-C Subjective Start: 01/10/24 15:52 Freq: Status: Active Protocol: Document 04/09/24 14:31 SAK (Rec: 04/09/24 15:20 [facility] [id number]) OP-PT Subjective Patient Comments Patient Comments Started trying to take walks again, but toleating poorly. Going for second opinion with orthopedist. Anticipating may need to have surgery. Feels comfortable with HEP. PT-OP-D Balance Start: 01/10/24 15:52 Freq: Status: Active Protocol: Document 01/11/24 13:44 [facility] (Rec: 01/15/24 11:08 [facility] [id number]) OP-PT Balance Assessment Sitting Balance Static Sitting Balance Ability Normal Dynamic Sitting Balance Ability Normal Standing Balance Static Standing Balance Ability Normal Dynamic Standing Balance Ability Normal Michel Fall Scale Copyright Permission PT-OP-G Mobility & Gait Start: 01/10/24 15:52 Freq: Status: Active Protocol: Document 01/11/24 13:44 [facility] (Rec: 01/15/24 11:08 [facility] [id number]) OP Gait Assessment Gait Gait Assistance Required: Independent Able to Maintain Weight Bearing Status Yes During Gait Assistive Devices Assistive Device None Gait Deviations General Gait Pattern Antalgic Factors Limiting Gait Function Factors Limiting Gait Function Pain Comments Gait Comments swelling Stair Climbing Evaluation Evaluation Level of Assist On Stairs Independent Devices Stair Climbing Assistive Devices Left Railing,Right Railing Technique/Endurance Stair Climbing Direction Ascend and Descend Stair Climbing Technique Step to Step PT-OP-H Neuro Start: 01/10/24 15:52 Freq: Status: Active Protocol: Document 01/11/24 13:44 [facility] (Rec: 01/15/24 11:08 [facility] [id number]) Sensation Evaluation Gross Sensation Gross Sensation WNL PT-OP-J Posture/Palpation/Skin Start: 01/10/24 15:52 Freq: Status: Active Protocol: Document 01/11/24 13:44 [facility] (Rec: 01/15/24 11:08 [facility] [id number]) Posture Evaluation Position Standing Pelvis Posture Anteriorly Tilted Knee Posture (L) Genu Valgus,(R) Genu Valgus Patellar Posture (L) Laterally Tilted,(R) Laterally Tilted Ankle/Foot Posture (L) Pronated Foot Arch (L) Low Arch PT-OP-K Range of Motion Start: 01/10/24 15:52 Freq: Status: Active Protocol: Document 01/11/24 13:44 [facility] (Rec: 01/15/24 11:08 [facility] [id number]) Knee Goniometric Range of Motion Knee Left Flexion Active (degrees) 110 Extension Active (degrees) 5 Right Knee ROM WFL Yes Knee ROM Limitations Knee ROM Limitations Pain,Swelling Ankle and Foot Goniometric Range of Motion Ankle and Foot kathryn Dorsiflexion with Knee Flexed 5 Dorsiflexion with Knee Extended 0 Ankle and Foot ROM Limitations ROM Limitations Soft Tissue Tightness PT-OP-L Special Tests Start: 01/10/24 15:52 Freq: Status: Active Protocol: Document 01/11/24 13:44 [facility] (Rec: 01/15/24 11:08 [facility] [id number]) Special Tests Knee Special Tests Patellar Grind Test Test Results positive kathryn Valgus- 25 Degrees Test Results + laxity left vs right Anterior Draw Test Results + laxity left vs right PT-OP-M Strength Start: 01/10/24 15:52 Freq: Status: Active Protocol: Document 01/11/24 13:44 [facility] (Rec: 01/15/24 11:08 [facility] [id number]) Hip Strength Hip Manual Muscle Testing kathryn Flexion (L2) 4 Good Extension (S1) 4 Good Abduction 4 Good Adduction 4 Good External Rotation 4 Good Internal Rotation 4 Good Knee Strength Knee Manual Muscle Testing Left Flexion (S2) 4- Good- Extension (L3) 4- Good- Right Flexion (S2) 4+ Good+ Extension (L3) 4+ Good+ Ankle/Foot Strength Ankle and Foot Manual Muscle Testing Right Dorsiflexion (L4) 4+ Good+ Plantarflexion (S1) 4+ Good+ Left Dorsiflexion (L4) 4 Good Plantarflexion (S1) 4- Good- PT-OP-Q Treatments Start: 01/10/24 15:52 Freq: Status: Active Protocol: Document 04/09/24 14:31 [facility] (Rec: 04/09/24 15:20 [facility] [id number]) Manual Therapy Treatment Soft Tissue Mobilization left knee Body Location L quad and hamstring Mobilization Type Cross-Friction,Manual Lymphatic Drainage,Myofascial Release,Rolling Intensity/Depth Moderate Body Position Hooklying Comments and superficial Taping left knee Comments [ End ] PT-OP-R Modalities Start: 01/10/24 15:52 Freq: Status: Active Protocol: Document 04/09/24 14:31 [facility] (Rec: 04/09/24 15:20 [facility] [id number]) Infrared Treatment Treatment left knee Body Position Hooklying Continuous/Pulsed chronic cont Program or Protocal 6 areas 3 med 3 lat one min each PT-OP-T Assessment and Plan Start: 01/10/24 15:52 Freq: Status: Active Protocol: Document 04/09/24 14:31 [facility] (Rec: 04/09/24 15:20 [facility] [id number]) Physical Therapy Assessment Goals Four Impairment strength and flexibility impairments LE's left greater than right Short Term Goal (STG) Patient to be instructed in HEP for purposes of LE strengthening and flexibility 02/20/24: goal met, ongoing progression STG Duration goal met Prison Goal (LTG) Patient to be independent and compliant with HEP and demonstrate flexiblity WNL and strength 5/5 kathryn LE's to allow her to return to prior level of function 03/12/24 04/10/24: independent with HEP, some poorly tolerated. Strength in knees 4+/5 but with pain with resistance. Goal partially met LTG Duration 03/12/24 Three Impairment swelling left knee Program Attendant Goal (LTG) decrease swelling left knee to within 1 cm circumferential measurement as compared to right to promote improved right knee function 02/20/24: min goal progress 03/12/24: decreases after ice and with KT tape but not met. 04/10/24: goal not met LTG Duration 03/12/24 Two Impairment LEFS (lower extremity functional scale) 76% Short Term Goal (STG) Improve LEFS to at least 85% as measure of improved knee function and activity tolerance 02/20/24: no significant progress STG Duration 02/11/24 Program Attendant Goal (LTG) Improve LEFS to at least 90% as measure of improved knee function and activity tolerance 03/12/24: 65% though reporting improvement in ability to squat, get off toilet 04/10/24: no further improvement, not met LTG Duration 03/12/24 One Impairment knee pain left greater than right as high as 7/10 Short Term Goal (STG) Decrease pain to no greater than 4/10 with all usual activities 02/20/24: min goal progress 03/12/24: reports right side varies 2-3/10, left side 3-5/ 10 with occasional spikes to 9 /10. STG Duration 02/11/24 Prison Goal (LTG) Decrease pain to no greater than 2/10 with all usual activities including walking on level surfaces and uneven surfaces moving from sit to stand 04/10/24: goal not met LTG Duration 03/12/24 Assessment Summary Assessment Patient not making any progress with PT. She is independent with HEP and was given guidance in gradual resumption of exercises as she tolerates. She is going to see another orthopedist for second opinion. Agreeable to dischasrge from PT this date. Physical Therapy Plan Discharge Physical Therapy Discharge Reasons Plateau in Progress Discharge Comments Patient not benefiting from PT . Is independent with HEP.
== END 2024-04-12 10:36 | disposition home or self-care (01) ==
LOC: PHYS 14:30
PROVIDERS: Family Provider Family Medicine; PCP Family Medicine; Referring Provider Orthopaedic Surgery Adult Reconstructive Orthopaedic Surgery; Visit Provider Orthopaedic Surgery Adult Reconstructive Orthopaedic Surgery
DX: M25.561 Pain in right knee (principal); M25.562 Pain in left knee; R26.2 Difficulty in walking, not elsewhere classified; R53.1 Weakness; M79.9 Soft tissue disorder, unspecified
CPT/HCPCS: 97110; 97140; 97162; 97535

== ENCOUNTER → 2024-08-21 | Outpatient (CLI) | payer MEDICARE, OTHER, SELFPAY ==
--- NOTE | 2024-08-21 15:31 | DI.MG.S_ITS ---
MM screening mammo BI: 08/21/2024. BI-RADS: 1 CLINICAL: 64-year old female for bilateral screening mammogram. Tyrer-Cuzick lifetime risk of 20.6%. Current reported family history of breast cancer: mother. The patient had a prior right breast biopsy. PRIOR EXAMS 05/06/2023, 09/28/2021, 06/02/2020, 07/25/2018, 01/19/2016, 01/12/2016. MAMMOGRAPHY TECHNIQUE: 2D and 3D (tomosynthesis) digital mammographic views obtained, with additional images as needed for full coverage. Current study was also evaluated with a Computer Aided Detection (CAD) system. DENSITY C. The breasts are heterogeneously dense, which may obscure small masses. MAMMOGRAPHY FINDINGS Bilateral: No suspicious mass, asymmetry, microcalcification, or other abnormality seen. IMPRESSION: * No evidence of malignancy. RECOMMENDATIONS Bilateral * According to the Tyrer-Cuzick Risk Assessment Model, based on the information provided your patient has a greater than 20% lifetime risk for developing breast cancer. Consider supplemental screening with breast MRI and participation in a high risk screening program. * Annual screening mammography. OVERALL ASSESSMENT CATEGORY BI-RADS-1: Negative. The [employer] recommends annual screening mammography beginning at age 40 for women with average risk of breast cancer. ELECTRONICALLY SIGNED: Fransico Gentile M.D. on 08/22/2024 at 06:46:25 AM PT Interpreting Station ID: [id number]
== END ==
PROVIDERS: Family Provider Family Medicine; PCP Family Medicine; Referring Provider Family Medicine; Visit Provider Family Medicine
DX: Z12.31 Encounter for screening mammogram for malignant neoplasm of breast (principal); R92.333 Mammographic heterogeneous density, bilateral breasts; Z80.3 Family history of malignant neoplasm of breast
CPT/HCPCS: 77063; 77067

== ENCOUNTER → 2024-08-23 10:48 | Outpatient (CLI) | payer MEDICARE, OTHER, SELFPAY ==
[2024-08-23 12:20] LABS: Alanine Aminotransferase 24 IU/L (<35); Albumin 4.6 g/dL (3.5-5.0); Albumin Globulin Ratio 1.8 (1.0-2.8); Alkaline Phosphatase 69 U/L (38-126); Aspartate Aminotransferase 45 IU/L (14-36); BUN Creatinine Ratio 15.1 (6-22); Bilirubin Total 0.6 mg/dL (0.2-1.3); Blood Urea Nitrogen 13 mg/dL (7-17); Calcium 9.8 mg/dL (8.4-10.2); Carbon Dioxide 29 mmol/L (22-32); Chloride 103 mmol/L (98-107); Cholesterol 236 mg/dL (140-199); Estimated Glomerular Filt Rate > 60 mL/min (>60); Globulin 2.5 g/dL (1.7-4.1); Glucose 94 mg/dL (70-99); HDL Cholesterol 55 mg/dL (40-60); HEMOLYSIS < 15 (0-50); LDL Cholesterol Calculated 151 mg/dL (<100); Potassium 3.7 mmol/L (3.4-5.1); Sodium 140 mmol/L (137-145); Total Protein 7.1 g/dL (6.3-8.2); Triglycerides 151 mg/dL (35-150)
== END ==
PROVIDERS: Family Provider Family Medicine; PCP Family Medicine; Referring Provider Family Medicine; Visit Provider Family Medicine
DX: Z13.220 Encounter for screening for lipoid disorders (principal); M81.0 Age-related osteoporosis without current pathological fracture
CPT/HCPCS: 36415; 80053; 80061

== ENCOUNTER → 2024-12-10 10:41 | Outpatient (CLI) | payer MEDICARE, OTHER, SELFPAY ==
--- NOTE | 2024-12-10 10:43 | DI.RAD.S_ITS ---
PROCEDURE: XR DEXA AXIAL SKELETON INDICATIONS: screening COMPARISON: None. FINDINGS: Lumbar Spine: Bone mineral density 0.788 g/cm2, T score -2.4. Left Femoral Neck: Bone mineral density 0.526 g/cm2, T score -2.9. Left Hip: Bone mineral density 0.727 g/cm2, T score -1.8. Fracture Risk Calculation (when applicable): 10-year fracture risk of a major osteoporotic fracture 16 percent and of a hip fracture 4.1 percent. (T score greater or equal to -1.0 to: NORMAL) (T score from -1.1 to -2.4: OSTEOPENIA) (T score less than or equal to -2.5: OSTEOPOROSIS) IMPRESSION: Osteoporosis--- recommend repeat DEXA in 2 years or less for reassessment of response to treatment. Follow-up guidelines as follows: Osteoporosis: Consider a repeat DEXA and Vertebral Fracture Assessment (VFA) exam in 2 years or sooner if medically necessary, to reassess this patient's status. Osteopenia: Consider a repeat DEXA in 2-3 years to reassess this patient's status, or if there is a new clinical indication. Normal: Consider a repeat DEXA in 5 years or sooner, or if there is a new clinical indication. All treatment decisions require clinical judgment and consideration of individual patient factors, including patient preferences, comorbidities, previous drug use, risk factors not captured in the FRAX model (e.g., frailty, falls, vitamin D deficiency, increased bone turnover, interval significant decline in bone density ) and possible under- or over-estimation of fracture risk by FRAX. In addition, the NOF Guide recommends that FDA-approved medical therapies be considered in postmenopausal women and men age >= 50 years with a: * Hip or vertebral (clinical or morphometric) fracture * T-score of <=-2.5 at the spine or hip * Ten-year fracture probability by FRAX of >= 3% for hip fracture or >=20% for major osteoporotic fracture. Dictated by: Daniel Law M.D. on 12/10/2024 at 21:55 Approved by: Daniel Law M.D. on 12/10/2024 at 21:56
== END ==
PROVIDERS: Family Provider Family Medicine; PCP Family Medicine; Referring Provider Family Medicine; Visit Provider Family Medicine
DX: M81.0 Age-related osteoporosis without current pathological fracture (principal)
CPT/HCPCS: 77080

== ENCOUNTER → 2025-01-31 15:10 | Outpatient (CLI) | payer MEDICARE, OTHER, SELFPAY ==
--- NOTE | 2025-01-31 15:13 | DI.MRI.S_ITS ---
MR breast BI wo/w con: 01/31/2025. BI-RADS: 2
== END ==
LOC: MRI 15:12
PROVIDERS: Family Provider Family Medicine; PCP Family Medicine; Referring Provider Family Medicine; Visit Provider Family Medicine
DX: R92.323 Mammographic fibroglandular density, bilateral breasts (principal); Z91.89 Other specified personal risk factors, not elsewhere classified; Z80.3 Family history of malignant neoplasm of breast
CPT/HCPCS: 77049; A9579

== ENCOUNTER → 2025-02-21 13:33 | Outpatient (CLI) | payer MEDICARE, OTHER, SELFPAY ==
--- NOTE | 2025-02-21 13:35 | DI.US.S_ITS ---
PROCEDURE: US RENAL COMPLETE INDICATIONS: kidney stone TECHNIQUE: Real-time scanning was performed of the kidneys and bladder, with image documentation. COMPARISON: [facility], , US RENAL COMPLETE, 01/04/2024, 16:05. FINDINGS: Kidneys: Kidneys are normal in size. Right kidney measures 11.5 cm long; left kidney measures 11.5 cm long. Right renal cortical thickness is 1.4 cm; left renal cortical thickness is 1.7 cm. Renal cortical echotexture is normal. No hydronephrosis or renal stone of the right kidney. Mild hydronephrosis of the left kidney, grossly unchanged from prior exam. Previous seen renal stones are not visualized on this exam. Bladder: Bilateral ureteral jets are noted with color Doppler interrogation. (Of note, ureteral jets may not be detectable in up to 25% of cases due to insufficient differences in specific gravity between ureteral and bladder urine). The bladder is unremarkable. Miscellaneous: No free pelvic fluid. IMPRESSION: 1. Previously seen renal stones are not visualized on this exam. 2. Mild left hydronephrosis, grossly unchanged. Dictated by: Eva Howard M.D. on 02/21/2025 at 14:35 Approved by: Eva Howard M.D. on 02/21/2025 at 14:40
== END ==
LOC: US 13:33
PROVIDERS: Family Provider Family Medicine; PCP Family Medicine; Referring Provider Physician Assistant Medical; Visit Provider Physician Assistant Medical
DX: N20.0 Calculus of kidney (principal); N13.30 Unspecified hydronephrosis
CPT/HCPCS: 76770